=== PATIENT | male | born 1955 | race Caucasian/White ===

== ENCOUNTER 2017-08-26 10:51 | Emergency (ER) | payer OTHER, SELFPAY ==
[2017-08-26 10:52] VITALS: BP 153/98; PULSE 76; RESP 14; TEMP 37.3; O2SAT 96; BMI 24.9
--- NOTE | 2017-08-26 11:12 | CT_ITS ---
STUDY: CT ABDOMEN AND PELVIS WITHOUT CONTRAST REASON FOR EXAM: Male, 61 years old. 2 day history of left lower quadrant abdominal pain with cramping. RADIATION DOSAGE (If Supplied By Facility): CTDIvol = ( 6.93 ) mGy, DLP = ( 337.65 ) mGycm TECHNIQUE: Transaxial images were obtained from the dome of the diaphragm to the symphysis pubis without oral contrast, and without intravenous contrast. Sagittal and coronal images were reconstructed. Individualized dose optimization techniques were used for this CT. COMPARISON: None. FINDINGS: Small calcified granuloma in the posterior medial segment of the left lower lobe. The visualized portions of the heart are within normal limits. Normal liver. Normal gallbladder and extrahepatic biliary system. There are multiple benign calcified granulomata of the spleen. Normal pancreas. Normal bilateral adrenal glands. Normal right kidney. Normal left kidney. There is a small hiatal hernia. Normal small intestine. There is diverticulosis, with thickening of the colon wall, and pericolonic inflammation changes consistent with acute diverticulitis. The appendix is visualized and appears normal. There is scattered atherosclerotic calcification of the abdominal aorta, without a demonstrated aneurysm. Normal inferior vena cava. There is borderline retroperitoneal lymphadenopathy with enlarged nodes no greater than 10mm in the short axis diameter. Normal urinary bladder. There are prostatic calcifications. There is a small umbilical hernia containing fat. Small left inguinal hernia containing fat. There are degenerative changes of the visualized lumbar spine. Limbus vertebrae of the superior endplate of the L4 vertebrae. CT/Abdomen/Pelvis without Cont IMPRESSION: Circumferential wall thickening with increased markings in the surrounding peritoneal fat involving the distal descending colon and sigmoid colon into both acute diverticulitis. Radiographic follow-up is recommended to rule out possible underlying neoplastic process. No abnormal fluid collection is seen at this time. Electronically Signed: Jose F Hernandez MD at 12:54 EDT Tel [phone], Service support ,
[2017-08-26 11:41] LABS: Bacteria 0 SEEN /hpf (None Seen); Mucous, Urine 0 SEEN /hpf (<or=2+); Red Blood Cells-Urine 0 SEEN /hpf (0-5); Squamous Epithelial Cells - UA 0 SEEN /hpf (0-5)
[2017-08-26 11:43] LABS: Absolute Neutrophil Count 8.6 X10^3/uL (2.0-7.7); Eosinophil# 0.02 X10^3/uL; Eosinophils% 0.2 % (0-5); Hematocrit 45.4 % (40-54); Hemoglobin 15.6 g/dl (13.0-16.5); Lymphocyte % 6.7 % (19-41); Mean Corp Hgb Conc 34.4 g/gl (32-36); Mean Corpuscular Hgb 32.8 pg (27.0-32.0); Mean Corpuscular Volume 95.4 fL (80-94); Mean Platelet Vol. 9.9 fl (6.2-12.0); Monocyte# 1.14 X10^3/uL; Monocyte% 10.9 % (0-10); Neutrophil # 8.56 X10^3/uL (2.7-7.7); Neutrophil % 82.1 % (47-70); Platelet Count 209 K/mm3 (150-450); RBC Distribution Width CV 12.7 % (11.6-14.6); RBC Distribution Width SD 44.1 fl (35.1-43.9); Red Blood Count 4.76 M/mm3 (4.6-6.2); White Blood Count 10.4 K/mm3 (4.4-11.0)
[2017-08-26 11:43] LABS: Color, Urine Yellow (Yellow); Glucose, Dipstick Normal (Normal); Ketone-Dipstick Negative (Negative); Leukocyte Esterase-Dipstick 25 /ul (Negative); Nitrite-Dipstick Negative (Negative); Occult Blood-Urine Negative /ul (Negative); Protein-Dipstick Negative (Negative); Urine Bilirubin Dipstick Negative (Negative); Urine Clarity Sl. Cloudy (Clear); Urine Urobilinogen Normal (Normal)
[2017-08-26] MEDS: 0.9% Normal Saline 1,000 ML 125 ML IV ×2 (11:45→11:55)
[2017-08-26 11:49] LABS: POSITIVE COUNT NO; POSITIVE DIFFERENTIAL NO; POSITIVE MORPHOLOGY NO
[2017-08-26 11:54] LABS: Anion Gap 7 (5-15); BUN 14 mg/dL (7-18); BUN/Creat Ratio 14.7 RATIO (10-20); Calcium,Total 8.9 mg/dL (8.5-10.1); Chloride 102 mmol/L (98-107); Creatinine, Serum 0.95 mg/dL (0.70-1.30); EST Glomerular Filtration Rate 85 mL/min (>60); Est Glom Filt Rate - Afr Amer 103 mL/min (>60); Estimated Creatinine Clearance 84.31 ml/min; Glucose 105 mg/dL (74-106); Sodium Level 138 mmol/L (136-145)
[2017-08-26 11:57] LABS: White Blood Cells 0-5 SEEN /hpf (0-5)
[2017-08-26 13:00] VITALS: BP 172/111; PULSE 72; RESP 16; O2SAT 97
[2017-08-26 13:10] VITALS: BP 172/111; PULSE 80; RESP 16; O2SAT 98
--- NOTE | 2017-08-26 13:15 | ED.DCSUM_ITS ---
- ER Visit Summary Date of Service: 08/26/17 Chief Complaint: [Abdominal pain] History of Present Illness: The patient is a 61 M [presents the emergency department with abdominal pain that started yesterday. Patient was seen at urgent care today and sent to the ER. Patient denies any blood in his stool or black tarry stool. Patient denies any fever. Patient states that intermittently he will have severe pain to the left lower quadrant. Patient is never had discomfort like this before. Patient has not had any fevers. Patient denies urinary symptoms.] Physical Examination: [HEENT-PERRLA, EOMI. Cranial nerves II through XII grossly intact. TMs clear. Mucous membranes moist. No adenopathy. Cardiovascular-regular rate and rhythm without murmur or ectopy Lungs-clear to auscultation, chest wall stable without crepitus or subcu emphysema Abdomen-normoactive bowel sounds, soft. Patient has tenderness to the left lower quadrant with some guarding. There is no rebound, rigidity, or perineal signs. Extremities-intact ?4, normal range of motion, normal pulses, atraumatic] Test Results: [CBC with differential obtained showing a 10.4, hemoglobin 15.6, hematocrit 45, placed 209. Chemistries unremarkable. Urinalysis was normal. CT flank showed diverticulitis of the descending and sigmoid colon and recommended follow-up to resolution as neoplastic process could not be ruled out.] Emergency Department Course and Treatment: [She was started on Cipro and Flagyl p.o.] Treatment Plan: [Patient will be given a prescription for Cipro and Flagyl as well as [place] for pain. Patient advised to follow-up with his primary care physician within next 3-5 days.] Disposition: [Discharged home in stable condition. Patient advised to return if worsening pain, fever, bloody stools, or condition should worsen in any way. ] Patient understands importance of following up with primary care physician and follow-up imaging to resolution of symptoms. Patient states that he is due for another colonoscopy as well as he is 1 year overdue. Impression: [Abdominal pain Acute diverticulitis] This note was generated with [employer] software. It may contain incorrect words, spelling, and punctuation that were not noted in review of the chart prior to signing ED Disposition - Plan for ED Patient: Chief Complaint: Abd Pain Referrals: Finn Lovett MD [Primary Care Provider] -
--- NOTE | 2017-08-26 13:15 | ED.DEP ---
ED Disposition - Plan for ED Patient: Chief Complaint: Abd Pain Instructions: ED Diverticulitis Prescriptions: Hydrocodone Bitart/Apap 5-325 [[place] 5MG-325MG] 1 tab PO Q4H PRN PRN 2 Days #10 tab PRN Reason: Pain Metronidazole [Flagyl] 500 mg PO Q8H #30 tab Ciprofloxacin [Cipro] 500 mg PO BID #20 tab Referrals: Finn Lovett MD [Primary Care Provider] - 3-5 Days
[2017-08-26] MEDS: metroNIDAZOLE 500 MG Tablet PO (13:19)
[2017-08-26] MEDS: Ciprofloxacin 250 MG Tablet 500 MG PO (13:19)
--- NOTE | 2017-08-26 13:19 | DCINST.ED_ITS ---
ED Disposition - Plan for ED Patient: Chief Complaint: Abd Pain Instructions: ED Diverticulitis Prescriptions: Hydrocodone Bitart/Apap 5-325 [[place] 5MG-325MG] 1 tab PO Q4H PRN PRN 2 Days #10 tab PRN Reason: Pain Metronidazole [Flagyl] 500 mg PO Q8H #30 tab Ciprofloxacin [Cipro] 500 mg PO BID #20 tab Referrals: Finn Lovett MD [Primary Care Provider] - 3-5 Days
== END 2017-08-26 13:34 | disposition home or self-care (01) ==
PROVIDERS: Emergency Provider Emergency Medicine; Family Provider Family Medicine; PCP Family Medicine
DX: K57.32 Diverticulitis of large intestine without perforation or abscess without bleeding (principal); R10.32 Left lower quadrant pain
CPT/HCPCS: 74176; 80048; 81001; 85025; 96360; 96361; 99284; J7030; A4216

== ENCOUNTER 2019-03-16 18:32 | Emergency (ER) | payer OTHER, SELFPAY ==
[2019-03-16 18:34] VITALS: BP 155/79; PULSE 73; RESP 18; TEMP 36.4; O2SAT 99; BMI 23.3
--- NOTE | 2019-03-16 18:50 | ED.VISSUMM ---
- ER Visit Summary Date of Service: 03/16/19 Chief Complaint: Left leg swelling History of Present Illness: The patient is a 63 M who presents with left leg swelling that began last night. Patient states he noticed it when he was getting undressed last night. Patient noted some indentation where his sock was. Patient denies any pain. Patient denies any paresthesias or weakness. Patient denies any fevers or chills. Patient denies any chest pain or shortness of breath. Patient denies any nausea or vomiting. Patient denies any recent surgery or recent travel. Physical Examination: Vital signs are stable. Patient is afebrile. Patient is in no acute distress. Heart was regular rate and rhythm. Lungs are clear and equal bilaterally. Abdomen is soft and nontender. Cranial nerves II through XII are intact. There are no focal motor or sensory deficits noted. Extremities are intact. There is 1+ nonpitting edema of the left lower extremity. There is no calf tenderness. Posterior tibial pulses are equal bilaterally. There is no pain with dorsiflexion of the ankles. Test Results: CBC and basic metabolic profile were obtained and were essentially within normal limits. Creatinine was slightly elevated at 1.32. PT with INR and PTT were obtained and were normal. D-dimer was obtained was normal. Emergency Department Course and Treatment: Patient was instructed to elevate his left leg. Patient was instructed to follow-up with his primary care physician in 5 to 7 days. Patient understood and was agreeable with the plan. All questions were answered. Disposition: Discharge home Impression: Left leg edema This note was generated with [employer] dictation software. It may contain incorrect words, spelling, and punctuation that were not noted in review of the chart prior to signing ED Disposition - Plan for ED Patient: Disposition: Home or Assisted Living Diagnosis: Leg edema, left Instructions: ED Peripheral Edema, Unilateral Referrals: Finn Lovett MD [Primary Care Provider] - 3-5 Days
[2019-03-16 19:13] LABS: Absolute Lymphocyte Count 1.18 X10^3/uL (0.83-4.51); Absolute Neutrophil Count 2.6 X10^3/uL (2.0-7.7); Basophil# 0.02 X10^3/uL; Basophil% 0.5 % (0-1); Eosinophil# 0.09 X10^3/uL; Hematocrit 42.2 % (40-54); Hemoglobin 14.3 g/dL (13.0-16.5); Lymphocyte # 1.18 X10^3/ul (4.0); Lymphocyte % 26.8 % (19-41); Mean Corp Hgb Conc 33.9 g/dL (32-36); Mean Corpuscular Hgb 32.3 pg (27.0-32.0); Mean Corpuscular Volume 95.3 fL (80-94); Mean Platelet Vol. 9.7 fl (6.2-12.0); Monocyte# 0.53 X10^3/uL; NRBC Flagged by Analyzer 0 % (0-5); Neutrophil # 2.58 X10^3/uL (2.7-7.7); Neutrophil % 58.5 % (47-70); Platelet Count 212 K/mm3 (150-450); RBC Distribution Width CV 12.6 % (11.6-14.6); RBC Distribution Width SD 44.4 fl (35.1-43.9); Red Blood Count 4.43 M/mm3 (4.6-6.2); White Blood Count 4.4 K/mm3 (4.4-11.0)
[2019-03-16 19:25] LABS: Anion Gap 7 (5-15); BUN 21 mg/dL (7-18); BUN/Creat Ratio 15.9 RATIO (10-20); Calcium,Total 8.9 mg/dL (8.5-10.1); Chloride 103 mmol/L (98-107); Creatinine, Serum 1.32 mg/dL (0.70-1.30); EST Glomerular Filtration Rate 58 mL/min (>60); Est Glom Filt Rate - Afr Amer 70 mL/min (>60); Estimated Creatinine Clearance 59.14 ml/min; Glucose 118 mg/dL (74-106); Potassium 3.9 mmol/L (3.5-5.1); Sodium Level 140 mmol/L (136-145)
[2019-03-16 19:29] LABS: Prothrombin Time (Protime)PT. 12.9 SECONDS (11.7-14.9)
[2019-03-16 19:30] LABS: Partial Thromboplast Time 29.1 Seconds (24.1-36.2)
[2019-03-16 19:36] LABS: D-Dimer Quantitative (DVT/PE) 0.48 FEU/ug/m (0.27-0.49)
[2019-03-16 19:56] VITALS: RESP 16
== END 2019-03-16 19:57 | disposition home or self-care (01) ==
PROVIDERS: Emergency Provider Emergency Medicine; Family Provider Family Medicine; PCP Family Medicine
DX: R60.0 Localized edema (principal); I10 Essential (primary) hypertension
CPT/HCPCS: 80048; 85025; 85379; 85610; 85730; 99282; A4216

== ENCOUNTER 2021-03-28 15:13 | Outpatient (CLI) | payer OTHER, SELFPAY ==
[2021-03-28 15:48] VITALS: BP 133/81; PULSE 67; RESP 16; TEMP 36.9; O2SAT 99; BMI 22.2
[2021-03-28] MEDS: 0.9% Saline Lock 10 ML Syringe IV (15:51)
[2021-03-28 16:21] VITALS: BP 131/71; PULSE 64; RESP 16; TEMP 36.6; O2SAT 99
[2021-03-28 17:21] VITALS: BP 135/84; PULSE 61; RESP 16; TEMP 36.6; O2SAT 100
== END 2021-03-28 17:21 | disposition home or self-care (01) ==
LOC: MS3OUT 15:13 → MS3 15:14
PROVIDERS: PCP Family Medicine; Referring Provider Nurse Practitioner Adult Health; Visit Provider Nurse Practitioner Adult Health
DX: Z23 Encounter for immunization (principal); U07.1 COVID-19
CPT/HCPCS: J7050; M0245; Q0245; A4216

== ENCOUNTER 2022-08-28 19:59 | Emergency (ER) | payer MEDICARE, SELFPAY ==
[2022-08-28 20:00] VITALS: BP 137/87; PULSE 60; RESP 18; TEMP 36.7; O2SAT 98; BMI 23.2
--- NOTE | 2022-08-28 20:10 | ED.VIS.FALL ---
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 He about about 1 step up when he fell forward and struck his head on the ground. No LOC. He states he finished the job when he got home his family was very concerned with the amount of bruising and sent him to the ED. He denies blood thinners. He has no headache, vision changes, nausea, vomiting. He has history of remote neck surgery and chronic neck pain and reports no increase in pain. He has no other injuries. Tetanus is up-to-date. PFSH <BUBBA Kang - Last Filed: 08/28/22 20:54> [facility] Medical History (Updated 08/28/22 @ 20:15 by BUBBA Kang) Carpal tunnel syndrome Hypertension Lower back injury Home Medications lisinopril 10 mg tablet 10 mg PO DAILY 03/28/21 [History Last Taken Unknown] Allergy/AdvReac Type Severity Reaction Status Date / Time terbinafine Allergy Severe Rash Verified 08/28/22 20:03 Surgical History (Updated 08/28/22 @ 20:11 by Ne Bryan) H/O neck surgery Social History Smoking Status: Never smoker ROS <BUBBA Kang - Last Filed: 08/28/22 20:54> ROS ED ROS Narrative Constitutional: Negative for fever, chills, malaise. Eyes: Negative for visual change. CVS: Negative for chest pain. Respiratory: Negative for shortness of breath. GI: Negative for nausea, vomiting. Neuro: Negative for headache, motor/sensory dysfunction. Skin: Positive for wound. Musc: Negative for joint pain, swelling, trauma. EXAM <BUBBA Kang - Last Filed: 08/28/22 20:54> Physical Exam Narrative Exam Narrative: CONST: Patient sitting in no acute distress. EYES: Normal inspection. HEAD: Ecchymosis and mild swelling right frontal temporal region with right raccoon eye, 1 cm laceration lateral to the right eye. No bony tenderness or crepitus. No epistaxis or nasal septal hematoma, no hemotympanum, no CSF otorrhea or rhinorrhea. NECK: Normal inspection. No midline spinal tenderness, no step off or crepitus. RESP: No respiratory distress, CTAB. Chest wall nontender. CVS: Regular rate and rhythm, no murmur, no gallop. ABD: Soft and nontender, no guarding or rebound, nondistended. Back: Normal inspection, no midline spinal tenderness or step-offs. SKIN: Small laceration lateral to right eye. EXTREMITIES: Normal appearance, full range of motion, 2+ radial and PT pulses. NEURO: Oriented x4. PSYCH: Normal affect. Const Vital Signs: 08/28/22 20:00 Temperature 98.0 F Temperature Source Temporal Pulse Rate 60 Respiratory Rate 18 Blood Pressure 137/87 H Blood Pressure Mean 103 Pulse Ox 98 Oxygen Delivery Method Room Air <Dr. Jason Dias DO - Last Filed: 08/29/22 00:29> Physical Exam Const Vital Signs: 08/28/22 20:00 Temperature 98.0 F Temperature Source Temporal Pulse Rate 60 Respiratory Rate 18 Blood Pressure 137/87 H Blood Pressure Mean 103 Pulse Ox 98 Oxygen Delivery Method Room Air MDM <BUBBA Kang - Last Filed: 08/28/22 20:54> [facility] Narrative Medical decision making narrative: History gathered from: Patient and Patient had a mechanical fall with closed head injury without loss of consciousness. He is awake and alert, GCS 15. Vital signs within normal limits. He does have bruising and soft tissue swelling to the right upper half of his face and right periorbital ecchymosis. There is a small laceration lateral to his right eye that is slowly bleeding and will require repair. There is no significant bony tenderness or crepitus. He has no midline spinal tenderness but does report chronic neck pain and history of remote surgery. He is neurologically intact and has no other injuries. CT scans of the brain, facial bones, and CT spine were obtained and are all negative for acute findings. Patient given head injury return precautions and discharged in stable condition. Differential: Facial contusions, underlying skull fracture or intracranial bleed Procedure note: 1 cm linear laceration lateral to right eye requires repair. I anesthetized the area with half a cc of 1% lidocaine and thoroughly cleansed the area with Shur-Clens. Wound explored and there is no foreign body. Was prepped and draped in sterile condition and I closed it with 2 simple interrupted sutures of 6-0 Ethilon with good hemostasis and wound repair. Patient tolerated procedure well with no complications. His tetanus is up-to-date. Discussed wound care and suture removal in 4 to 5 days. Radiography Diagnostic Testing: Clinical Impression(s) from Imaging Studies Brain CT 08/28/22 20:25 IMPRESSION: There are no acute intracranial findings. There is no underlying fracture. Soft tissue swelling of the periorbital region and right forehead. Electronically Signed: Chong Forrester MD at 20:47 EDT , Cervical Spine CT 08/28/22 20:25 IMPRESSION: Degenerative changes of the cervical spine. There is mild straightening of the normal cervical lordosis. This can suggest neck strain. Electronically Signed: Chong Forrester MD at 20:49 EDT , Facial/Sinus 08/28/22 20:25 IMPRESSION: There is no underlying fracture. Soft tissue swelling of the periorbital region and right forehead. Electronically Signed: Chong Forrester MD at 20:48 EDT , <Dr. Jason Dias, DO - Last Filed: 08/29/22 00:29> MDM Radiography Diagnostic Testing: Clinical Impression(s) from Imaging Studies Brain CT 08/28/22 20:25 IMPRESSION: There are no acute intracranial findings. There is no underlying fracture. Soft tissue swelling of the periorbital region and right forehead. Electronically Signed: Chong Forrester MD at 20:47 EDT , Cervical Spine CT 08/28/22 20:25 IMPRESSION: Degenerative changes of the cervical spine. There is mild straightening of the normal cervical lordosis. This can suggest neck strain. Electronically Signed: Chong Forrester MD at 20:49 EDT , Facial/Sinus 08/28/22 20:25 IMPRESSION: There is no underlying fracture. Soft tissue swelling of the periorbital region and right forehead. Electronically Signed: Chong Forrester MD at 20:48 EDT , Treatment and Re-Evaluation Narrative: ED attending note: I evaluated the patient in conjunction with the DEVON. I agree with his/her statements and above findings. I have personally performed a face to face assessment of the patient and have reviewed the DEVON Note. I performed a substantive portion of the visit including all aspects of the following. I personally saw the patient performed chart review, physical exam, reviewed labs, imaging (if obtained), and formulated a treatment and management plan. Exam: Nursing triage notes reviewed, Vital signs reviewed Primary Survey Airway: Intact Breathing: Bilateral breath sounds Circulation: Palpable bilateral femorals, Palpable bilateral radial, Palpable bilateral DP and Palpable bilateral PT Disability / Spine precautions GCS Score: Eye Openin Verbal Response: 5 Motor Response: 6 Secondary Survey Constitutional: Please see MDM Head: Bruising noted to the right forehead, zygomatic arch, small laceration noted lateral to the right eye, no cephalhematoma, midface is stable Eye: Pupils equal round and reactive to light, Extraocular muscles intact and No periorbital ecchymosis or stepoff, no evidence of entrapment ENT: Oropharynx clear, no lacerations, no hemotympanum, no raccoon eyes or valdivia sign Cervical spine / Neck: No cervical spine bony tenderness, crepitance, or stepoff deformity Trachea midline Lungs: Clear to auscultation, No asymmetric rise and No crepitus, no flail chest Cardiac: Regular rate and rhythm and No murmurs Abdomen: Soft, Nontender and No rebound Pelvis: Pelvis stable to compression : No evidence of genital injury Back: No midline bony tenderness to thoracic/lumbar/sacral spines Neuro: At baseline, intact strength and sensation in bilateral upper and lower extremities. 2+ patellar reflexes bilaterally. Extremities: NO gross Deformities Psych: Normal affect Nursing triage notes reviewed, Vital signs reviewed MDM/plan: Chief Complaint: Mechanical fall, head trauma External records reviewed: I considered the following differential diagnosis: ICH, cervical spine injury, facial fracture dislocation Primary secondary trauma surveys were remarkable for the above differential diagnosis We obtained imaging of the head, cervical spine and face. These were negative. The patient's laceration was repaired by the physician management assistant. Please see her above procedure note. Patient's tertiary trauma exam revealed no evidence of new traumatic injuries. He is appropriate for discharge home with strict return precautions and follow-up instructions. Factors affecting care: None Social determinants of health: Never smoker History obtained from others: The patient's Shared decision making: I will have a discussion with the patient and or visitors regarding risk/benefits of further testing or admission. They will be made aware of of the risk/benefits inherent in this decision they will be given the opportunity to voice understanding. Consults: None Discharge Plan Triage Chief Complaint: Fall ED Midlevel Provider: Jessica Gardiner ED Provider: Jason Dias Dx/Rx/DC Orders Clinical Impression: Closed head injury without loss of consciousness, Facial laceration Instructions: ED Head Injury (Adult) Prescriptions: No Action lisinopril 10 mg tablet 10 mg PO DAILY Primary Care Provider: Finn Lovett Referrals: Finn Lovett MD [Primary Care Provider] - Activity Restrictions/Additional Instructions: Your stitches need taken out in 4 to 5 days. Take Tylenol or Motrin as needed for pain. Return for worsening symptoms such as severe headache, vision changes, vomiting, confusion etc. Disposition Disposition: Home, Self Care Discharge Date/Time: 08/28/22 21:00
--- NOTE | 2022-08-28 20:25 | CT_ITS ---
EXAM: CT SPINE - CERVICAL WITHOUT IV REASON FOR EXAM: Male, 66 years old. NECK PAIN neck pain HISTORY: NECK PAIN neck pain Individualized dose optimization techniques were used for this CT. TECHNIQUE: Multiplanar images were obtained of the cervical spine. IV contrast was not utilized. COMPARISON: None. FINDINGS: The vertebral bodies do maintain their height. The odontoid process is intact. No pre-vertebral soft tissue swelling is seen. The intravertebral disc height is lost. There are scattered lymph nodes in the neck. There are degenerative changes of the osseous structures. There is bilateral facet arthropathy. There are scattered levels of foraminal stenosis. There are vascular calcifications. There is mild straightening of the normal cervical lordosis. This can suggest neck strain. Anterior fusion plate and fusion disc material at C5-6. CT/Spine Cervical without Contras IMPRESSION: Degenerative changes of the cervical spine. There is mild straightening of the normal cervical lordosis. This can suggest neck strain. Electronically Signed: Chong Forrester MD at 20:49 EDT ,
--- NOTE | 2022-08-28 20:25 | CT_ITS ---
STUDY: CT BRAIN WITHOUT CONTRAST REASON FOR EXAM: Male, 66 years old. head injury TECHNIQUE: Transaxial CT imaging of the brain was performed without administration of intravenous contrast material. Individualized dose optimization techniques were used for this CT. COMPARISON: None FINDINGS: Normal calvarium. There is no underlying fracture. Soft tissue swelling of the periorbital region and right forehead. Normal size ventricles and extra-axial spaces for the patient''s age. Normal white matter tracts of the cerebral hemispheres. Normal basal ganglia and thalami. Normal brainstem. Normal cerebellum. There is no intracranial hemorrhage. There are no findings of an acute ischemic infarction. Normal visualized paranasal sinuses. ASPECTS 10 CT/Brain/Head without Contrast IMPRESSION: There are no acute intracranial findings. There is no underlying fracture. Soft tissue swelling of the periorbital region and right forehead. Electronically Signed: Chong Forrester MD at 20:47 EDT ,
--- NOTE | 2022-08-28 20:25 | CT_ITS ---
EXAM: CT MAXILLOFACIAL WITHOUT INTRAVENOUS CONTRAST CLINICAL INDICATION: right sided facial injury r/o fracture TECHNIQUE: Helically acquired images were obtained of the face without intravenous contrast. This CT exam was performed using one or more of the following dose reduction techniques: automated exposure control, adjustment of the mA and/or kV according to patient size, and/or use of iterative reconstruction technique. RADIATION DOSE: CTDIvol = 29.38 mGy, DLP = 620.92 mGy-cm COMPARISON: No relevant prior studies available. FINDINGS: BONES/JOINTS: There is no underlying fracture. Soft tissue swelling of the periorbital region and right forehead. No discrete lytic or blastic abnormalities. SOFT TISSUES: See above. ORBITS: Unremarkable. Both globes are unremarkable. Extraocular muscles are normal. Retrobulbar fat appears unremarkable. SINUSES: Unremarkable as visualized. Clear. MASTOID AIR CELLS: Unremarkable as visualized. Clear. DENTAL: No acute findings. No periodontal osseous erosion. CT/Sinus/Facial Bone IMPRESSION: There is no underlying fracture. Soft tissue swelling of the periorbital region and right forehead. Electronically Signed: Chong Forrester MD at 20:48 EDT ,
[2022-08-28] MEDS: Lidocaine 1% (20 ml mdv) 20 ML Vial INFILT (20:55)
== END 2022-08-28 21:00 | disposition home or self-care (01) ==
PROVIDERS: Emergency Provider Emergency Medicine; PCP Family Medicine; Visit Provider Emergency Medicine
DX: S01.81XA Laceration without foreign body of other part of head, initial encounter (principal); I10 Essential (primary) hypertension; W10.9XXA Fall (on) (from) unspecified stairs and steps, initial encounter; S09.8XXA Other specified injuries of head, initial encounter; Y93.89 Activity, other specified; Z79.899 Other long term (current) drug therapy
CPT/HCPCS: 12011; 70450; 70486; 72125; 99282

== ENCOUNTER 2022-08-30 09:43 | Emergency (ER) | payer MEDICARE, SELFPAY ==
[2022-08-30 09:43] VITALS: BP 176/110; PULSE 77; RESP 14; TEMP 36.2; O2SAT 99; BMI 22.9
--- NOTE | 2022-08-30 10:04 | EX.ED.UPPERE ---
HPI History of Present Illness Chief Complaint: Upper Extremity Injury [facility] Medical History (Updated 08/30/22 @ 11:[address] Jason Dias, DO) Carpal tunnel syndrome Hypertension Lower back injury Home Medications lisinopril 10 mg tablet 10 mg PO DAILY 03/28/21 [History Last Taken Unknown] Allergy/AdvReac Type Severity Reaction Status Date / Time terbinafine Allergy Severe Rash Verified 08/30/22 09:45 Surgical History H/O neck surgery Social History Smoking Status: Never smoker EXAM Physical Exam Const Vital Signs: 08/30/22 09:43 Temperature 97.2 F L Temperature Source Temporal Pulse Rate 77 Respiratory Rate 14 Blood Pressure 176/110 H Blood Pressure Mean 132 Pulse Ox 99 Oxygen Delivery Method Room Air [facility] Medical decision making narrative: HISTORY OF PRESENT ILLNESS: 66-year-old male here for left hand pain. Does note a fall on Wednesday. States had no pain initially but since developed bruising and pain over the base of the first digit of the left hand. Denies any prior injury. He is right-hand dominant. States the pain is constant, severe without alleviating exacerbating features. He does also endorse worsening lower neck pain. REVIEW OF SYSTEMS: Pertinent positives: Left hand pain Pertinent negatives: Loss of sensation, loss of movement in the left upper extremity PHYSICAL EXAM: Nursing triage notes reviewed, Vital signs reviewed Constitutional: please see mdm HENT: MMM Eyes: Pupils equal round and reactive to light, Extraocular muscles intact Neck: No stridor, no JVD, full neck ROM, TTP over base of cervical spine no step-offs deformities. Extremities: Bruising over left hand TTP over base of the first metatarsal, positive scaphoid bone tenderness, Neuro: Intact 5/5 strength with ok sign (median), intact finger abduction (ulnar) intact wrist extension (radial n). Intact sensation in the radial, ulnar, and median nerve distributions. Skin: No rash or lesions noted MEDICAL DECISION MAKING: Chief Complaint: Left hand pain, neck pain External records reviewed: Seen on 08/28/2022. Underwent CT scan of the brain cervical spine and face. Imaging was [facility] Narrative: I considered the following differential diagnosis: Hand contusion, fracture dislocation I obtained imaging of the left hand. X-ray showed no evidence of acute fracture dislocation. Given scaphoid tenderness I did place the patient in thumb spica splint and encouraged him to follow-up with orthopedics for outpatient reevaluation. I assessed the patient's neck pain there is no obvious upper extremity neurologic deficit or step-off or deformity in the setting of a negative CT scan of cervical spine 2 days ago. I would low suspicion for cervical spine fracture dislocation or life or limb during cervical spine injury. Factors affecting care: None Social determinants of health: Elderly History obtained from others: Shared decision making: I will have a discussion with the patient and or visitors regarding risk/benefits of further testing or admission. They will be made aware of of the risk/benefits inherent in this decision they will be given the opportunity to voice understanding. Consults: None Discharge Plan Triage Chief Complaint: Upper Extremity Injury ED Provider: Jason Dias Dx/Rx/DC Orders Clinical Impression: Left wrist sprain Instructions: ED Possible Wrist Fracture, ED Wrist Sprain Prescriptions: No Action lisinopril 10 mg tablet 10 mg PO DAILY Primary Care Provider: Finn Lovett Referrals: Jim De La Cruz MD [Non-Staff] - Activity Restrictions/Additional Instructions: Thank you for trusting us with your care today! Please take Tylenol (2 pills, 650 mg), ibuprofen (2 pills, 400 mg) every 6 hours as needed for pain and fever control. Please return to the emergency department if your symptoms change or worsen. Please follow with your primary care physician for further outpatient evaluation and management. Disposition Disposition: Home, Self Care
--- NOTE | 2022-08-30 10:35 | RAD_ITS ---
STUDY: X-RAY - LEFT HAND REASON FOR EXAM: Male, 66 years old. base of the 1st TTP TECHNIQUE: 3 view(s) of the hand. COMPARISON: None. FINDINGS: There are severe narrowing of the second third MCP joint spaces. Moderate to severe narrowing of the third MCP joint space. Bulky osteophyte formation is present around the head of the third metacarpal bone. Normal radiocarpal articulation. Normal distal radioulnar joint. There is moderate degenerative arthrosis of the carpometacarpal (CMC) articulation of the thumb. There is also moderate degeneration of the triscaphe articulation. Normal second through fifth carpometacarpal joints. Normal metacarpi. Normal metacarpophalangeal joint of the thumb. Normal interphalangeal joint of the thumb. Normal proximal and distal phalanges of the thumb. Normal proximal and distal interphalangeal joints of the second through fifth fingers. Normal phalanges of the second through fifth fingers. The soft tissue structures are unremarkable. RAD/Hand Min 3 Views IMPRESSION: Degenerative joint disease of the hand and wrist, as described above. Electronically Signed: Anibal Garcia MD at 11:16 EDT ,
== END 2022-08-30 12:00 | disposition home or self-care (01) ==
PROVIDERS: Emergency Provider Emergency Medicine; PCP Family Medicine; Visit Provider Emergency Medicine
DX: S63.92XA Sprain of unspecified part of left wrist and hand, initial encounter (principal); I10 Essential (primary) hypertension; Z79.899 Other long term (current) drug therapy; W19.XXXA Unspecified fall, initial encounter
CPT/HCPCS: 73130; 99283

== ENCOUNTER → 2024-03-13 | Outpatient (CLI) | payer MEDICARE, SELFPAY ==
--- NOTE | 2024-03-13 06:34 | ECHOD_ITS ---
Reason For Study: ARRHYTHMIA Procedure This was a 2D Doppler, Color Flow transthoracic echocardiogram. Exam performed in department. Left Ventricle Normal LV size. The estimated ejection fraction is 60 %. Normal diastology for age. No regional wall motion abnormalities noted. Right Ventricle Normal RV size. Normal systolic function. Atria The left and right atria are normal. Prominent eustachian valve. Bubble contrast study is negative for PFO/ASD. Mitral Valve The mitral valve is structurally normal. No prolapse or stenosis seen. Mild (1+) mitral valve insufficiency. Tricuspid Valve Normal tricuspid valve. Mild (1+) tricuspid valve insufficiency. Pulmonary artery systolic pressure is 26 mmHg. Aortic Valve Trisinus/trileaflet aortic valve. Mild focal aortic valve thickening. Pulmonic Valve Normal pulmonic valve. Mild (1+) pulmonic valve insufficiency. Great Vessels Mildly dilated aortic root. Pericardium/Pleural No pericardial effusion. Medication 22 gauge I.V. with prn adaptor inserted into right arm. Performed a rapid injection of agitated mix of 9 cc saline and 1cc air to assess for atrial septal defect. MMode/2D Measurements & Calculations LVIDd: 5.4 cm IVSd: 1.0 cm LVOT diam: 2.3 cm LVIDs: 3.0 cm LVPWd: 0.92 cm RVDd: 3.8 cm FS: 44.4 % LVOT area: 4.2 cm2 asc Aorta Diam: 4.2 cm LAV(MOD-bp): 47.3 ml LVAd ap4: 24.5 cm2 LAV(MOD-bp) Indexed: 24.6 ml/m2 LVLd ap4: 7.3 cm LAV(MOD-sp2): 50.9 ml EDV(MOD-sp4): 66.9 ml LAV(MOD-sp4): 44.7 ml EDV(sp4-el): 69.5 ml LVAs ap4: 12.4 cm2 LVLs ap4: 5.7 cm ESV(MOD-sp4): 22.2 ml ESV(sp4-el): 22.9 ml EF(MOD-sp4): 66.9 % EF(sp4-el): 67.0 % LVAd ap2: 24.0 cm2 SV(MOD-sp4): 44.8 ml SV(MOD-sp2): 39.8 ml LVLd ap2: 7.7 cm SI(MOD-sp4): 23.3 ml/m2 SI(MOD-sp2): 20.7 ml/m2 EDV(MOD-sp2): 64.9 ml EDV(sp2-el): 63.5 ml LVAs ap2: 13.8 cm2 LVLs ap2: 7.1 cm ESV(MOD-sp2): 25.1 ml ESV(sp2-el): 22.8 ml EF(MOD-sp2): 61.4 % SV(sp4-el): 46.6 ml Ao sinus diam: 4.[address] Junction: 3.5 cm LA dimension(2D): 4.0 cm LA A4 area: 16.6 cm2 RA A4 area: 14.9 cm2 TAPSE: 2.0 cm Time Measurements MV dec time: 0.19 sec Doppler Measurements & Calculations MV E max liang: 84.1 cm/sec Lat Peak E' Liang: 9.5 cm/sec Med Peak E' Liang: 7.2 cm/sec MV A max liang: 62.0 cm/sec E/E' lat: 8.9 E/E' med: 11.7 MV E/A: 1.4 MV dec slope: 432.5 cm/sec2 Ao V2 max: 128.7 cm/sec LV V1 max: 90.8 cm/sec Ao max P.6 mmHg LV V1 max P.3 mmHg Ao V2 mean: 98.7 cm/sec LV V1 mean P.0 mmHg Ao mean P.1 mmHg LV V1 mean: 68.5 cm/sec Ao V2 VTI: 26.5 cm LV V1 VTI: 20.7 cm AV (velocity ratio): 0.78 GRACE(I,D): 3.3 cm2 GRACE(V,D): 3.0 cm2 SV(LVOT): 87.3 ml PA V2 max: 88.8 cm/sec TR max liang: 240.3 cm/sec TR max P.1 mmHg ECHO/Echo Complete Interpretation Summary The estimated ejection fraction is 60 %. Mild (1+) mitral valve insufficiency. Mild (1+) tricuspid valve insufficiency. Mildly dilated aortic root. Bubble contrast study is negative for PFO/ASD. Ordering Physician: Farzaneh Deluna Referring Physician: MD Bony Finn Performed By: Aydee Barrow DAYLIN
--- NOTE | 2024-03-13 09:20 | STRESSREP_ITS ---
Stress Test Report Date: 03/13/2024 Procedure: Exercise tolerance test/imaging study Indications: Abnormal ECG, elevated coronary calcium score Consent: Per the patient Procedure: The patient exercised on a Florentin protocol for 8 minutes achieving a peak heart rate of 130 bpm (85% predicted maximal heart rate) with a peak blood pressure 190/78 mmHg and a peak MET capacity of 10.4 METs. The baseline ECG demonstrated sinus rhythm. The peak exercise ECG demonstrated ST depressions in inferior and lateral leads suggestive of ischemia. PACs noted pretest. The functional capacity was considered very good. There was no complaint of chest discomfort during exercise or recovery. The examination was discontinued secondary to knee discomfort and dyspnea. The patient was injected with 11.1 mCi of technetium 99m Cardiolite and subsequently rest SPECT Cardiolite nuclear imaging was obtained in the horizontal long, vertical long, and short axis views. Post-exercise, the patient was injected with 33.3 mCi of technetium 99m Cardiolite and subsequently stress SPECT Cardiolite nuclear imaging was obtained in the horizontal long, vertical long, and short axis views. A gated Cardiolite study at peak stress was obtained. Rest and stress SPECT Cardiolite nuclear imaging status post realignment, normalization, and attenuation correction, demonstrates the appearance of relative uniform tracer uptake and myocardial perfusion appearing within normal limits. There is end systolic thickening and brightening. The gated Cardiolite study demonstrates myocardial thickening and inward wall motion. The reported LVEF is 61%. Impression: 1. Technically adequate (percent predicted maximal heart rate greater than 85%) exercise tolerance test 2. Peak exercise ECG with ST depressions in inferior and lateral leads suggestive of ischemia 3. No significant cardiac dysrhythmias noted 4. Rest and stress SPECT Cardiolite nuclear imaging demonstrate relative uniform tracer uptake and myocardial perfusion appearing within normal limits. 5. The gated Cardiolite study reports an LVEF of 61%. This note was generated with [employer] software. It may contain incorrect words, spelling, and punctuation that were not noted in checking the note before signing.
== END | disposition home or self-care (01) ==
PROVIDERS: PCP Family Medicine; Referring Provider Internal Medicine Cardiovascular Disease; Visit Provider Internal Medicine Cardiovascular Disease
DX: R94.31 Abnormal electrocardiogram [ECG] [EKG] (principal); I25.10 Atherosclerotic heart disease of native coronary artery without angina pectoris; I77.810 Thoracic aortic ectasia; I10 Essential (primary) hypertension; R93.1 Abnormal findings on diagnostic imaging of heart and coronary circulation
CPT/HCPCS: 78452; 93017; 93306; A9500; A4216

== ENCOUNTER → 2024-05-18 | Outpatient (CLI) | payer MEDICARE, SELFPAY ==
--- NOTE | 2024-05-18 08:12 | CT_ITS ---
PROCEDURE: EXTREMITY LOWER WITHOUT CONTRA REASON FOR EXAM: Osteoarthritis. TECHNIQUE: Noncontrasted CT of the left hip, left knee, and left ankle, with sagittal and coronal reconstructed images. COMPARISON: None provided. FINDINGS: Moderate to moderately severe arterial calcification is seen. Minimal degenerative changes are seen of the visualized left sacroiliac joint. The left hip joint demonstrates mild degenerative changes, most prominent medially and posteriorly, and with associated significant joint narrowing. No evidence of femoral head osteonecrosis. An area of calcification, probably representing an enostosis, is seen medial proximal left tibia. The left knee demonstrates overall moderate degenerative changes, with moderately severe medial joint narrowing, at least moderate lateral joint narrowing, and moderate to moderately severe patellofemoral joint narrowing. No significant knee joint effusion is seen. Limited imaging of the ankle shows mild degenerative changes, most medially.. No acute osseous process is seen. CT/Extremity Lower without Contra IMPRESSION: Left lower extremity degenerative changes as described. One or more dose reduction techniques were used (e.g., Automated exposure contr ol, adjustment of the mA and/or kV according to patient size, use of iterative reconstruction technique). Reading Location: [id number]
--- NOTE | 2024-05-18 08:13 | EKG12_ITS ---
Test Reason : PRE OOP Blood Pressure : */* mmHG Vent. Rate : 64 BPM Atrial Rate : 64 BPM P-R Int : 150 ms QRS Dur : 88 ms QT Int : 414 ms P-R-T Axes : 48 62 64 degrees QTcB Int : 427 ms Sinus rhythm with Premature atrial complexes Otherwise normal ECG Confirmed by DEEPAK LUJAN, ARIADNA ([id number]), graphics editor TAN MICHEL ([id number]) on 05/18/2024 1:13:31 PM Referred By: Ta Whitfield Confirmed By: ARIADNA SOTELO MD
[2024-05-18 09:06] LABS: Absolute Lymphocyte Count 1.02 X10^3/uL (0.83-4.51); Basophil# 0.02 X10^3/uL; Basophil% 0.4 % (0-1); Eosinophil# 0.08 X10^3/uL; Eosinophils% 1.7 % (0-5); Hematocrit 38.6 % (40-54); Hemoglobin 13.1 g/dL (13.0-16.5); Lymphocyte # 1.02 X10^3/ul (0.83-4.51); Lymphocyte % 21.6 % (19-41); Mean Corp Hgb Conc 33.9 g/dL (32-36); Mean Corpuscular Hgb 33.2 pg (27.0-32.0); Monocyte# 0.55 X10^3/uL; Monocyte% 11.6 % (0-10); NRBC Flagged by Analyzer 0 % (0-5); Neutrophil # 3.04 X10^3/uL (2.7-7.7); Neutrophil % 64.3 % (47-70); Platelet Count 218 K/mm3 (150-450); RBC Distribution Width CV 13.2 % (11.6-14.6); RBC Distribution Width SD 47.2 fl (35.1-43.9); Red Blood Count 3.94 M/mm3 (4.6-6.2); White Blood Count 4.7 K/mm3 (4.4-11.0)
[2024-05-18 09:34] LABS: ALB/GLOB Ratio 1.3 RATIO (0.9-2.4); AST(SGOT) 30 U/L (15-37); Alanine Aminotransfer ALT/SGPT 41 U/L (16-61); Albumin, Serum 4.1 g/dL (3.2-5.0); Alkaline Phosphatase 50 U/L (45-117); Anion Gap 6 (5-15); BUN 30 mg/dL (7-18); BUN/Creat Ratio 21.3 RATIO (10-20); Calcium,Total 9.3 mg/dL (8.5-10.1); Chloride 105 mmol/L (98-107); Creatinine, Serum 1.41 mg/dL (0.70-1.30); EST Glomerular Filtration Rate 53 mL/min (>60); Est Glom Filt Rate - Afr Amer 64 mL/min (>60); Globulin 3.1 g/dL (2.2-4.2); Glucose 116 mg/dL (74-106); Potassium 4.8 mmol/L (3.5-5.1); Protein, Total 7.2 g/dL (6.4-8.2); Sodium Level 139 mmol/L (136-145)
== END | disposition home or self-care (01) ==
LOC: CT 08:01
PROVIDERS: PCP Family Medicine; Referring Provider Specialist; Visit Provider Specialist
DX: Z01.818 Encounter for other preprocedural examination (principal); M17.12 Unilateral primary osteoarthritis, left knee; M21.162 Varus deformity, not elsewhere classified, left knee
CPT/HCPCS: 36415; 73700; 80053; 85025; 93005

== ENCOUNTER 2024-06-10 22:47 | Inpatient (IN) | payer MEDICARE, SELFPAY ==
[2024-06-10 22:48] VITALS: BP 151/84; PULSE 110; RESP 19; TEMP 36.6; O2SAT 100; BMI 26.2
[2024-06-10] MEDS: Ondansetron 4 MG/2 ML Vial IV (22:53)
--- NOTE | 2024-06-10 23:26 | RAD_ITS ---
PROCEDURE: Abdomen radiographs REASON FOR EXAM: Pain, constipation TECHNIQUE: Two views of the abdomen COMPARISON: No recent priors FINDINGS: See impression RAD/Abdomen Single View (Portable) IMPRESSION: Mild gaseous distention of the transverse colon. No definite evidence of obstr uction. No suspicious intra-abdominal calcifications. Lung bases are relatively clear. Degenerative changes of the spine with dextroscoliosis. Reading Location: [facility]
--- NOTE | 2024-06-10 23:26 | EKG12_ITS ---
Test Reason : DYSRHYTHMIA Blood Pressure : */* mmHG Vent. Rate : 82 BPM Atrial Rate : 82 BPM P-R Int : 138 ms QRS Dur : 84 ms QT Int : 350 ms P-R-T Axes : 48 65 66 degrees QTcB Int : 408 ms Normal sinus rhythm Normal ECG Confirmed by Tad Martin ([id number]), restaurant expeditor TAN MICHEL ([id number]) on 06/12/2024 10:22:00 AM Referred By: Confirmed By: Tad Martin
[2024-06-10 23:30] VITALS: BP 97/55; PULSE 91; RESP 22; O2SAT 94
[2024-06-10 23:45] VITALS: BP 106/61; PULSE 81; RESP 23; O2SAT 94
--- NOTE | 2024-06-10 23:59 | RAD_ITS ---
PROCEDURE: Chest radiograph REASON FOR EXAM: Syncope TECHNIQUE: Frontal view of the chest COMPARISON: None. FINDINGS: Cardiomediastinal silhouette is within normal limits. Lungs are clear. No sizable pneumothorax. RAD/Chest 1 View (Portable) IMPRESSION: No acute airspace abnormality. Reading Location: [facility]
[2024-06-11] VITALS (51 sets, daily range): BP systolic 70–141; BP diastolic 42–89; PULSE 80–105; RESP 14–23; TEMP 36.2–37.6; O2SAT 92–100; BMI 26.4; BMI 25.6
[2024-06-11] MEDS: proCHLORPERazine 10 MG/2 ML Vial 5 MG IV (00:02)
[2024-06-11] MEDS: 0.9% Normal Saline (500mL Bag) 500 ML 999 ML IV (00:13)
[2024-06-11 00:18] LABS: Absolute Lymphocyte Count 0.55 X10^3/uL (0.83-4.51); Absolute Neutrophil Count 8.5 X10^3/uL (2.0-7.7); Basophil# 0.03 X10^3/uL; Basophil% 0.3 % (0-1); Eosinophil# 0.02 X10^3/uL; Eosinophils% 0.2 % (0-5); Hematocrit 38.5 % (40-54); Hemoglobin 12.6 g/dL (13.0-16.5); Lymphocyte # 0.55 X10^3/ul (0.83-4.51); Lymphocyte % 5.9 % (19-41); Mean Corp Hgb Conc 32.7 g/dL (32-36); Mean Corpuscular Hgb 33.2 pg (27.0-32.0); Mean Corpuscular Volume 101.3 fL (80-94); Mean Platelet Vol. 11.4 fl (6.2-12.0); Monocyte# 0.21 X10^3/uL; Monocyte% 2.3 % (0-10); NRBC Flagged by Analyzer 0 % (0-5); Neutrophil # 8.48 X10^3/uL (2.7-7.7); Neutrophil % 91.1 % (47-70); POSITIVE DIFFERENTIAL YES; Platelet Count 202 K/mm3 (150-450); RBC Distribution Width SD 48.2 fl (35.1-43.9); White Blood Count 9.3 K/mm3 (4.4-11.0)
[2024-06-11 00:43] LABS: AST(SGOT) 53 U/L (15-37); Alanine Aminotransfer ALT/SGPT 37 U/L (16-61); Albumin, Serum 3.4 g/dL (3.2-5.0); Alkaline Phosphatase 54 U/L (45-117); Anion Gap 12 (5-15); BUN 31 mg/dL (7-18); BUN/Creat Ratio 14.4 RATIO (10-20); Bilirubin, Direct 0.69 mg/dL (0.00-0.30); Calcium,Total 9.8 mg/dL (8.5-10.1); Chloride 98 mmol/L (98-107); Creatinine, Serum 2.15 mg/dL (0.70-1.30); EST Glomerular Filtration Rate 33 mL/min (>60); Est Glom Filt Rate - Afr Amer 39 mL/min (>60); Estimated Creatinine Clearance 33.95 ml/min; Globulin 3.6 g/dL (2.2-4.2); Glucose 149 mg/dL (74-106); Lipase 49 U/L (73-393); Magnesium 3.2 mg/dL (1.6-2.6); Potassium 5.4 mmol/L (3.5-5.1); Sodium Level 131 mmol/L (136-145)
[2024-06-11] MEDS: 0.9% Normal Saline (1000mL) 1,000 ML 999 ML IV ×2 (00:50)
--- NOTE | 2024-06-11 01:03 | CT_ITS ---
PROCEDURE: ABDOMEN/PELVIS WITHOUT CONT REASON FOR EXAM: Abdominal pain with elevated bilirubin TECHNIQUE: Abdomen and pelvis CT without intravenous contrast. COMPARISON: 08/26/2017. FINDINGS: Lung bases: Mild dependent atelectasis and scarring Hernia: Mild hiatal hernia Liver: Mild lobulated liver. Gallbladder: Unremarkable. Spleen: Normal size. Pancreas: Normal size without evidence of mass surrounding inflammation or ductal dilation. Adrenals: Unremarkable. Kidneys: Normal renal sizes. No hydronephrosis. Bladder: Unremarkable. Reproductive Organs: Unremarkable. Bowel: Significant amount of stool noted throughout the colon. Appendix: Normal. Lymph nodes: No suspicious lymph node enlargement. Vasculature: Mild diffuse atherosclerotic calcifications are noted. 4. Moderate degenerative changes of the thoracic spine Peritoneum / Retroperitoneum: Mild perihepatic ascites. No free air Bones: Degenerative changes of the spine. CT/Abdomen/Pelvis without Cont IMPRESSION: 1. Cirrhosis with mild perihepatic ascites 2. Significant amount of stool noted throughout the colon. Correlate with con stipation. 3. Sigmoid diverticulosis One or more dose reduction techniques were used (e.g., Automated exposure contr ol, adjustment of the mA and/or kV according to patient size, use of iterative reconstruction technique). Reading Location: [facility]
[2024-06-11 02:53] LABS: Procalcitonin 2.51 ng/mL (0.00-0.09)
[2024-06-11 02:56] LABS: Lactic Acid 2.7 mmol/L (0.4-1.9)
--- NOTE | 2024-06-11 03:08 | PCM.HP.STD ---
HPI - General General Date of Admission: 06/11/24 Date of Service: 06/11/24 Chief Complaint: Syncopal event HPI Narrative The patient is a 68 y/o M w/ PMHx: Chew tobacco use, CKD stage III unclear subtype per previous GFR trending, HTN, HLD, CAD with markedly elevated coronary calcium scoring who presents to the [facility] ED on 06/11/24 with history of recent left total knee replacement 06/08/2024 with no bowel movement since his intervention with significant abdominal discomfort resulting with eventual onset nausea and emesis with episodes of lightheadedness and dizziness especially with activity with episode the day prior 06/09/2024 with near syncopal events prompting EMS call but upon arrival he had seemed improved and deferred being evaluated however on 06/10/2024 patient had recurrent event and at that time had a complete syncopal event with no trauma but did shortly lose consciousness with again lightheadedness, dizziness prompting family to bring him in for evaluation. does report that his left lower extremity seems much larger over the last couple days since operative intervention. Patient and deny any specific bleeding or drainage from the knee. Workup in the ED included T98, heart rate 110, BP 151/84, respiratory rate 19, 100% room air--> repeat vital signs with heart rate 91, BP dropping to 70/45 and then improving with intervention to 101/47, respiratory rate 17, 96% room air, CBC with WBC 9.3, he 1 12.6, MCV 101.3, platelet 202 with left shift and lymphopenia, CMP with sodium 131, potassium 5.4 but noted to be moderately hemolyzed thus likely falsely elevated, lactic acid 2.7, BUN/currently 1/2.15, GFR 33, glucose 149, T. bili 2.60, D bili 0.69, AST/ALT 53/37, alk phos 54, lipase 49, magnesium 3.2, procalcitonin 2.51, chest x-ray with no acute cardiopulmonary findings, KUB with mild gaseous distention of the transverse colon with no obvious obstruction, CT abdomen pelvis without contrast with noted cirrhosis with mild perihepatic ascites but in the read it self and notes only mild lobulated liver, significant mount of stool throughout the colon with evidence of constipation, sigmoid diverticulosis. In the ED patient ministered 2 L normal saline, Zofran 4 mg IV x 1, prochlorperazine 5 mg IV x 1 and eventually initiated on norepinephrine. Given elevated procalcitonin, lactic acidosis and eventual evidence of shock, undifferentiated patient administered IV vancomycin and IV Zosyn with blood culture x 2 obtained. Given significant hypotension initiation on norepinephrine hospitalist directed central line placement performed in the emergency room (see separate note). [facility], [facility] Medical History Hyperlipidemia Amputation of toe of right foot Internal hemorrhoids without mention of complication Diverticulosis of colon (without mention of hemorrhage) Conrad's cyst Carpal tunnel syndrome Lower back injury Hypertension Home Medications ?Medication ?Instructions ?Recorded ?Last Taken ?Type lisinopril 20 mg tablet 20 mg PO QDAY 02/23/24 Unknown History multivitamin with minerals 1 cap PO QDAY 02/23/24 Unknown History pantoprazole 40 mg tablet,delayed 40 mg PO QDAY 02/23/24 Unknown History release aspirin 81 mg tablet,delayed 81 mg PO QDAY #90 tabs 02/29/24 Unknown Rx release (Adult Aspirin Regimen) cholecalciferol (vitamin D3) 25 25 mcg PO QDAY 02/29/24 Unknown History mcg (1,000 unit) capsule rosuvastatin 5 mg tablet 5 mg PO QDAY 02/29/24 Unknown History carvedilol 6.25 mg tablet 6.25 mg PO BID #180 tabs 04/04/24 Unknown Rx Allergy/AdvReac Type Severity Reaction Status Date / Time terbinafine Allergy Severe Rash Verified 06/10/24 22:48 Family History Mother Congestive heart failure CVA (cerebral vascular accident) Father CAD (coronary artery disease) Brother Myocardial infarction Diabetes Obesity Kidney failure Obstructive sleep apnea Surgical History History of cataract extraction with lens replacement History of hand surgery History of repair of rotator cuff Status post surgical removal of nail matrix of toe of right foot History of lumbar laminectomy Hx of excision of lamina of cervical vertebra for decompression of spinal cord Hx of left knee surgery H/O neck surgery Social History household members: spouse Smoking Status: Never smoker Smokeless tobacco user: chewing tobacco and other Electronic Cigarette Use: not used alcohol intake: current alcohol intake frequency: a few times a week Alcohol type: beer details: (2) CANS OF BEER (12OZ) PER WEEK ROS ROS Narrative Admission Review of Systems: CONSTITUTIONAL: No weight loss, fever, chills, + weakness or fatigue. HEENT: LH/dizziness, positional. Eyes: No visual loss, blurred vision, double vision or yellow sclerae. Ears, Nose, Throat: No hearing loss, sneezing, congestion, runny nose or sore throat. SKIN: No rash or itching, lesions, wounds except + status post left knee replacement with various ecchymoses, swelling progressively worsening. CARDIOVASCULAR: + Syncopal event. No chest pain, chest pressure or chest discomfort, palpitations, edema, orthopnea. RESPIRATORY: No shortness of breath, cough or sputum, wheezing, hemoptysis. GASTROINTESTINAL: + anorexia, nausea, vomiting, constipation/lack of bowel movement, abdominal pain, distention. No diarrhea, melena, BRBPR. GENITOURINARY: No dysuria, frequency, urgency or retention. NEUROLOGICAL: + Syncopal event, LH/Dizziness, positional. No headache, paralysis, ataxia, numbness or tingling in the extremities, focal weakness, change in bowel or bladder control, seizure. MUSCULOSKELETAL: + muscle, back pain, joint pain or stiffness. HEMATOLOGIC: + Evidence of anemia. No recent history of easy bleeding/bruising. LYMPHATICS: No enlarged nodes. No history of splenectomy. PSYCHIATRIC: No history of depression or anxiety. ENDOCRINOLOGIC: No reports of sweating, cold or heat intolerance. No polyuria or polydipsia. ALLERGIES: No history of asthma, hives, eczema or rhinitis. Vital Signs Vital Signs Vital Signs: 06/10/24 22:48 06/10/24 23:25 06/11/24 00:48 Temperature 98 F Temperature Source Oral Pulse Rate 110 H 91 Respiratory Rate 19 H 17 Respiratory Effort Normal Respiratory Pattern Normal Blood Pressure 151/84 H 70/45 L Blood Pressure Mean 106 53 Pulse Ox 100 96 Oxygen Delivery Method Room Air Room Air 06/11/24 02:00 Temperature Temperature Source Pulse Rate 86 Respiratory Rate 14 Respiratory Effort Respiratory Pattern Blood Pressure 101/47 L Blood Pressure Mean 65 Pulse Ox 95 Oxygen Delivery Method Room Air Weight Weight: 182 lb 12.211 oz Body Mass Index (BMI) 26.2 Physical Exam Narrative Physical Examination: General: Awake, alert, oriented x 3 and cooperative, laying in the ED bed, ill-appearing, fatigued. Skin: Normal color, normal turgor, no icterus, no cyanosis except notable left lower extremity ecchymoses, significant edema to the knee, warm to touch. HEENT: AT/NC, EOMI, PERRLA, dry MM, no carotid bruits or JVD noted. Lungs: Mildly diminished, greater bases, poor effort, no rales, ronchi or wheezing. Heart: Regular rate and rhythm; no gallop, rub audible. Abdomen: Soft, severely diffusely tender to palpation with mild distention, significantly diminished bowel sounds, difficult to appreciate HSM given pain with any palpation of the abdomen. Extremities: No cyanosis, no clubbing, significant left lower extremity notable edema especially compared to the right lower extremity, dressing in place over the incision with various ecchymotic change, no drainage. Neurological: Patient awake, alert, oriented as noted, cognitive function intact; pupils equally reactive to light and accommodation, cranial nerves grossly normal, moving all 4 extremities except extremely limited left lower extremity given acute presentation, strength severely globally decreased. Psychiatric: Affect appears flat, fatigued, ill-appearing, no acute evidence of depressive or anxiety feelings. Results Lab / Micro Data 06/11/24 00:02 06/11/24 00:02 Labs: Laboratory Results - last 24 hr 06/11/24 00:02: WBC 9.3, RBC 3.80 L, Hgb 12.6 L, Hct 38.5 L, MCV 101.3 H, MCH 33.2 H, MCHC 32.7, RDW Std Deviation 48.2 H, RDW Coeff of Tangela 13.0, Plt Count 202, MPV 11.4, Immature Gran % (Auto) 0.200, Neut % (Auto) 91.1 H, Lymph % (Auto) 5.9 L, [place] % (Auto) 2.3, Eos % (Auto) 0.2, Baso % (Auto) 0.3, Absolute Neuts (auto) 8.5 H, Absolute Lymphs (auto) 0.55 L, Nucleated RBC % 0, Sodium 131 L, Potassium 5.4 H, Chloride 98, Carbon Dioxide 21.0, Anion Gap 12, BUN 31 H, Creatinine 2.15 H, Estim Creat Clear Calc 33.95, Est GFR (MDRD) Af Amer 39 L, Est GFR (MDRD) Non-Af 33 L, BUN/Creatinine Ratio 14.4, Glucose 149 H, Calcium 9.8, Magnesium 3.2 H, Total Bilirubin 2.60 H, Direct Bilirubin 0.69 H, AST 53 H, ALT 37, Alkaline Phosphatase 54, Total Protein 7.0, Albumin 3.4, Globulin 3.6, Lipase 49 L 06/11/24 01:57: Lactic Acid 2.7 H*, Procalcitonin 2.51 H Imaging Radiology Impression KUB X-Ray 06/10/24 23:26 IMPRESSION: Mild gaseous distention of the transverse colon. No definite evidence of obstruction. No suspicious intra-abdominal calcifications. Lung bases are relatively clear. Degenerative changes of the spine with dextroscoliosis. Reading Location: [facility] Chest X-Ray 06/10/24 23:59 IMPRESSION: No acute airspace abnormality. Reading Location: [facility] Assessment & Plan Assessment/Plan (1) Septic shock: PLAN: Plan The patient is a 68 y/o M w/ PMHx: Chew tobacco use, CKD stage III unclear subtype per previous GFR trending, HTN, HLD, CAD with markedly elevated coronary calcium scoring who presents to the [facility] ED on 06/11/24 with history of recent left total knee replacement 06/08/2024 with no bowel movement since his intervention with significant abdominal discomfort resulting with eventual onset nausea and emesis with episodes of lightheadedness and dizziness especially with activity with episode the day prior 06/09/2024 with near syncopal events prompting EMS call but upon arrival he had seemed improved and deferred being evaluated however on 06/10/2024 patient had recurrent event and at that time had a complete syncopal event with no trauma but did shortly lose consciousness with again lightheadedness, dizziness prompting family to bring him in for evaluation. #1. Acute shock, undifferentiated, suspected Septic/infectious etiology, possibly left knee given recent joint replacement with sepsis-induced organ dysfunction/tissue hypoperfusion and sepsis induced hypotension despite adequate fluid administration: Will admit patient to the ICU, maintain on cardiac monitoring, maintain on IV abx regimen w/ cefepime and vancomycin pending Orthopedic surgery evaluation, Bld Cx pending per ED, requested UA/UCx also, continued on NEP, trend LA per facility protocol, NPO status given #4 concurrently aside from medication, duplex requested as noted with heparin drip in interim. CRP/ESR requested. PT/OT/CM consulted. #2. Acute kidney injury on CKD stage III unclear subtype per previous GFR trending: Suspect shock related as well as secondary to GI losses, acute presentation as noted #1. Admission BUN/Cr 31/2.15, GFR 33, prior baseline creatinine noted to be 1.3-1.4, most recently 05/18/2024 creatinine 1.41. Will hydrate, hold nephrotoxic medications and repeat chemistry in AM. If no improvement would plan FeNa assessment. #3. Syncopal Event: Suspect related to #1 as well as #4 with GI losses, dehydration, EKG in ED w/ sinus rhythm without evidence of acute ischemia, CXR w/ no acute cardiopulmonary findings, initial trop normal. Will maintain on a monitored bed to assure no acute myocardial infarction with serial cardiac enzymes and EKGs. Will maintain on fall precautions. #4. Abdominal pain, nausea, emesis secondary to significant postoperative constipation with CT imaging with questionable mildly lobulated liver: Will maintain on IVFs, initiate aggressive bowel regimen with oral GoLytely and trial of enemas, strict I&Os, IV pain/anti-emetics PRN, serial KUB as needed to montior bowel function, maintain on IV PPI, maintain NPO on bowel rest. #5. Left lower extremity significant edema status post left total knee replacement: Notable concern given significant size, pain not more severe but definitely more swollen, will place on heparin drip in case of operative interventions needed in the knee pending duplex ultrasound. #6. Acute macrocytic anemia, possibly related with mild blood loss given recent operative intervention: Admission hemoglobin 12.6, MCV 101.3, previous hemoglobin noted 05/18/2019 513.1 this not significantly different, will obtain iron panel, ferritin, vitamin B12 and folic acid to be cautious and trend CBC. #7. Hyperglycemia, possibly stress response: Admission glucose 149, no diabetic history, will obtain hemoglobin A1c to be cautious. #8. Hyperbilirubinemia, mild transaminitis with lobated liver noted: Suspect shock related, admission total bili 2.60, D bili 0.69, AST/LT 53/37, alk phos 54, not previously elevated, potentially related with acute presentation #1, #2 is noted, will continue treatment as noted and repeat CMP in AM. If persistent will further investigate. #9. CAD: Patient with outpatient coronary calcium scoring which is markedly elevated, noted follow-up with cardiology 02/29/2024 with EKG at that time with nonspecific ST changes, recommendation given asymptomatic to obtain stress test and echocardiogram which were performed, 03/13/2024 stress testing unremarkable per review of exercise test report but no obvious final impression noted, echocardiogram 03/13/2024 with EF 60%, mild MVI, mild TBI, mildly dilated aortic root with negative bubble contrast study. Will continue baby aspirin, statin, holding hypertensive regimen as noted. #10. Hypertension: Holding HTN regimen given #1, add back once clinically appropriate. #11. Hyperlipidemia: Continue patient on statin therapy. #12. Chew tobacco: Encouraged tobacco cessation, nicotine replacement if necessary. #13. DVT prophylaxis: Heparin drip pending LLE DVT. #14. CODE status: Patient HCPTC is his who is present and living will is currently in place. Discussed CODE status at length including difference between FULL code, DNR-CCA and DNR-CC status. Following discussions about the differences in these status, requested Full Code status. Advanced Care Planning Face to Face Time: 16 minutes. Charges/Coding Visit Charges Inpatient E&M: 79908 Init Hosp L3 Procedures Hospitalists Procedures: 60423 Advncd Care Plan 30 Min
[2024-06-11] MEDS: Norepinephrine 8 MG in 0.9% Normal Saline (250mL Bag) 242 ML 9.4 MG CONT INF ×2 (03:18→06:30)
[2024-06-11] MEDS: Piperacil/Tazobactam 3.375 GM in 0.9% Normal Saline (50mL MB+) 50 ML IV (04:08)
--- NOTE | 2024-06-11 04:08 | EX.ED.DYSGE1 ---
HPI History of Present Illness Chief Complaint: Syncope Informant: patient and family Narrative Narrative: Patient is a 68-year-old male with past medical history of hypertension and hyperlipidemia. Patient states that he had a left knee replacement 2 days ago. He states he had the surgery stayed in PACU for a few hours and was discharged home. He states he has been taking oxycodone for pain control and has been constipated. He states that on Wednesday evening he got up to use the bathroom had a bout of lightheadedness/near syncope and his called EMS. Reportedly he was awake and alert when they arrived and vitals are stable and he did not want to be transferred to the hospital. However today he stood up to use the bathroom once again and this time had a true syncopal event and then began with bouts of nausea and vomiting and therefore EMS was called and he was brought to the hospital for further evaluation. [facility] Medical History Hyperlipidemia Amputation of toe of right foot Internal hemorrhoids without mention of complication Diverticulosis of colon (without mention of hemorrhage) Conrad's cyst Carpal tunnel syndrome Lower back injury Hypertension Home Medications ?Medication ?Instructions ?Recorded ?Last Taken ?Type lisinopril 20 mg tablet 20 mg PO QDAY 02/23/24 Unknown History multivitamin with minerals 1 cap PO QDAY 02/23/24 Unknown History pantoprazole 40 mg tablet,delayed 40 mg PO QDAY 02/23/24 Unknown History release aspirin 81 mg tablet,delayed 81 mg PO QDAY #90 tabs 02/29/24 Unknown Rx release (Adult Aspirin Regimen) cholecalciferol (vitamin D3) 25 25 mcg PO QDAY 02/29/24 Unknown History mcg (1,000 unit) capsule rosuvastatin 5 mg tablet 5 mg PO QDAY 02/29/24 Unknown History carvedilol 6.25 mg tablet 6.25 mg PO BID #180 tabs 04/04/24 Unknown Rx Allergy/AdvReac Type Severity Reaction Status Date / Time terbinafine Allergy Severe Rash Verified 06/10/24 22:48 Family History Mother Congestive heart failure CVA (cerebral vascular accident) Father CAD (coronary artery disease) Brother Myocardial infarction Diabetes Obesity Kidney failure Obstructive sleep apnea Surgical History History of cataract extraction with lens replacement History of hand surgery History of repair of rotator cuff Status post surgical removal of nail matrix of toe of right foot History of lumbar laminectomy Hx of excision of lamina of cervical vertebra for decompression of spinal cord Hx of left knee surgery H/O neck surgery Social History household members: spouse Smoking Status: Never smoker Smokeless tobacco user: chewing tobacco and other Electronic Cigarette Use: not used alcohol intake: current alcohol intake frequency: a few times a week Alcohol type: beer details: (2) CANS OF BEER (12OZ) PER WEEK ROS ROS ED Constitutional Constitutional ED: Denies chills or fever(s) Eyes Eyes: Denies change in vision ENT ENT ED: Denies sore throat Cardiovascular Cardiovascular: Reports racing heartbeat and other Details: Positive syncope ; Denies chest pain Respiratory/Chest Respiratory/Chest: Denies cough or dyspnea Gastrointestinal Gastrointestinal: Reports abdominal pain, constipation, nausea and vomiting; Denies diarrhea Genitourinary Genitourinary ED: Denies dysuria Musculoskeletal Musculoskeletal: Reports other Details: Positive left leg/knee pain Integumentary Reports other Details: Positive swelling/bruising left knee Neurologic Neurologic: Reports weakness; Denies headache(s) or paresthesias Hematologic/Lymphatic Hematologic/Lymphatic: Denies easy bleeding or easy bruising EXAM Physical Exam Const Vital Signs: 06/10/24 22:48 06/10/24 23:25 06/10/24 23:30 Temperature 98 F Temperature Source Oral Pulse Rate 110 H 91 Respiratory Rate 19 H 22 H Respiratory Effort Normal Respiratory Pattern Normal Blood Pressure 151/84 H 97/55 L Blood Pressure Mean 106 69 Pulse Ox 100 94 Oxygen Delivery Method Room Air 06/10/24 23:45 06/11/24 00:48 06/11/24 00:55 Temperature Temperature Source Pulse Rate 81 91 93 Respiratory Rate 23 H 17 23 H Respiratory Effort Respiratory Pattern Blood Pressure 106/61 70/45 L 75/46 L Blood Pressure Mean 76 53 55 Pulse Ox 94 96 96 Oxygen Delivery Method Room Air 06/11/24 01:00 06/11/24 01:11 06/11/24 01:49 Temperature Temperature Source Pulse Rate 88 88 88 Respiratory Rate 23 H 18 18 Respiratory Effort Respiratory Pattern Blood Pressure 78/46 L 92/51 L 78/42 L Blood Pressure Mean 56 64 54 Pulse Ox 92 94 99 Oxygen Delivery Method 06/11/24 02:00 06/11/24 02:00 06/11/24 03:00 Temperature 98.1 F 98.6 F Temperature Source Oral Oral Pulse Rate 86 88 91 Respiratory Rate 14 21 H 19 H Respiratory Effort Respiratory Pattern Blood Pressure 101/47 L 101/47 L 84/50 L Blood Pressure Mean 65 65 61 Pulse Ox 95 95 95 Oxygen Delivery Method Room Air Room Air Room Air 06/11/24 03:15 06/11/24 03:30 06/11/24 03:45 Temperature 98.4 F 98.6 F 98.1 F Temperature Source Oral Temporal Oral Pulse Rate 94 95 80 Respiratory Rate 20 H 21 H 23 H Respiratory Effort Respiratory Pattern Blood Pressure 86/57 L 92/53 L 103/56 L Blood Pressure Mean 66 66 71 Pulse Ox 99 98 97 Oxygen Delivery Method Room Air 06/11/24 04:00 Temperature Temperature Source Pulse Rate 101 H Respiratory Rate 14 Respiratory Effort Respiratory Pattern Blood Pressure 100/55 L Blood Pressure Mean 70 Pulse Ox 98 Oxygen Delivery Method Room Air Positive well nourished and well developed General Appearance ED: well developed and pallor HEENT Reports dry mucous membranes HEENT Narrative: No tongue or lip swelling no oral lesions no airway edema or compromise Mucous membranes are dry and tacky There is no sign of infection noted in the posterior pharynx Mouth ED: Yes dry mucous membranes Mouth: dry mucous membranes Eyes PERRL and EOMs intact bilaterally Eyes Narrative: Positive subconjunctival pallor noted General Eye ED: Yes pale conjunctiva; Negative for scleral icterus Neck supple and no JVD Neck Narrative: No nuchal rigidity or meningeal signs Resp normal respiratory effort and clear to auscultation bilaterally Resp Narrative: Breath sounds are slight diminished throughout but overall clear to auscultation without signs of distress Cardio regular rhythm Rate: tachycardic and other Other Details: Tachycardic rate with regular rhythm Radial and carotid pulses are equal and symmetric GI non-distended and no masses GI Narrative: Abdomen is soft and nondistended with hypoactive bowel sounds However there is diffuse pain with palpation but no voluntary guarding or rigidity or pulsatile mass. Auscultation: hypoactive bowel sounds Palpation: soft Extremity Extremity Narrative: Left lower extremity is neurovascularly intact. There is a postoperative wound to the anterior aspect of the left knee with scant amount of dried blood. There is diffuse soft tissue swelling and ecchymosis and mild asymmetric warmth most consistent with hematoma as patient is only 2 days postop. No obvious bony deformity No lymphangitic streaking or crepitance noted Neuro oriented x3, CN's II-XII intact bilaterally and no sensory deficits noted Sensorium / Orientation: alert Psych mental status grossly normal Skin No skin turgor normal Skin Narrative: Skin turgor is increased Postsurgical changes to the left knee as documented above Diffuse pallor is noted but capillary refill remains less than 3 seconds General Skin Exam: pallor MDM MDM MDM Narrative Medical decision making narrative: Patient arrived to the ER tachycardic but afebrile and in no acute respiratory distress. He reported constipation with bouts of nausea and vomiting and then lightheadedness/syncope when trying to stand and use the restroom. History and exam is concerning for acute blood loss anemia versus dehydration versus acute kidney injury versus clinically significant electrolyte abnormality. With his bouts of nausea and vomiting there is also concern this could be pancreatitis versus small bowel obstruction or ileus. Blood work was obtained which shows a stable H&H going against acute blood loss anemia and therefore there is no need for a blood transfusion. The patient's creatinine is elevated at 2.15 which is much above his baseline of roughly 1.2 and this correlates with dehydration and orthostasis as a cause of syncope. He was given a total of 3 L of fluid. Following administration of the fluid his heart rate improved but his blood pressure then began to progress to a hypotensive state. Despite receiving more than 30 mL/kg he remained hypotensive. Secondary to this lactic acid and procalcitonin were ordered and both are elevated indicating potential infectious process as the cause of his symptoms and hypotension indicating shock. Therefore blood cultures were obtained and he was started on vancomycin and Zosyn. With the elevation to his total bilirubin and bouts of nausea and vomiting there is concern this could be biliary colic or acute cholecystitis and therefore noncontrast CT was obtained. This showed no sign of obstruction or obvious intestinal infection. However as the patient has remained hypotensive despite 3 L of normal saline a central line was placed and he was started on vasopressors. After administration of vasopressors the blood pressure improved to approximate 120 systolic. The hospitalist was contacted secondary to concern for septic shock and after evaluating patient she agrees that he needs admitted to the unit for continued evaluation and determination of the source of infection. Please note that the central line was placed by the hospitalist and therefore see her note for procedure placement of the central line. History & Record Review Discussion w/independent historian: Patient and Significant other Lab Data Attestation: I reviewed the patient's lab results. Labs: Laboratory Results - last 24 hr 06/11/24 06/11/24 00:02 01:57 WBC 9.3 RBC 3.80 L Hgb 12.6 L Hct 38.5 L MCV 101.3 H MCH 33.2 H MCHC 32.7 RDW Std Deviation 48.2 H RDW Coeff of Tangela 13.0 Plt Count 202 MPV 11.4 Immature Gran % (Auto) 0.200 Neut % (Auto) 91.1 H Lymph % (Auto) 5.9 L [place] % (Auto) 2.3 Eos % (Auto) 0.2 Baso % (Auto) 0.3 Absolute Neuts (auto) 8.5 H Absolute Lymphs (auto) 0.55 L Nucleated RBC % 0 Sodium 131 L Potassium 5.4 H Chloride 98 Carbon Dioxide 21.0 Anion Gap 12 BUN 31 H Creatinine 2.15 H Estim Creat Clear Calc 33.95 Est GFR (MDRD) Af Amer 39 L Est GFR (MDRD) Non-Af 33 L BUN/Creatinine Ratio 14.4 Glucose 149 H Lactic Acid 2.7 H* Calcium 9.8 Magnesium 3.2 H Total Bilirubin 2.60 H Direct Bilirubin 0.69 H AST 53 H ALT 37 Alkaline Phosphatase 54 Total Protein 7.0 Albumin 3.4 Globulin 3.6 Lipase 49 L Procalcitonin 2.51 H Radiography Diagnostic Testing: Clinical Impression(s) from Imaging Studies KUB X-Ray 06/10/24 23:26 IMPRESSION: Mild gaseous distention of the transverse colon. No definite evidence of obstruction. No suspicious intra-abdominal calcifications. Lung bases are relatively clear. Degenerative changes of the spine with dextroscoliosis. Reading Location: [facility] Chest X-Ray 06/10/24 23:59 IMPRESSION: No acute airspace abnormality. Reading Location: [facility] Abdomen/Pelvis CT 06/11/24 01:03 IMPRESSION: 1. Cirrhosis with mild perihepatic ascites 2. Significant amount of stool noted throughout the colon. Correlate with constipation. 3. Sigmoid diverticulosis One or more dose reduction techniques were used (e.g., Automated exposure control, adjustment of the mA and/or kV according to patient size, use of iterative reconstruction technique). Reading [facility] Chest x-ray as interpreted by the emergency medicine physician reveals no acute infiltrate pneumothorax or pleural effusion KUB as interpreted by the emergency medicine physician reveals mild gaseous distention of the transverse colon without air-fluid levels to suggest obstruction Management Discussion w/another healthcare provider: Hospitalist Critical Care Time Critical Care Time: Yes Critical care time (excluding procedures): Discussing w/Patient &/or Family/Junior Systems Administrator, Discussing w/Consultants and - (Please note critical care time of 33 minutes) Discharge Plan Dx/Rx/DC Orders Clinical Impression: Septic shock, Dehydration, Acute kidney injury, Hyperbilirubinemia Disposition Disposition: Acute Care Hospital [facility] Discharge Date/Time: 06/11/24 05:28
--- NOTE | 2024-06-11 04:38 | RAD_ITS ---
PROCEDURE: LEFT KNEE, TWO VIEWS REASON FOR EXAM: RECENT TOTAL KNEE SURGERY. TECHNIQUE: 2 view(s) of the LEFT knee COMPARISON: None. FINDINGS: No fracture. No suspicious bone lesion. Left total knee arthroplasty in good alignment. Normal alignment. No effusion. Surgical kitty anteriorly. Soft tissue swelling. RAD/Knee 1 or 2 Views IMPRESSION: No acute osseous abnormalities. Status post left total knee arthroplasty. Reading Location: [facility]
--- NOTE | 2024-06-11 04:41 | PN.HOSP_ITS ---
Hospitalist Note Central Line note: Patient with ongoing hypotension despite aggressive IVF administration attempts per discussion with ED physician. Given MAP not maintaining >65, initiated on peripheral norepinephrine following failure of 3 L normal saline to improve blood pressure. Consent obtained for placement of central line. Right neck re gion prepped and draped in standard fashion. US guidance used to obtain access, guidewire threaded without issue, central line catheter placed over guidewire and wire removed w/ cap placed. Lines again drawn and flushed without difficulty. Central line sutured in place. CXR ordered. Procedures Hospitalists Procedures: [id number] Insert Non-tunnel CV Cath
--- NOTE | 2024-06-11 05:00 | RAD_ITS ---
PROCEDURE: CHEST 1 VIEW (PORTABLE) REASON FOR EXAM: Status post central line placement. TECHNIQUE: Frontal view of the chest. COMPARISON: Earlier chest dated 06/11/2024. FINDINGS: A right central venous catheter has been inserted, tip projecting over the cavoatrial junction. Heart and mediastinum are unremarkable. Aorta is atherosclerotic and tortuous Smaller area of consolidation in the left lower lobe. Lungs are otherwise clear. No pleural effusion or pneumothorax. Status post lower cervical spine fusion. Cardiac monitoring leads overlie the chest wall. RAD/Chest 1 View (Portable) IMPRESSION: Interval insertion of a right central venous catheter as detailed above. Developing infiltrate versus nodule in the left lower lobe. Reading Location: [facility]
[2024-06-11] MEDS: Vancomycin HCl 2,000 MG in 0.9% Normal Saline (500mL Bag) 500 ML 250 MG IV (05:20)
--- NOTE | 2024-06-11 05:38 | VDLE_ITS ---
Reason For Study Reason For Study: Left leg pain RIGHT LEFT CFV is compressible, spontaneous, phasic, competent GSV is normal. and demonstrates normal augmentation. CFV is compressible, spontaneous, phasic, competent, Procedure and demonstrates normal augmentation. This is a venous duplex using B-mode, color flow and FV is compressible, spontaneous, phasic, competent spectral Doppler. and demonstrates normal augmentation. Exam performed portable in ICU/CCU. POP V is compressible, spontaneous, phasic, competent A preliminary report was called and/or faxed to and demonstrates normal augmentation. Humberto. T/P Trunk is compressible. PTV is compressible. LT PerV is compressible. VL/Venous Duplex US, Unilateral Interpretation Summary Deep veins of the left lower extremity are patent and compressible segmentally. There is no evidence of left lower extremity deep vein thrombosis. The left great saphenous vein appears patent an d compressible segmentally. Ordering Physician: Stephani Soria Referring Physician: MD Bony Finn Performed By: Juliana Ritter RVT
[2024-06-11 06:00] LABS: Reflex Lactate? Y
[2024-06-11 06:54] LABS: Absolute Lymphocyte Count 0.31 X10^3/uL (0.83-4.51); Absolute Neutrophil Count 5.2 X10^3/uL (2.0-7.7); Basophil# 0.02 X10^3/uL; Basophil% 0.3 % (0-1); Hematocrit 29.3 % (40-54); Hemoglobin 9.8 g/dL (13.0-16.5); Lymphocyte # 0.31 X10^3/ul (0.83-4.51); Lymphocyte % 5.1 % (19-41); Mean Corp Hgb Conc 33.4 g/dL (32-36); Mean Corpuscular Hgb 33.3 pg (27.0-32.0); Mean Corpuscular Volume 99.7 fL (80-94); Mean Platelet Vol. 10.5 fl (6.2-12.0); Monocyte# 0.56 X10^3/uL; Monocyte% 9.2 % (0-10); NRBC Flagged by Analyzer 0 % (0-5); Neutrophil # 5.22 X10^3/uL (2.7-7.7); Neutrophil % 85.2 % (47-70); POSITIVE DIFFERENTIAL YES; POSITIVE MORPHOLOGY YES; Platelet Count 165 K/mm3 (150-450); RBC Distribution Width SD 47.1 fl (35.1-43.9); Red Blood Count 2.94 M/mm3 (4.6-6.2); White Blood Count 6.1 K/mm3 (4.4-11.0)
[2024-06-11 07:03] LABS: Lactic Acid 1.1 mmol/L (0.4-1.9)
[2024-06-11 07:11] LABS: Differential Indicated SCAN CRITERIA MET
[2024-06-11 07:33] LABS: Troponin-I HS 53 pg/mL (3.0-78.0)
[2024-06-11 07:44] LABS: Erythrocyte Sedimentation Rate 12 mm/hr (0-20)
[2024-06-11] MEDS: 0.9% Normal Saline (1000mL) 1,000 ML 100 ML IV (07:47)
[2024-06-11] MEDS: Pantoprazole Sodium 40 MG in 0.9% Normal Saline (100mL MB+) 100 ML 330 MG IV ×2 (07:47→21:51)
[2024-06-11] MEDS: Cefepime HCl 2 GM in 0.9% Normal Saline (100mL MB+) 100 ML IV ×2 (07:48→22:16)
[2024-06-11 08:08] LABS: Bacteria 0 SEEN /hpf (None Seen); Mucous, Urine 0 SEEN /hpf (<or=2+); Squamous Epithelial Cells - UA 0 SEEN /hpf (0-5)
[2024-06-11] MEDS: Aspirin E.C. 81 MG Tablet PO (08:20)
[2024-06-11] MEDS: CHLORHEXIDINE GLUC 2% CLOTH 1 EACH TOWELETTE TOPICAL (08:20)
[2024-06-11 08:21] LABS: Color, Urine Amber (Yellow); Glucose, Dipstick Normal (Normal); Ketone-Dipstick 15 mg/dl (Negative); Leukocyte Esterase-Dipstick 100 /ul (Negative); Nitrite-Dipstick Negative (Negative); Occult Blood-Urine 10 /ul (Negative); Protein-Dipstick 30 mg/dl (Negative); Specific Gravity, Urine 1.015 (1.002-1.030); Urine Clarity Sl. Cloudy (Clear); Urine Urobilinogen 4 mg/dl (Normal)
[2024-06-11 08:34] LABS: Urine Bilirubin Dipstick 3 mg/dL (Negative)
[2024-06-11 08:38] LABS: International Normalized Ratio 1.2; Prothrombin Time (Protime)PT. 15.5 SECONDS (11.7-14.9)
[2024-06-11 08:39] LABS: Partial Thromboplast Time 33.3 Seconds (24.1-36.2)
[2024-06-11 08:40] LABS: Hemoglobin A1c 5.2 % (3.8-5.6)
--- NOTE | 2024-06-11 08:42 | EKG12_ITS ---
Test Reason : Blood Pressure : */* mmHG Vent. Rate : 86 BPM Atrial Rate : 86 BPM P-R Int : 142 ms QRS Dur : 84 ms QT Int : 314 ms P-R-T Axes : 35 26 151 degrees QTcB Int : 375 ms Normal sinus rhythm ST & T wave abnormality, consider anterolateral ischemia Abnormal ECG When compared with ECG of 10-Jun-2024 23:53, MANUAL COMPARISON REQUIRED DATA IS UNCONFIRMED Confirmed by Tad Martin ([id number]), editor managing newspaper TAN MICHEL ([id number]) on 06/12/2024 10:42:42 AM Referred By: STEVEN Confirmed By: Tad Martin
[2024-06-11] MEDS: Heparin Injection (Vial) 5,000 UNIT/ML VIAL 6000 UNIT IV (08:47)
[2024-06-11] MEDS: HEPARIN/D5w 25,000 UNITS 25,000 UNITS/250 ML IV.SOLN. 12 UNITS CONT INF (08:48)
[2024-06-11 08:55] LABS: ALB/GLOB Ratio 0.9 RATIO (0.9-2.4); AST(SGOT) 32 U/L (15-37); Alanine Aminotransfer ALT/SGPT 27 U/L (16-61); Albumin, Serum 2.6 g/dL (3.2-5.0); Alkaline Phosphatase 43 U/L (45-117); Anion Gap 9 (5-15); BUN 37 mg/dL (7-18); BUN/Creat Ratio 17.6 RATIO (10-20); Calcium,Total 8.6 mg/dL (8.5-10.1); Chloride 106 mmol/L (98-107); EST Glomerular Filtration Rate 34 mL/min (>60); Est Glom Filt Rate - Afr Amer 41 mL/min (>60); Estimated Creatinine Clearance 33.67 ml/min; Ferritin 374 ng/mL (26-388); Globulin 2.8 g/dL (2.2-4.2); Glucose 122 mg/dL (74-106); Iron 7 ug/dL (65-175); Iron Binding Capacity,Total 273 ug/dL (250-450); Magnesium 2.7 mg/dL (1.6-2.6); PERCENT IRON SATURATION 2.6 % (15.0-55.0); Phosphorus 4.1 mg/dL (2.5-4.9); Potassium 4.3 mmol/L (3.5-5.1); Protein, Total 5.4 g/dL (6.4-8.2); Sodium Level 134 mmol/L (136-145)
[2024-06-11] MEDS: TITRATION PARAMETER CHANGE 1 EACH IV (08:56)
[2024-06-11 08:57] LABS: Platelet Estimate A (ADEQ)
[2024-06-11 09:19] LABS: Troponin-I HS 44 pg/mL (3.0-78.0)
[2024-06-11 09:54] LABS: Amorphous Sediment 1+ URATE
[2024-06-11 09:55] LABS: Red Blood Cells-Urine 0-5 SEEN /hpf (0-5); White Blood Cells 0-5 SEEN /hpf (0-5)
[2024-06-11 09:56] LABS: Hyaline Cast 0-5 SEEN /lpf (0-5)
[2024-06-11] MEDS: Menthol/Lanolin/Calamine/Znox 113 GM Tube 1 APPLIC TOPICAL ×2 (10:02→20:52)
--- NOTE | 2024-06-11 10:30 | PCM.CONS.GEN ---
Assessment & Plan Assessment/Plan (1) Status post total left knee replacement: PLAN: Plan 1. Status post left robotic assisted total knee arthroplasty POD #3: Surgical date June 08, 2024 2. Pain control: Postoperatively patient has been using Tylenol and oxycodone. 3. DVT prophylaxis: Doppler ultrasound has been ordered but not obtained yet. Awaiting results. If negative orthopedic recommends aspirin 81 mg twice daily for 4 weeks postoperatively. 4. Status post acute blood loss anemia versus dilutional component. Initial labs in the emergency room hemoglobin of 12.6. Preoperative hemoglobin 13.1. Second set of labs this morning showed hemoglobin at 9.8. His vitals are stable and he is asymptomatic. Denies to me any lightheadedness or dizziness. 5. Dressing: New Mepilex dressing was placed over the incision today. The incision appears very well with kitty in place. No surrounding erythema around the incision. No drainage. 6. Left knee aspiration: Left knee aspiration was attempted under sterile conditions. I attempted redirection of the needle many times. I was unable to get any synovial fluid. I was only able to get four small drops of dark red blood from aspiration. There was no purulence or signs of infection from aspiration. I did not have enough fluid to send for analysis. 7. Physical therapy/Occupational Therapy: Currently no orthopedic restrictions with regards to left knee other than using walker for ambulatory assistance. Range of motion as tolerated. 8. Continue postoperative medical management per medical team: Appreciate recommendations from medical standpoint. Continue on the IV vancomycin and cefepime per medicine 9. Disposition: From orthopedic standpoint there is a very low suspicion of septic knee. Patient's pain is well-controlled and he is not in any distress. There is warmth with ecchymosis consistent with postoperative day #3 total knee arthroplasty. On aspiration there was no purulence but very little dark blood was obtained. There was not enough for analysis. We will continue to follow this clinically from an orthopedic standpoint. After obtaining history and exam concern more for postoperative acute blood loss anemia versus dehydration. Patient denied to me any fevers at home. Currently afebrile. No leukocytosis. No burning on urination. Blood and urine cultures have also been obtained and waiting results. Will also await results of the Doppler ultrasound. Patient will continue on current pain regimen. Case was discussed in depth with Dr. Ta Whitfield. Based on Doppler ultrasound results if negative recommend going back on his aspirin 81 mg twice daily. Will re-exam patient and his knee tomorrow and monitor clinically at this time. Appreciate consultation and assistance with managing patient from a medical standpoint. Case was also discussed with medicine and we will continue to follow clinically. This dictation was created using voice recognition software. Phonetic and/or grammatical errors may exist. HPI Consult Data Date of Consult: 06/11/24 HPI Narrative Reason for Consultation: Concern for septic shock after postoperative left total knee arthroplasty HPI Narrative: KAYCEE ELLINGTON, is a 68 M who presented to the emergency room today tachycardic but afebrile. Patient had a left robotic assisted total knee arthroplasty on June 08, [address] Ta Whitfield. Postoperatively patient was using Tylenol and oxycodone for pain control. He was complaining of constipation and was using senna at home. Patient states on Wednesday evening he got up to use the bathroom and experienced some lightheadedness/near syncope. The called EMS. At that time when EMS arrived his vitals were stable and he did not want to be transferred to the hospital. Today patient stood up to use the bathroom and he had a syncope event with nausea and vomiting. Patient states there was no drainage on the dressing until after the fall. Patient had EMS called and brought to [facility] emergency room. Patient denies any fevers or chills at home. He states the knee pain was feeling better yesterday. He does not appear to be in distress currently. Since being in the hospital he has had loose bowel movements. Patient reports that he was drinking fluids and protein drink postoperatively while at home. Patient had lab work with ESR 12 and CRP 147. Lactic acid 2.7. CBC obtained with white blood cell count 9.3, platelet 202 with left shift. Follow-up labs showed hemoglobin at 9.8. Patient had some low blood pressure. Urinalysis has been obtained as well as urine cultures and blood cultures. Patient's blood pressure has stabilized. Patient also had a CT abdomen pelvis and x-ray knee. X-ray knee shows stable implants. Patient has medical history pertinent for hypertension, chronic kidney disease stage III, coronary artery disease, and hyperlipidemia. Patient denies any past history of DVT or pulmonary embolism. He was using aspirin postoperatively. Doppler ultrasound has been ordered but not obtained at this point. Currently with acute macrocytic anemia possibly related with mild blood loss from recent operation. [facility] Medical History Hyperlipidemia Amputation of toe of right foot Internal hemorrhoids without mention of complication Diverticulosis of colon (without mention of hemorrhage) Conrad's cyst Carpal tunnel syndrome Lower back injury Hypertension Home Medications ?Medication ?Instructions ?Recorded ?Last Taken ?Type lisinopril 20 mg tablet 20 mg PO QDAY 02/23/24 Unknown History multivitamin with minerals 1 cap PO QDAY 02/23/24 Unknown History pantoprazole 40 mg tablet,delayed 40 mg PO QDAY 02/23/24 Unknown History release aspirin 81 mg tablet,delayed 81 mg PO QDAY #90 tabs 02/29/24 Unknown Rx release (Adult Aspirin Regimen) cholecalciferol (vitamin D3) 25 25 mcg PO QDAY 02/29/24 Unknown History mcg (1,000 unit) capsule rosuvastatin 5 mg tablet 5 mg PO QDAY 02/29/24 Unknown History carvedilol 6.25 mg tablet 6.25 mg PO BID #180 tabs 04/04/24 Unknown Rx Allergy/AdvReac Type Severity Reaction Status Date / Time terbinafine Allergy Severe Rash Verified 06/10/24 22:48 Family History Mother Congestive heart failure CVA (cerebral vascular accident) Father CAD (coronary artery disease) Brother Myocardial infarction Diabetes Obesity Kidney failure Obstructive sleep apnea Surgical History History of cataract extraction with lens replacement History of hand surgery History of repair of rotator cuff Status post surgical removal of nail matrix of toe of right foot History of lumbar laminectomy Hx of excision of lamina of cervical vertebra for decompression of spinal cord Hx of left knee surgery H/O neck surgery Social History household members: spouse Smoking Status: Never smoker Smokeless tobacco user: chewing tobacco and other Electronic Cigarette Use: not used alcohol intake: current alcohol intake frequency: a few times a week Alcohol type: beer details: (2) CANS OF BEER (12OZ) PER WEEK ROS ROS Narrative Patient has had no recent fevers, chills. Was complaining of nausea and vomiting with abdominal pain upon admission. Currently with loose bowels. Denies any burning sensation with urination Physical Exam Narrative Vital signs stable and afebrile. Patient is able to plantarflex and dorsiflex actively. Increased warmth to patient's left knee Reactive surrounding erythema and ecchymosis Clinically no significant effusion Swelling to the left lower extremity with 2+ pitting edema Sensation is intact to light touch to saphenous, sural, superficial and deep peroneal, and tibial distribution. Mepilex dressing has spotty drainage throughout entire dressing, distal pin site with old mild drainage. Mepilex dressing was removed and there was no surrounding erythema around the incision or ecchymosis. No drainage. Ecchymosis surrounding the knee. Negative Homans on right and positive calf pain on left At rest minimal pain left knee. With passive range of motion increased pain in the left knee Const alert, oriented x3 and no apparent distress General Appearance: cooperative and comfortable Lab / Micro Data 06/11/24 06:25 06/11/24 06:25 Labs: Laboratory Results - last 24 hr 06/11/24 00:02: WBC 9.3, RBC 3.80 L, Hgb 12.6 L, Hct 38.5 L, MCV 101.3 H, MCH 33.2 H, MCHC 32.7, RDW Std Deviation 48.2 H, RDW Coeff of Tangela 13.0, Plt Count 202, MPV 11.4, Immature Gran % (Auto) 0.200, Neut % (Auto) 91.1 H, Lymph % (Auto) 5.9 L, [place] % (Auto) 2.3, Eos % (Auto) 0.2, Baso % (Auto) 0.3, Absolute Neuts (auto) 8.5 H, Absolute Lymphs (auto) 0.55 L, Nucleated RBC % 0, Sodium 131 L, Potassium 5.4 H, Chloride 98, Carbon Dioxide 21.0, Anion Gap 12, BUN 31 H, Creatinine 2.15 H, Estim Creat Clear Calc 33.95, Est GFR (MDRD) Af Amer 39 L, Est GFR (MDRD) Non-Af 33 L, BUN/Creatinine Ratio 14.4, Glucose 149 H, Calcium 9.8, Magnesium 3.2 H, Total Bilirubin 2.60 H, Direct Bilirubin 0.69 H, AST 53 H, ALT 37, Alkaline Phosphatase 54, Total Protein 7.0, Albumin 3.4, Globulin 3.6, Lipase 49 L 06/11/24 01:57: Lactic Acid 2.7 H*, Procalcitonin 2.51 H 06/11/24 06:25: WBC 6.1, RBC 2.94 L, Hgb 9.8 L, Hct 29.3 L, MCV 99.7 H, MCH 33.3 H, MCHC 33.4, RDW Std Deviation 47.1 H, RDW Coeff of Tangela 13.0, Plt Count 165, MPV 10.5, Immature Gran % (Auto) 0.200, Neut % (Auto) 85.2 H, Lymph % (Auto) 5.1 L, [place] % (Auto) 9.2, Eos % (Auto) 0.0, Baso % (Auto) 0.3, Absolute Neuts (auto) 5.2, Absolute Lymphs (auto) 0.31 L, Nucleated RBC % 0, Platelet Estimate A, ESR 12, Sodium 134 L, Potassium 4.3, Chloride 106, Carbon Dioxide 19.0 L, Anion Gap 9, BUN 37 H, Creatinine 2.10 H, Estim Creat Clear Calc 33.67, Est GFR (MDRD) Af Amer 41 L, Est GFR (MDRD) Non-Af 34 L, BUN/Creatinine Ratio 17.6, Glucose 122 H, Hemoglobin A1c 5.2, Lactic Acid 1.1, Calcium 8.6, Phosphorus 4.1, Magnesium 2.7 H, Iron 7 L, TIBC 273, Iron Saturation 2.6 L, Ferritin 374, Total Bilirubin 1.70 H, AST 32, ALT 27, Alkaline Phosphatase 43 L, Troponin I High Sens 53, C-React Prot Ext Range 147.00 H, Total Protein 5.4 L, Albumin 2.6 L, Globulin 2.8, Albumin/Globulin Ratio 0.9, Folate 24.00 06/11/24 08:06: Urine Color Araceli, Urine Clarity Sl. Cloudy, Urine pH 5.0, Ur Specific [place] 1.015, Urine Protein 30 H, Urine Glucose (UA) Normal, Urine Ketones 15 H, Urine Occult Blood 10 H, Urine Nitrite Negative, Urine Bilirubin 3 H, Urine Urobilinogen 4 H, Ur Leukocyte Esterase 100 H, Urine RBC 0-5 SEEN, Urine WBC 0-5 SEEN, Ur Squamous Epith Cells 0 SEEN, Amorphous Sediment 1+ URATE, Urine Bacteria 0 SEEN, Hyaline Casts 0-5 SEEN, Urine Mucus 0 SEEN 06/11/24 08:20: PT 15.5 H, INR 1.2, APTT 33.3 06/11/24 08:50: Troponin I High Sens 44 Imaging Radiology Impression KUB X-Ray 06/10/24 23:26 IMPRESSION: Mild gaseous distention of the transverse colon. No definite evidence of obstruction. No suspicious intra-abdominal calcifications. Lung bases are relatively clear. Degenerative changes of the spine with dextroscoliosis. Reading Location: [facility] Chest X-Ray 06/10/24 23:59 IMPRESSION: No acute airspace abnormality. Reading Location: [facility] Abdomen/Pelvis CT 06/11/24 01:03 IMPRESSION: 1. Cirrhosis with mild perihepatic ascites 2. Significant amount of stool noted throughout the colon. Correlate with constipation. 3. Sigmoid diverticulosis One or more dose reduction techniques were used (e.g., Automated exposure control, adjustment of the mA and/or kV according to patient size, use of iterative reconstruction technique). Reading Location: [facility] Knee X-Ray 06/11/24 04:38 IMPRESSION: No acute osseous abnormalities. Status post left total knee arthroplasty. Reading Location: [facility] Chest X-Ray 06/11/24 05:00 IMPRESSION: Interval insertion of a right central venous catheter as detailed above. Developing infiltrate versus nodule in the left lower lobe. Reading Location: [facility]
--- NOTE | 2024-06-11 12:18 | PCMCONS.TICU ---
HPI Consult Data Date of Consult: 06/11/24 HPI Narrative Reason for Consultation: Sepsis, shock HPI Narrative: KAYCEE ELLINGTON, is a 68 M who presents after recent TKA with 100.1 temp at home, abdominal cramping and hypotension. He has been on antiHTNives for HTN, but was also clinically dry on exam and received 3L IVF for a presumed sepsis presentation in ED. He was still ypotensive and was started on pressor, norepinephrine, and admitted to ICU. He is now s/p arthrocentesis as well with the opnion of the surgeon that the knee appears unremarkable and there appears to be no overlying soft tissue infection. CXR has been clear. CT Abdomen without evience of colitis. UA mixed positive for UTI with (+) LE, (-) nitrate, no bacteria or WBC. Patient denies symptoms of UTI. Abdominal crmaping has been bothersome but not pain out of proportion. Diarrhea has been frequent but not foul smelling. Had been constipated prior to that. No cough or phlegm. [facility] Medical History Hyperlipidemia Amputation of toe of right foot Internal hemorrhoids without mention of complication Diverticulosis of colon (without mention of hemorrhage) Conrad's cyst Carpal tunnel syndrome Lower back injury Hypertension Home Medications ?Medication ?Instructions ?Recorded ?Last Taken ?Type lisinopril 20 mg tablet 20 mg PO QDAY 02/23/24 Unknown History multivitamin with minerals 1 cap PO QDAY 02/23/24 Unknown History pantoprazole 40 mg tablet,delayed 40 mg PO QDAY 02/23/24 Unknown History release aspirin 81 mg tablet,delayed 81 mg PO QDAY #90 tabs 02/29/24 Unknown Rx release (Adult Aspirin Regimen) cholecalciferol (vitamin D3) 25 25 mcg PO QDAY 02/29/24 Unknown History mcg (1,000 unit) capsule rosuvastatin 5 mg tablet 5 mg PO QDAY 02/29/24 Unknown History carvedilol 6.25 mg tablet 6.25 mg PO BID #180 tabs 04/04/24 Unknown Rx Allergy/AdvReac Type Severity Reaction Status Date / Time terbinafine Allergy Severe Rash Verified 06/10/24 22:48 Family History Mother Congestive heart failure CVA (cerebral vascular accident) Father CAD (coronary artery disease) Brother Myocardial infarction Diabetes Obesity Kidney failure Obstructive sleep apnea Surgical History History of cataract extraction with lens replacement History of hand surgery History of repair of rotator cuff Status post surgical removal of nail matrix of toe of right foot History of lumbar laminectomy Hx of excision of lamina of cervical vertebra for decompression of spinal cord Hx of left knee surgery H/O neck surgery Social History household members: spouse Smoking Status: Never smoker Smokeless tobacco user: chewing tobacco and other Electronic Cigarette Use: not used alcohol intake: current alcohol intake frequency: a few times a week Alcohol type: beer details: (2) CANS OF BEER (12OZ) PER WEEK ROS ROS Narrative 10 or more systems reviewed with the patient and are negative except as above in HPI Objective Data Objective Data Vital Signs: Vital Signs Last response Temperature 36.2 C L 06/11/24 08:00 Temperature Source Temporal 06/11/24 08:00 Pulse Rate 90 06/11/24 11:00 Pulse Strength Normal (2+) 06/11/24 08:33 Respiratory Rate 18 06/11/24 09:00 Respiratory Effort Normal, Non-Labored 06/11/24 06:00 Respiratory Depth Normal 06/11/24 06:00 Respiratory Pattern Normal 06/11/24 06:00 Blood Pressure 113/55 L 06/11/24 09:45 Blood Pressure Mean 74 06/11/24 09:45 Blood Pressure Source Monitor 06/11/24 05:47 Blood Pressure Position Semi-Fowlers 06/11/24 05:47 Blood Pressure Location Right Arm 06/11/24 05:47 Pulse Ox 98 06/11/24 09:00 Oxygen Delivery Method Room Air 06/11/24 09:00 I&O: I&O Last 24 Hours 06/10/24 06/11/24 06/11/24 23:59 11:59 23:59 Intake Total 500 / 500 3345.31 / 3345.31 Output Total 300 / 300 Balance 500 / 500 3045.31 / 3045.31 I&O: Total Stay 06/10/24 22:47 thru 06/11/24 11:48 Intake Total 3845.31 Output Total 300 Balance 3545.31 Current Meds Ordered / Administered: Current meds ordered / Administered Generic Name Dose Route Start Last Admin Trade Name Freq PRN Reason Stop Dose Admin Acetaminophen 650 mg 06/11/24 05:38 Acetaminophen 325 Mg Tablet PO Q4H PRN PRN Fever, pain 1-10 Al Hydroxide/Mg Hydroxide 30 ml 06/11/24 05:38 Mag Hydrox/Al Hydrox/Simeth 30 Ml Udc PO Q6H PRN PRN Gastric Burning Albuterol Sulfate 2.5 mg 06/11/24 05:38 Albuterol 2.5 Mg/3 Ml Vial.Neb. INHALATION Q2H PRN PRN Dyspnea, wheezing Aspirin 81 mg 06/11/24 08:00 06/11/24 08:20 Aspirin E.C. 81 Mg Tablet PO 81 mg BREAKFAST DEIDRE Administration Atorvastatin Calcium 10 mg 06/11/24 22:00 Atorvastatin Calcium 10 Mg Tablet PO QHS DEIDRE Calamine/Phenol 1 applic 06/11/24 10:00 06/11/24 10:02 Menthol/Lanolin/Calamine/Znox 113 Gm Tube TOPICAL 1 applic BID [facility] Administration Protocol Chlorhexidine Gluconate 1 each 06/11/24 10:00 06/11/24 08:20 Chlorhexidine Gluc 2% Cloth 1 Each Towelette TOPICAL 1 each DAILY DEIDRE Administration Docusate Sodium 100 mg 06/11/24 10:00 06/11/24 07:48 Docusate Sodium 100 Mg Capsule PO Not Given BID DEIDRE Guaifenesin 10 ml 06/11/24 05:38 Guaifenesin 10 Ml Udc (200mg/10ml) PO Q4H PRN PRN COUGH Heparin Sodium (Porcine) 0 unit 06/11/24 06:10 Heparin Injection (Vial) 5,000 Unit/Ml Vial IV UD PRN dose adjustment Protocol Cefepime HCl 2 gm/ Sodium 100 mls @ 200 mls/hr 06/11/24 10:00 06/11/24 08:38 Chloride IV Infused Q12 DEIDRE Infusion Sodium Chloride 1,000 mls @ 100 mls/hr 06/11/24 05:38 06/11/24 07:47 IV 06/11/24 15:37 100 mls/hr .Q10H DEIDRE Administration Protocol Pantoprazole Sodium 40 mg/ 110 mls @ 330 mls/hr 06/11/24 06:00 06/11/24 08:38 Sodium Chloride IV Infused Q12 DEIDRE Infusion Heparin Sodium/Dextrose 25,000 units in 250 mls @ 12 mls/hr 06/11/24 05:38 06/11/24 08:48 CONT INF 1,200 units/hr .[id number] DEIDRE 12 mls/hr Administration Protocol As Directed Sodium Chloride 100 mls @ 15 mls/hr 06/11/24 06:00 IV .Q6H40M PRN Saline Flush Sodium Chloride 100 mls @ 15 mls/hr 06/11/24 06:00 IV .Q6H40M PRN Additional IVPB Infusion Norepinephrine Bitartrate 8 mg 250 mls @ 9.375 mls/hr 06/11/24 06:35 06/11/24 09:45 / Sodium Chloride CONT INF 1 mcg/min .[id number] DEIDRE 1.9 mls/hr Titration Protocol 5 MCG/MIN Melatonin 3 mg 06/11/24 05:38 Melatonin 3 Mg Tablet PO QHS PRN PRN INSOMNIA Morphine Sulfate 2 mg 06/11/24 05:38 Morphine 2 Mg/Ml Syringe IV Q3H PRN PRN Pain Score 6-10 Ondansetron HCl 4 mg 06/11/24 05:38 Ondansetron 4 Mg/2 Ml Vial IV Q8H PRN PRN NAUSEA/VOMITING Oxycodone HCl 5 mg 06/11/24 05:38 Oxycodone 5 Mg Tablet PO Q4H PRN PRN Pain Score 4-10 Prochlorperazine Edisylate 5 mg 06/11/24 05:38 Prochlorperazine 10 Mg/2 Ml Vial IV Q4H PRN PRN Breakthrough Nausea/Vomiting Sodium Chloride 10 - 40 ml 06/11/24 06:00 0.9 % Nacl (Sterile) Posiflush 10 Ml IV UD PRN Port access or dressing change Sodium Chloride 10 - 40 ml 06/11/24 06:00 0.9% Saline Lock 10 Ml Syringe IV UD PRN Multilumen/Blackwell Flush Sodium Chloride 10 - 40 ml 06/11/24 06:00 0.9% Saline Lock 10 Ml Syringe IV UD PRN SALINE FLUSH Physical Exam Const alert, oriented x3 and no apparent distress General Appearance: cooperative and well developed HEENT normocephalic, head/scalp atraumatic and moist oral mucous membranes Mouth: oral and palatal mucosa normal Eyes PERRL, EOMs intact bilaterally, conjunctivae normal and no scleral icterus Neck full ROM and no JVD Chest inspection of chest normal Resp normal respiratory effort and no use of accessory muscles Effort and Inspection: able to speak in complete sentences Auscultation: clear to auscultation bilaterally Cardio regular rate and regular rhythm GI normal to inspection, nondistended, normoactive bowel sounds, soft to palpation and non-tender no CVA tenderness Extremity no clubbing, cyanosis or edema Skin Skin Narrative: hematoma/ecchymoses Neuro oriented x3, CN's II-XII intact bilaterally, moves all extremities and no focal motor deficits Psych cooperative and affect normal Appearance: well kempt Speech: normal speech Lab / Micro Data 06/11/24 06:25 06/11/24 06:25 Labs: Laboratory Results - last 24 hr 06/11/24 00:02: WBC 9.3, RBC 3.80 L, Hgb 12.6 L, Hct 38.5 L, MCV 101.3 H, MCH 33.2 H, MCHC 32.7, RDW Std Deviation 48.2 H, RDW Coeff of Tangela 13.0, Plt Count 202, MPV 11.4, Immature Gran % (Auto) 0.200, Neut % (Auto) 91.1 H, Lymph % (Auto) 5.9 L, [place] % (Auto) 2.3, Eos % (Auto) 0.2, Baso % (Auto) 0.3, Absolute Neuts (auto) 8.5 H, Absolute Lymphs (auto) 0.55 L, Nucleated RBC % 0, Sodium 131 L, Potassium 5.4 H, Chloride 98, Carbon Dioxide 21.0, Anion Gap 12, BUN 31 H, Creatinine 2.15 H, Estim Creat Clear Calc 33.95, Est GFR (MDRD) Af Amer 39 L, Est GFR (MDRD) Non-Af 33 L, BUN/Creatinine Ratio 14.4, Glucose 149 H, Calcium 9.8, Magnesium 3.2 H, Total Bilirubin 2.60 H, Direct Bilirubin 0.69 H, AST 53 H, ALT 37, Alkaline Phosphatase 54, Total Protein 7.0, Albumin 3.4, Globulin 3.6, Lipase 49 L 02/23/25 01:57: Lactic Acid 2.7 H*, Procalcitonin 2.51 H 06/11/24 06:25: WBC 6.1, RBC 2.94 L, Hgb 9.8 L, Hct 29.3 L, MCV 99.7 H, MCH 33.3 H, MCHC 33.4, RDW Std Deviation 47.1 H, RDW Coeff of Tangela 13.0, Plt Count 165, MPV 10.5, Immature Gran % (Auto) 0.200, Neut % (Auto) 85.2 H, Lymph % (Auto) 5.1 L, [place] % (Auto) 9.2, Eos % (Auto) 0.0, Baso % (Auto) 0.3, Absolute Neuts (auto) 5.2, Absolute Lymphs (auto) 0.31 L, Nucleated RBC % 0, Platelet Estimate A, ESR 12, Sodium 134 L, Potassium 4.3, Chloride 106, Carbon Dioxide 19.0 L, Anion Gap 9, BUN 37 H, Creatinine 2.10 H, Estim Creat Clear Calc 33.67, Est GFR (MDRD) Af Amer 41 L, Est GFR (MDRD) Non-Af 34 L, BUN/Creatinine Ratio 17.6, Glucose 122 H, Hemoglobin A1c 5.2, Lactic Acid 1.1, Calcium 8.6, Phosphorus 4.1, Magnesium 2.7 H, Iron 7 L, TIBC 273, Iron Saturation 2.6 L, Ferritin 374, Total Bilirubin 1.70 H, AST 32, ALT 27, Alkaline Phosphatase 43 L, Troponin I High Sens 53, C-React Prot Ext Range 147.00 H, Total Protein 5.4 L, Albumin 2.6 L, Globulin 2.8, Albumin/Globulin Ratio 0.9, Folate 24.00 06/11/24 08:06: Urine Color Araceli, Urine Clarity Sl. Cloudy, Urine pH 5.0, Ur Specific [place] 1.015, Urine Protein 30 H, Urine Glucose (UA) Normal, Urine Ketones 15 H, Urine Occult Blood 10 H, Urine Nitrite Negative, Urine Bilirubin 3 H, Urine Urobilinogen 4 H, Ur Leukocyte Esterase 100 H, Urine RBC 0-5 SEEN, Urine WBC 0-5 SEEN, Ur Squamous Epith Cells 0 SEEN, Amorphous Sediment 1+ URATE, Urine Bacteria 0 SEEN, Hyaline Casts 0-5 SEEN, Urine Mucus 0 SEEN 06/11/24 08:20: PT 15.5 H, INR 1.2, APTT 33.3 06/11/24 08:50: Troponin I High Sens 44 Micro: Microbiology 06/11/24 08:00 Nasal Secretion MRSA (PCR) - Final Imaging Radiology Impression KUB X-Ray 06/10/24 23:26 IMPRESSION: Mild gaseous distention of the transverse colon. No definite evidence of obstruction. No suspicious intra-abdominal calcifications. Lung bases are relatively clear. Degenerative changes of the spine with dextroscoliosis. Reading Location: [facility] Chest X-Ray 06/10/24 23:59 IMPRESSION: No acute airspace abnormality. Reading Location: [facility] Abdomen/Pelvis CT 06/11/24 01:03 IMPRESSION: 1. Cirrhosis with mild perihepatic ascites 2. Significant amount of stool noted throughout the colon. Correlate with constipation. 3. Sigmoid diverticulosis One or more dose reduction techniques were used (e.g., Automated exposure control, adjustment of the mA and/or kV according to patient size, use of iterative reconstruction technique). Reading Location: [facility] Knee X-Ray 06/11/24 04:38 IMPRESSION: No acute osseous abnormalities. Status post left total knee arthroplasty. Reading Location: [facility] Chest X-Ray 06/11/24 05:00 IMPRESSION: Interval insertion of a right central venous catheter as detailed above. Developing infiltrate versus nodule in the left lower lobe. Reading Location: [facility] CXR reviewed personally- no PNA Assessment and Plan . Assessment and plan: ICU Problem List: hypovolemic shock SIRS without organ failure surgical wound POA diarrhea Plan: start IV maintenance fluids and PO ad vj empiric coverage of GNR with zosyn appropriate for now vancomycin appropriate 2/2 wound incentive spirometry for prevention of atelectasis and HCAP fecal leukocyte testing, but cannot test C Diff as patient was on laxatives PO midodrine 10mg q8h if MAP drops MAP goal 65torr Meir Freeman MD [facility] Critical Care Time: 60 min The entirety of this encounter was done via Telemedicine
[2024-06-11 13:40] LABS: Troponin-I HS 32 pg/mL (3.0-78.0)
--- NOTE | 2024-06-11 14:29 | PCM.PN.HOSP ---
Reason for Visit Reason for Visit: Diagnoses Sepsis, unspecified organism (06/11/24) Severe sepsis with septic shock (06/11/24) Objective Data Objective Data Vital Signs: Vital Signs Temp Pulse Resp BP Pulse Ox O2 Del Method 98.3 F 92 18 141/54 H 98 Room Air 06/11/24 05:47 06/11/24 06:00 06/11/24 06:00 06/11/24 05:47 06/11/24 06:00 06/11/24 06:00 Oxygen Delivery Method Room Air Weight: 178 lb 12.718 oz Body Mass Index (BMI) 25.6 Intake & Output: Intake and Output for Last 24 Hours 06/09/24 06/10/24 06/11/24 23:59 23:59 23:59 Intake Total 500 / 500 2573.19 / 2573.19 Balance 500 / 500 2573.19 / 2573.19 Lab / Micro Data 06/11/24 06:25 06/11/24 06:25 Labs: Laboratory Results - last 24 hr 06/11/24 00:02: WBC 9.3, RBC 3.80 L, Hgb 12.6 L, Hct 38.5 L, MCV 101.3 H, MCH 33.2 H, MCHC 32.7, RDW Std Deviation 48.2 H, RDW Coeff of Tangela 13.0, Plt Count 202, MPV 11.4, Immature Gran % (Auto) 0.200, Neut % (Auto) 91.1 H, Lymph % (Auto) 5.9 L, [place] % (Auto) 2.3, Eos % (Auto) 0.2, Baso % (Auto) 0.3, Absolute Neuts (auto) 8.5 H, Absolute Lymphs (auto) 0.55 L, Nucleated RBC % 0, Sodium 131 L, Potassium 5.4 H, Chloride 98, Carbon Dioxide 21.0, Anion Gap 12, BUN 31 H, Creatinine 2.15 H, Estim Creat Clear Calc 33.95, Est GFR (MDRD) Af Amer 39 L, Est GFR (MDRD) Non-Af 33 L, BUN/Creatinine Ratio 14.4, Glucose 149 H, Calcium 9.8, Magnesium 3.2 H, Total Bilirubin 2.60 H, Direct Bilirubin 0.69 H, AST 53 H, ALT 37, Alkaline Phosphatase 54, Total Protein 7.0, Albumin 3.4, Globulin 3.6, Lipase 49 L 06/11/24 01:57: Lactic Acid 2.7 H*, Procalcitonin 2.51 H 06/11/24 06:25: WBC 6.1, RBC 2.94 L, Hgb 9.8 L, Hct 29.3 L, MCV 99.7 H, MCH 33.3 H, MCHC 33.4, RDW Std Deviation 47.1 H, RDW Coeff of Tangela 13.0, Plt Count 165, MPV 10.5, Immature Gran % (Auto) 0.200, Neut % (Auto) 85.2 H, Lymph % (Auto) 5.1 L, [place] % (Auto) 9.2, Eos % (Auto) 0.0, Baso % (Auto) 0.3, Absolute Neuts (auto) 5.2, Absolute Lymphs (auto) 0.31 L, Nucleated RBC % 0, Lactic Acid 1.1 Radiography Diagnostic Testing: Radiology Impression KUB X-Ray 06/10/24 23:26 IMPRESSION: Mild gaseous distention of the transverse colon. No definite evidence of obstruction. No suspicious intra-abdominal calcifications. Lung bases are relatively clear. Degenerative changes of the spine with dextroscoliosis. Reading Location: [facility] Chest X-Ray 06/10/24 23:59 IMPRESSION: No acute airspace abnormality. Reading Location: [facility] Abdomen/Pelvis CT 06/11/24 01:03 IMPRESSION: 1. Cirrhosis with mild perihepatic ascites 2. Significant amount of stool noted throughout the colon. Correlate with constipation. 3. Sigmoid diverticulosis One or more dose reduction techniques were used (e.g., Automated exposure control, adjustment of the mA and/or kV according to patient size, use of iterative reconstruction technique). Reading [facility] Knee X-Ray 06/11/24 04:38 IMPRESSION: No acute osseous abnormalities. Status post left total knee arthroplasty. Reading Location: [facility] Chest X-Ray 06/11/24 05:00 IMPRESSION: Interval insertion of a right central venous catheter as detailed above. Developing infiltrate versus nodule in the left lower lobe. Reading Location: [facility] Physical Exam Narrative Seen and examined. Patient had left knee replacement as an ambulatory procedure on September 2024. Did not had bowel movement since then. Patient felt lightheaded near syncope on Wednesday evening and then to syncopal event on day of admission after he stood up to go bathroom with nausea and vomiting. Fever about 100 Fahrenheit but he was taking Percocet Left knee swollen and tender physical exam: General: Alert, Oriented x3, Cooperative HEENT: Atraumatic, PERRLA, EOMI, Normocephalic Oral: No Gingival or Mucosal Lesions/ Ulcerations Neck: Supple, No JVD, Negative Carotid Bruits Chest wall/Lungs: Air entry diminished in bilateral lung bases. No crepitation/rhonchi Cardiovascular: Irregular heart rate. On vasopressor. No murmur gallop rub. Abdomen: Bowel Sounds Present, Soft, Non Tender, Non-Distended : No dysuria. No renal angle tenderness. No suprapubic tenderness. Extremities: No edema, Capillary Refill Less than 3 Seconds Skin: Left knee bruise subcutaneous. ROM limited. Musculoskeletal: Left knee tender, swollen with bruise. Small subcutaneous bruise/hematoma? Other joints of extremities: No tenderness. Neurological: Cranial nerves II-XII grossly intact, DTR 2+/4. No acute focal neurological deficit. Psych/Mental Status: Normal Affect, Appropriate. Assessment & Plan Assessment/Plan (1) Septic shock: PLAN: Plan The patient is a 68 y/o M was admitted with near syncope symptoms lightheadedness and dizziness on 06/09 night and then to syncope on 06/10, losing consciousness. Low-grade fever on Percocet. 1. Shock most likely septic with exact focus of infection unclear but possible soft tissue/knee joint ordered distributive shock: Patient recently had left TKR on 06/08. The patient presented with sepsis with clinical indicators of tachycardia, low-grade fever, tachypnea due to exact focus of infection with acute sepsis-related organ dysfunction as evidenced by IV fluid unresponsive hypotension requiring vasopressor and lactic acidosis. Patient on IV cefepime and vancomycin. Orthopedic surgery, Dr. Whitfield consulted and notified. Left knee x-ray initially reviewed and shows no suspicious bone lesion or fracture, normal alignment, no effusion but soft tissue swelling. ID also consulted Discussed with the orthopedic PA after I notified orthopedic surgeon Dr. Whitfield. He saw the patient. He does not think patient is septic knee Doppler ultrasound elopement note obtained urine. He tried to aspirate left knee but it was applied. He recommends 81 mg aspirin twice daily for 4 weeks postoperatively. Patient has ecchymosis around left knee. He also said that patient fell down after surgery. Owner Professional Engineer note reviewed. Empiric coverage with IV cefepime and vancomycin. Advised p.o. midodrine 10 mg every 8 hours if MAP drops. #2. Acute kidney injury on CKD stage IIIa: Suspect admitted to shock but related to GI loss. Baseline creatinine around 1.41. Admitted with BUN/creatinine 31/2.35. Monitor kidney function. Hold nephrotoxic medication #3. Syncopal Event: Twelve-lead EKG done in the ED shows sinus rhythm. She is preop EKG on 05/19 sinus rhythm with PACs. On the house supervisor it is A-fib. Twelve-lead EKG ordered. Patient does not have any cardiac or chest comfort including chest pain pressure tightness or shortness of breath. Twelve-lead EKG repeat was done and shows NSR 86 bpm. #4. Abdominal pain, nausea, emesis secondary to significant postoperative constipation with CT imaging with questionable mildly lobulated liver: Continue IV fluid. Patient was started on GoLytely and antibiotic patient to start having very loose bowel movement multiple 4 times. #6. Acute macrocytic anemia, possibly related with mild blood loss given recent operative intervention: Admission H&H 12.6 dropped to 9.8. Preop H&H was 13.1/38% MCV 101. #8. Hyperbilirubinemia, mild transaminitis with lobated liver noted: Total bilirubin increased to 2.6, direct 0.69 therefore mainly indirect hyperbilirubinemia. AST 53 mildly elevated ALT and alkaline phosphatase normal. Does not go with ischemic hepatitis may be from surgical history/inflammation or drug-induced. Monitor liver chemistry. CT shows mild lobulated liver and reported cirrhosis, treatment to be effective. On my review, liver does not seem nodular or lobulated therefore less likely cirrhosis but hypoattenuation, fat edema. #9. CAD: Patient with outpatient coronary calcium scoring which is markedly elevated, noted follow-up with cardiology 02/29/2024 with EKG at that time with nonspecific ST changes, recommendation given asymptomatic to obtain stress test and echocardiogram which were performed, 03/13/2024 stress testing unremarkable per review of exercise test report but no obvious final impression noted, echocardiogram 03/13/2024 with EF 60%, mild MVI, mild TBI, mildly dilated aortic root with negative bubble contrast study. Will continue baby aspirin, statin, holding hypertensive regimen as noted. #10. Hypertension: In shock. On vasopressor #11. Hyperlipidemia: Continue patient on statin therapy. #12. Chew tobacco: Encouraged tobacco cessation, nicotine replacement if necessary. #13. DVT prophylaxis: Heparin drip pending LLE DVT. #14. CODE status: Patient ELROY is his who is present and living will is currently in place. Discussed CODE status at length including difference between FULL code, DNR-CCA and DNR-CC status. Following discussions about the differences in these status, requested Full Code status. Advanced Care Planning Face to Face Time: 16 minutes. Sepsis Attestation Sepsis Alert: Yes Sepsis Attestation: Agree w/Sepsis Date exam was performed: 06/11/24 Possible Source of Sepsis: Unknown and Skin/soft tissue Sepsis Organ Dysfunction Criteria Present: SBP < 90 mmHg or MAP < 65 mmHg, SBP decrease of more than 40 mmHg, Creatinine > 2.0 mg/dL and Lactic Acid > 2 mmol/L Supportive Findings: Initial sepsis documentation already done by admitting hospitalist. Sepsis reevaluation was done by IV. Sepsis Note Date exam was performed: 06/11/24 Time exam was performed: 08:20 Sepsis Attestation: Sepsis re-evaluation was performed Response to fluids: Non Fluid responsive hypotension and Vasopressors started Charges/Coding Addendum Addendum: Total time of the visit including total time spent in counseling or coordination of care, (more than 50% of the total time, spent in obtaining medical information from nurses and other ancillary care providers ,explaining to the patient about labs, imaging, diagnosis and management of active complex medical conditions), discussion with claims investigator and orthopedic surgeon, review of labs and imaging is 40 minutes. Visit Charges Inpatient E&M: 09172 [facility] Hosp L3
--- NOTE | 2024-06-11 14:45 | PCM.RX.CS ---
Consult Antibiotic Management Pharmacy has been consulted to manage selected antibiotic: Vancomycin Type of Intervention Type of Consult: New start Prior Doses of Antibiotics Prior Doses of Antibiotics Received/Current Regimen: received vanc 2000mg IV x1 in E.R. today at 05:20 Labs Labs: Sodium 134 mmol/L (136-145) L 06/11/24 06:25 Potassium 4.3 mmol/L (3.5-5.1) 06/11/24 06:25 Chloride 106 mmol/L (98-107) 06/11/24 06:25 Carbon Dioxide 19.0 mmol/L (21.0-32.0) L 06/11/24 06:25 Anion Gap 9 (5-15) 06/11/24 06:25 BUN 37 mg/dL (7-18) H 06/11/24 06:25 Creatinine 2.10 mg/dL (0.70-1.30) H 06/11/24 06:25 Est GFR (MDRD) Af Amer 41 mL/min (>60) L 06/11/24 06:25 Est GFR (MDRD) Non-Af 34 mL/min (>60) L 06/11/24 06:25 BUN/Creatinine Ratio 17.6 RATIO (10-20) 06/11/24 06:25 Glucose 122 mg/dL (74-106) H 06/11/24 06:25 Microbiology Microbiology: Microbiology 06/11/24 13:00 Stool Stool Lactoferrin - Final 06/11/24 08:00 Nasal Secretion MRSA (PCR) - Final Dosing Weight Weight used for dosin.1 kg Estimated Creatinine Clearance Estimated Creatinine Clearance: 34 ML/MIN Goal Trough Goal Trough: 15-20 mcg/mL Pharmacy Plan for Drug Dosing Pharmacy Plan for Drug Dosing: Starting 24 hours after the E.R. dose, continue with 1250mg IV q24h per [facility] dosing protocol. Check a trough before the 3rd overall dose. Pharmacy Service will continue to monitor and adjust dosing as required. Follow-Up Labs Follow-Up Labs: Trough: Vancomycin Date/Time Labs Ordered Labs to be done on [date and time ordered]: 06/13/24 04:30
[2024-06-11 16:38] LABS: Partial Thromboplast Time 158.4 Seconds (24.1-36.2)
[2024-06-11] MEDS: Acetaminophen 325 MG Tablet 650 MG PO ×2 (16:47→22:15)
[2024-06-11] MEDS: oxyCODONE 5 MG Tablet PO (18:02)
[2024-06-11] MEDS: metroNIDAZOLE 500 MG/100 ML BAG 100 MG IV (20:30)
[2024-06-11] MEDS: Atorvastatin Calcium 10 MG Tablet PO (21:52)
[2024-06-12] VITALS (13 sets, daily range): BP systolic 94–138; BP diastolic 50–77; PULSE 80–96; RESP 14–22; TEMP 36.1–36.7; O2SAT 93–97; BMI 26.9
[2024-06-12 01:15] LABS: Partial Thromboplast Time 81.8 Seconds (24.1-36.2)
[2024-06-12] MEDS: 0.9% Saline Lock 10 ML Syringe IV (04:31)
[2024-06-12] MEDS: Vancomycin HCl 1,250 MG in 0.9% Normal Saline (250mL Bag) 250 ML 167 MG IV (04:32)
[2024-06-12 04:53] LABS: Absolute Lymphocyte Count 0.41 X10^3/uL (0.83-4.51); Absolute Neutrophil Count 4.8 X10^3/uL (2.0-7.7); Basophil# 0.01 X10^3/uL; Basophil% 0.2 % (0-1); Eosinophil# 0.01 X10^3/uL; Eosinophils% 0.2 % (0-5); Hematocrit 24.7 % (40-54); Hemoglobin 8.5 g/dL (13.0-16.5); Lymphocyte # 0.41 X10^3/ul (0.83-4.51); Lymphocyte % 6.9 % (19-41); Mean Corp Hgb Conc 34.4 g/dL (32-36); Mean Corpuscular Hgb 34.4 pg (27.0-32.0); Mean Platelet Vol. 10.5 fl (6.2-12.0); Monocyte# 0.66 X10^3/uL; Monocyte% 11.1 % (0-10); NRBC Flagged by Analyzer 0 % (0-5); Neutrophil # 4.83 X10^3/uL (2.7-7.7); Neutrophil % 81.4 % (47-70); POSITIVE DIFFERENTIAL YES; POSITIVE MORPHOLOGY YES; Platelet Count 164 K/mm3 (150-450); RBC Distribution Width CV 13.1 % (11.6-14.6); RBC Distribution Width SD 47.7 fl (35.1-43.9); Red Blood Count 2.47 M/mm3 (4.6-6.2); White Blood Count 5.9 K/mm3 (4.4-11.0)
[2024-06-12 05:08] LABS: Anion Gap 8 (5-15); BUN 38 mg/dL (7-18); BUN/Creat Ratio 21.8 RATIO (10-20); Calcium,Total 8.1 mg/dL (8.5-10.1); Chloride 107 mmol/L (98-107); Creatinine, Serum 1.74 mg/dL (0.70-1.30); EST Glomerular Filtration Rate 42 mL/min (>60); Est Glom Filt Rate - Afr Amer 50 mL/min (>60); Estimated Creatinine Clearance 40.63 ml/min; Glucose 130 mg/dL (74-106); Potassium 4.3 mmol/L (3.5-5.1); Sodium Level 136 mmol/L (136-145)
[2024-06-12 05:29] LABS: Differential Indicated SCAN CRITERIA MET
[2024-06-12 05:30] LABS: Differential Comment SCANNED
[2024-06-12] MEDS: metroNIDAZOLE 500 MG/100 ML BAG 100 MG IV (06:48)
--- NOTE | 2024-06-12 07:50 | PCM.PN.INT ---
Assessment & Plan Assessment/Plan (1) Hypovolemic shock: PLAN: Plan RECOMMENDATIONS: 1. Continue cefepime, pending finalized culture results. Okay to discontinue Flagyl and vancomycin. 2. Send type and screen. 3. Continue PPI therapy. 4. If lower extremity Doppler study is negative, discontinue heparin infusion. 5. Encourage incentive spirometer use and mobilize patient as tolerated. 6. The patient is medically stable for transfer out of the intensive care unit. IMPRESSIONS: 1. Hypovolemic shock Presumed secondary to presenting diarrheal illness, which is now improved. Although patient did require vasopressor support, with IV fluid resuscitation, the patient's hemodynamic status improved. He was ultimately weaned from Levophed yesterday. The patient remains hemodynamically stable. At this time, given that blood and urine cultures are still pending, okay with continuing cefepime. However, vancomycin and Flagyl can be discontinued from my perspective. If cultures remain negative tomorrow, all antibiotics can be discontinued. 2. Anemia The patient presented to the hospital with a hemoglobin of 12.6 g/dL, which has dropped to 8.5 g/dL this morning. There are no overt signs of any blood loss. Will plan to send type and screen this morning. If lower extremity Doppler study is negative, recommend discontinuation of heparin infusion. Continue PPI therapy. Continue to monitor blood counts and transfuse if hemoglobin drops below 7 g/dL. 3. Acute on chronic kidney disease Prerenal in etiology in the setting of #1. Creatinine has improved with volume expansion. Continue to monitor urine output. No current indication for renal replacement therapy. 4. Recent knee replacement surgery/coronary artery disease/hypertension/hyperlipidemia Complicates care, management, recovery and prognosis. Low suspicion for knee infection per orthopedic surgery. Continue home medications as indicated. Okay to advance diet. Physical therapy to work with the patient. This note was generated with [employer] dictation software. It may contain incorrect words, spelling, and punctuation that were not noted in checking the note before signing. Subjective Subjective The patient was seen and examined at the bedside this morning. Events from the last 24 hours have been reviewed. The patient is currently afebrile, hemodynamically stable and maintaining appropriate oxygen saturations on room air. The patient was able to be weaned off of Levophed yesterday afternoon. The patient is documented to be overall net +5.3 L for the hospitalization. White blood cell count is normal. Hemoglobin is dropped to 8.5 g/dL with a platelet count of 164,000. Creatinine has improved to 1.74. Objective Data Objective Data The patient's most recent lab work, culture data and imaging studies have all been personally reviewed. Blood and urine cultures are pending. Vital Signs: Vital Signs Temp Pulse Resp BP Pulse Ox O2 Del Method 97.8 F 93 18 124/66 H 94 Room Air 06/12/24 04:00 06/12/24 06:00 06/12/24 06:00 06/12/24 06:00 06/12/24 06:00 06/12/24 06:00 Oxygen Delivery Method Room Air Weight: 181 lb 14.102 oz Body Mass Index (BMI) 26.9 Intake & Output: Intake and Output for Last 24 Hours 06/10/24 06/11/24 06/12/24 23:59 23:59 23:59 Intake Total 500 / 500 5364.56 / 5364.56 324.05 / 324.05 Output Total 800 / 800 0 / 0 Balance 500 / 500 4564.56 / 4564.56 324.05 / 324.05 Lab / Micro Data Attestation: I reviewed the patient's lab results. 06/12/24 04:35 06/12/24 04:35 Labs: Laboratory Results - last 24 hr 06/11/24 06:25: Platelet Estimate A, Sodium 134 L, Potassium 4.3, Chloride 106, Carbon Dioxide 19.0 L, Anion Gap 9, BUN 37 H, Creatinine 2.10 H, Estim Creat Clear Calc 33.67, Est GFR (MDRD) Af Amer 41 L, Est GFR (MDRD) Non-Af 34 L, BUN/Creatinine Ratio 17.6, Glucose 122 H, Hemoglobin A1c 5.2, Calcium 8.6, Phosphorus 4.1, Magnesium 2.7 H, Iron 7 L, TIBC 273, Iron Saturation 2.6 L, Ferritin 374, Total Bilirubin 1.70 H, AST 32, ALT 27, Alkaline Phosphatase 43 L, C-React Prot Ext Range 147.00 H, Total Protein 5.4 L, Albumin 2.6 L, Globulin 2.8, Albumin/Globulin Ratio 0.9, Folate 24.00 06/11/24 08:06: Urine Color Araceli, Urine Clarity Sl. Cloudy, Urine pH 5.0, Ur Specific [place] 1.015, Urine Protein 30 H, Urine Glucose (UA) Normal, Urine Ketones 15 H, Urine Occult Blood 10 H, Urine Nitrite Negative, Urine Bilirubin 3 H, Urine Urobilinogen 4 H, Ur Leukocyte Esterase 100 H, Urine RBC 0-5 SEEN, Urine WBC 0-5 SEEN, Ur Squamous Epith Cells 0 SEEN, Amorphous Sediment 1+ URATE, Urine Bacteria 0 SEEN, Hyaline Casts 0-5 SEEN, Urine Mucus 0 SEEN 06/11/24 08:20: PT 15.5 H, INR 1.2, APTT 33.3 06/11/24 08:50: Troponin I High Sens 44 06/11/24 13:10: Troponin I High Sens 32 06/11/24 16:00: APTT 158.4 H* 06/12/24 00:50: APTT 81.8 H 06/12/24 04:35: WBC 5.9, RBC 2.47 L, Hgb 8.5 L, Hct 24.7 L, MCV 100.0 H, MCH 34.4 H, MCHC 34.4, RDW Std Deviation 47.7 H, RDW Coeff of Tangela 13.1, Plt Count 164, MPV 10.5, Immature Gran % (Auto) 0.200, Neut % (Auto) 81.4 H, Lymph % (Auto) 6.9 L, [place] % (Auto) 11.1 H, Eos % (Auto) 0.2, Baso % (Auto) 0.2, Absolute Neuts (auto) 4.8, Absolute Lymphs (auto) 0.41 L, Nucleated RBC % 0, Differential Comment SCANNED, Sodium 136, Potassium 4.3, Chloride 107, Carbon Dioxide 21.0, Anion Gap 8, BUN 38 H, Creatinine 1.74 H, Estim Creat Clear Calc 40.63, Est GFR (MDRD) Af Amer 50 L, Est GFR (MDRD) Non-Af 42 L, BUN/Creatinine Ratio 21.8 H, Glucose 130 H, Calcium 8.1 L Micro: Microbiology 06/11/24 13:00 Stool Stool Lactoferrin - Final 06/11/24 08:00 Nasal Secretion MRSA (PCR) - Final Physical Exam Const alert, oriented x3 and no apparent distress General Appearance: cooperative HEENT normocephalic, head/scalp atraumatic and moist oral mucous membranes Eyes PERRL, EOMs intact bilaterally and conjunctivae normal Neck supple General: trachea midline Chest inspection of chest normal Resp normal respiratory effort Auscultation: Negative for rales, rhonchi or wheezes Cardio regular rate and regular rhythm GI normal to inspection, nondistended, normoactive bowel sounds Extremity Extremity Narrative: Left knee post surgical ecchymoses and incisional dressing in place. General Extremity: Negative for clubbing Neuro CN's II-XII intact bilaterally, moves all extremities and no focal motor deficits Psych cooperative and affect normal Charges/Coding Visit Charges Inpatient E&M: 13018 Subs Hosp L3
[2024-06-12 07:59] LABS: Vitamin B12 200 pg/mL (211-911)
[2024-06-12 08:21] LABS: Partial Thromboplast Time 52.3 Seconds (24.1-36.2)
[2024-06-12] MEDS: Pantoprazole Sodium 40 MG in 0.9% Normal Saline (100mL MB+) 100 ML 330 MG IV ×2 (09:00→21:47)
[2024-06-12] MEDS: Menthol/Lanolin/Calamine/Znox 113 GM Tube 1 APPLIC TOPICAL ×2 (09:01→21:42)
[2024-06-12] MEDS: Aspirin E.C. 81 MG Tablet PO (09:01)
[2024-06-12] MEDS: Heparin Injection (Vial) 5,000 UNIT/ML VIAL IV (09:02)
[2024-06-12] MEDS: Acetaminophen 325 MG Tablet 650 MG PO (09:09)
[2024-06-12] MEDS: oxyCODONE 5 MG Tablet PO ×3 (09:10→21:47)
--- NOTE | 2024-06-12 09:44 | PCM.PN.HOSP ---
Subjective Subjective Doing well, no issues overnight. He is off of pressors Objective Data Objective Data Vital Signs: Vital Signs Temp Pulse Resp BP Pulse Ox O2 Del Method 98.1 F 96 21 H 127/77 H 96 Room Air 06/12/24 08:00 06/12/24 08:00 06/12/24 08:00 06/12/24 08:00 06/12/24 08:00 06/12/24 08:00 Oxygen Delivery Method Room Air Weight: 181 lb 14.102 oz Body Mass Index (BMI) 26.9 Intake & Output: Intake and Output for Last 24 Hours 06/11/24 06/12/24 06/13/24 03:59 03:59 03:59 Intake Total 3000 / 3000 2913.61 / 2913.61 434.2 / 434.2 Output Total 800 / 800 0 / 0 Balance 3000 / 3000 2113.61 / 2113.61 434.2 / 434.2 Lab / Micro Data 06/12/24 04:35 06/12/24 04:35 Labs: Laboratory Results - last 24 hr 06/11/24 06:25: Vitamin B12 200 L 06/11/24 08:06: Urine RBC 0-5 SEEN, Urine WBC 0-5 SEEN, Ur Squamous Epith Cells 0 SEEN, Amorphous Sediment 1+ URATE, Urine Bacteria 0 SEEN, Hyaline Casts 0-5 SEEN, Urine Mucus 0 SEEN 06/11/24 13:10: Troponin I High Sens 32 06/11/24 16:00: APTT 158.4 H* 06/12/24 00:50: APTT 81.8 H 06/12/24 04:35: WBC 5.9, RBC 2.47 L, Hgb 8.5 L, Hct 24.7 L, MCV 100.0 H, MCH 34.4 H, MCHC 34.4, RDW Std Deviation 47.7 H, RDW Coeff of Tangela 13.1, Plt Count 164, MPV 10.5, Immature Gran % (Auto) 0.200, Neut % (Auto) 81.4 H, Lymph % (Auto) 6.9 L, [place] % (Auto) 11.1 H, Eos % (Auto) 0.2, Baso % (Auto) 0.2, Absolute Neuts (auto) 4.8, Absolute Lymphs (auto) 0.41 L, Nucleated RBC % 0, Differential Comment SCANNED, Sodium 136, Potassium 4.3, Chloride 107, Carbon Dioxide 21.0, Anion Gap 8, BUN 38 H, Creatinine 1.74 H, Estim Creat Clear Calc 40.63, Est GFR (MDRD) Af Amer 50 L, Est GFR (MDRD) Non-Af 42 L, BUN/Creatinine Ratio 21.8 H, Glucose 130 H, Calcium 8.1 L 06/12/24 07:55: APTT 52.3 H Micro: Microbiology 06/11/24 13:00 Stool Stool Lactoferrin - Final 06/11/24 08:00 Nasal Secretion MRSA (PCR) - Final Physical Exam Narrative General: Alert, Oriented x3, Cooperative, No apparent distress HEENT: Atraumatic, PERRLA, EOMI, Normocephalic Oral: Moist Mucosa Neck: Supple, No JVD Lungs: Diminished, Normal air movement, No rhonchi, No wheeze, No rales Cardiovascular: Regular rate, Regular Rhythm, Normal S1, Normal S2, No murmurs Abdomen: Soft, Non Tender, Non-Distended, No Hepato-splenomegaly Extremities: No edema, Capillary Refill Less than 3 Seconds Skin: Left knee dressing in place Musculoskeletal: No Tenderness to Palpation of Joints or Extremities Neurological: No focal neurological deficits, Motor Exam 5/5 strength throughout, Sensory exam intact to light touch and pain Psych/Mental Status: Normal Affect, Appropriate Assessment & Plan Assessment/Plan (1) Septic shock: PLAN: Plan 1. Shock most likely septic with exact focus of infection unclear but possible soft tissue/knee joint ordered distributive shock: Patient recently had left TKR on 06/08. The patient presented with sepsis with clinical indicators of tachycardia, low-grade fever, tachypnea due to exact focus of infection with acute sepsis-related organ dysfunction as evidenced by IV fluid unresponsive hypotension requiring vasopressor and lactic acidosis. Patient on IV cefepime and vancomycin. Orthopedic surgery, Dr. Whitfield consulted and notified. Left knee x-ray initially reviewed and shows no suspicious bone lesion or fracture, normal alignment, no effusion but soft tissue swelling. ID also consulted Discussed with the orthopedic PA after I notified orthopedic surgeon Dr. Whitfield. He saw the patient. He does not think patient is septic knee Doppler ultrasound elopement note obtained urine. He tried to aspirate left knee but it was applied. He recommends 81 mg aspirin twice daily for 4 weeks postoperatively. Patient has ecchymosis around left knee. He also said that patient fell down after surgery. Conveyor Line Battery Charger note reviewed. Empiric coverage with IV cefepime and vancomycin. Advised p.o. midodrine 10 mg every 8 hours if MAP drops. 06/12/2024: Shock is due to hypovolemia, pressors are discontinued with proper resuscitation. This is felt to be due to the diarrheal illness #2. Acute kidney injury on CKD stage IIIa: Suspect admitted to shock but related to GI loss. Baseline creatinine around 1.41. Admitted with BUN/creatinine /2.35. Monitor kidney function. Hold nephrotoxic medication 06/12/2024: Renal function is slowly improving #3. Syncopal Event: Twelve-lead EKG done in the ED shows sinus rhythm. She is preop EKG on 05/19 sinus rhythm with PACs. On the court recording monitor it is A-fib. Twelve-lead EKG ordered. Patient does not have any cardiac or chest comfort including chest pain pressure tightness or shortness of breath. Twelve-lead EKG repeat was done and shows NSR 86 bpm. #4. Abdominal pain, nausea, emesis secondary to significant postoperative constipation with CT imaging with questionable mildly lobulated liver: Continue IV fluid. Patient was started on GoLytely and antibiotic patient to start having very loose bowel movement multiple 4 times. #6. Acute macrocytic anemia, possibly related with mild blood loss given recent operative intervention: Admission H&H 12.6 dropped to 9.8. Preop H&H was 13.1/38% MCV 101. 06/12/2024: Continues to have a drop in his hemoglobin down to 8.5 today. Might be dilutional we will recheck this afternoon #8. Hyperbilirubinemia, mild transaminitis with lobated liver noted: Total bilirubin increased to 2.6, direct 0.69 therefore mainly indirect hyperbilirubinemia. AST 53 mildly elevated ALT and alkaline phosphatase normal. Does not go with ischemic hepatitis may be from surgical history/inflammation or drug-induced. Monitor liver chemistry. CT shows mild lobulated liver and reported cirrhosis, treatment to be effective. On my review, liver does not seem nodular or lobulated therefore less likely cirrhosis but hypoattenuation, fat edema. #9. CAD: Patient with outpatient coronary calcium scoring which is markedly elevated, noted follow-up with cardiology 02/29/2024 with EKG at that time with nonspecific ST changes, recommendation given asymptomatic to obtain stress test and echocardiogram which were performed, 03/13/2024 stress testing unremarkable per review of exercise test report but no obvious final impression noted, echocardiogram 03/13/2024 with EF 60%, mild MVI, mild TBI, mildly dilated aortic root with negative bubble contrast study. Will continue baby aspirin, statin, holding hypertensive regimen as noted. #10. Hypertension: Can resume home meds once stable #11. Hyperlipidemia: Continue patient on statin therapy. #12. Chew tobacco: Encouraged tobacco cessation, nicotine replacement if necessary. DVT: Heparin drip, lower extremity Dopplers pending Charges/Coding Visit Charges Inpatient E&M: 76133 Subs Hosp L2
[2024-06-12] MEDS: Cefepime HCl 2 GM in 0.9% Normal Saline (100mL MB+) 100 ML IV ×2 (10:11→21:48)
[2024-06-12] MEDS: CHLORHEXIDINE GLUC 2% CLOTH 1 EACH TOWELETTE TOPICAL (10:36)
--- NOTE | 2024-06-12 10:41 | PCM.CONS.GEN ---
Assessment & Plan Assessment/Plan (1) Hypovolemic shock: PLAN: L TKA 06/08/24. Cxs neg, no fever, normal wbc, normal esr. Unsuccessful L knee aspiration. Syncope and hypotension may have been related to pain meds, diarrhea after bowel regimen. CT did report cirrhosis and ascites, could consider paracentesis, but overall no clear sign of active infection. On vanc/cefepime currently. Will stop vanc today. Will follow, thank you (2) Status post total left knee replacement: HPI Consult Data Date of Consult: 06/12/24 HPI Narrative Reason for Consultation: shock HPI Narrative: KAYCEE ELLINGTON, is a 68 M with h/o CKD, CAD, had L TKA on 06/08. Had some constipation post-op, took laxatives, developed diarrhea. Had some nausea, lightheadedness, had syncope and fall at home. Taken to ED, admitted to icu with shock, started on vanc/cefepime/flagyl. Feeling better this AM. No fever. No dysuria. Tap attempted of L knee by ortho. No abd pain. Full ROS performed and neg except as noted above. [facility] Medical History Hyperlipidemia Amputation of toe of right foot Internal hemorrhoids without mention of complication Diverticulosis of colon (without mention of hemorrhage) Conrad's cyst Carpal tunnel syndrome Lower back injury Hypertension Home Medications ?Medication ?Instructions ?Recorded ?Last Taken ?Type lisinopril 20 mg tablet 20 mg PO QDAY 02/23/24 Unknown History multivitamin with minerals 1 cap PO QDAY 02/23/24 Unknown History pantoprazole 40 mg tablet,delayed 40 mg PO QDAY 02/23/24 Unknown History release aspirin 81 mg tablet,delayed 81 mg PO QDAY #90 tabs 02/29/24 Unknown Rx release (Adult Aspirin Regimen) cholecalciferol (vitamin D3) 25 25 mcg PO QDAY 02/29/24 Unknown History mcg (1,000 unit) capsule rosuvastatin 5 mg tablet 5 mg PO QDAY 02/29/24 Unknown History carvedilol 6.25 mg tablet 6.25 mg PO BID #180 tabs 04/04/24 Unknown Rx Allergy/AdvReac Type Severity Reaction Status Date / Time terbinafine Allergy Severe Rash Verified 06/10/24 22:48 Family History Mother Congestive heart failure CVA (cerebral vascular accident) Father CAD (coronary artery disease) Brother Myocardial infarction Diabetes Obesity Kidney failure Obstructive sleep apnea Surgical History History of cataract extraction with lens replacement History of hand surgery History of repair of rotator cuff Status post surgical removal of nail matrix of toe of right foot History of lumbar laminectomy Hx of excision of lamina of cervical vertebra for decompression of spinal cord Hx of left knee surgery H/O neck surgery Social History household members: spouse Smoking Status: Never smoker Smokeless tobacco user: chewing tobacco and other Electronic Cigarette Use: not used alcohol intake: current alcohol intake frequency: a few times a week Alcohol type: beer details: (2) CANS OF BEER (12OZ) PER WEEK Physical Exam Const alert, oriented x3 and no apparent distress General Appearance: cooperative HEENT normocephalic and head/scalp atraumatic Eyes PERRL and EOMs intact bilaterally Neck supple and No nodes Resp normal air movement and clear to auscultation bilaterally Cardio regular rate; Negative for regular rhythm GI soft to palpation, non-tender and non-distended Extremity Extremity Narrative: L knee General Extremity: edema Skin Skin Narrative: Some bruising/redness around L knee Neuro CN's II-XII intact bilaterally Lab / Micro Data Attestation: I reviewed the patient's lab results. 06/12/24 04:35 06/12/24 04:35 Labs: Laboratory Results - last 24 hr 06/11/24 06:25: Vitamin B12 200 L 06/11/24 13:10: Troponin I High Sens 32 06/11/24 16:00: APTT 158.4 H* 06/12/24 00:50: APTT 81.8 H 06/12/24 04:35: WBC 5.9, RBC 2.47 L, Hgb 8.5 L, Hct 24.7 L, MCV 100.0 H, MCH 34.4 H, MCHC 34.4, RDW Std Deviation 47.7 H, RDW Coeff of Tangela 13.1, Plt Count 164, MPV 10.5, Immature Gran % (Auto) 0.200, Neut % (Auto) 81.4 H, Lymph % (Auto) 6.9 L, [place] % (Auto) 11.1 H, Eos % (Auto) 0.2, Baso % (Auto) 0.2, Absolute Neuts (auto) 4.8, Absolute Lymphs (auto) 0.41 L, Nucleated RBC % 0, Differential Comment SCANNED, Sodium 136, Potassium 4.3, Chloride 107, Carbon Dioxide 21.0, Anion Gap 8, BUN 38 H, Creatinine 1.74 H, Estim Creat Clear Calc 40.63, Est GFR (MDRD) Af Amer 50 L, Est GFR (MDRD) Non-Af 42 L, BUN/Creatinine Ratio 21.8 H, Glucose 130 H, Calcium 8.1 L 06/12/24 07:55: APTT 52.3 H Micro: Microbiology 06/12/24 09:20 Mucosa - Nose SARS-CoV-2, Influenza & RSV (PCR) - Final 06/11/24 13:00 Stool Stool Lactoferrin - Final 06/11/24 08:00 Nasal Secretion MRSA (PCR) - Final
--- NOTE | 2024-06-12 11:50 | CASEMGMT ---
ASPEN LEACH Assessment: Face to Face with pt for initial transition planning/care coordination assessment. RN HANY introduced self and role at [facility], pt voices understanding and consents to assessment. Pt is A&O x4 and answers all questions appropriately at this time. Pt lying in bed in no distress. Care providers, pharmacy, and demographics verified/updated. Strata: 1 Admitting Dx: Shock, SIRS, KIMBERLY, Syncopal event, Constipation PCP: [facility] Specialists: FERNIE; Urologist, [facility]; Guillaume Chappell Pharmacy: [facility] Insurance: [employer] [facility] Prescription Benefit: yes LNOK: , Marianela Living Arrangements: Pt lives with in a 1 level home with 3 steps to enter. ADLs: Pt I at baseline. Transportation: Pt drives self and denies concerns with transportation. DME: shower bench, walker, cane, crutches HHC/SNF: Denies Hx of. Pt states no concerns with going home at time of dc. Pt states no further concerns/needs. CM to follow. Advised pt to ask CM if any further question/concerns/needs arise, voices understanding. Pt Goal: Home Plan: Home, continue with OP therapy. Follow for safe DC plan. Trino LOUISE CM
--- NOTE | 2024-06-12 12:34 | PN.ORTHO_ITS ---
Subjective Subjective The patient was sitting in bed upon examination with present. Patient denies any chest pain, shortness of breath, dizziness, lightheadedness, nausea or vomiting, or calf pain. Pain is controlled on medications. No adverse overnight events. Patient is doing well with regards to his left knee. Aspiration was attempted yesterday which we did not get any synovial fluid. Only very small drops of blood. No purulence. Left leg continues to improve with swelling. He had a left lower extremity Doppler ultrasound which was negative. At home patient was having constipation and hypotension. Patient did have a syncopal episode in which he fell. He thinks he hit his knee during that fall. Patient states the knee feels better today. Case was discussed with the nursing staff. Patient currently is being treated with infectious disease and ICU staff. They are transferring over to the PCU. Patient has responded well with fluids. Per infectious disease documentation they will be stopping the vancomycin today. Blood cultures and urine culture are still pending. There is a very low suspicion of septic knee. I also discussed with Dr. Paul air/ocean export clerk and feels patient's symptoms are secondary to hypovolemic shock. Patient has had IV fluids. Patient has been weaned off the Levophed. He does remain hemodynamically stable at this time. Objective Data Objective Data Vital Signs: Vital Signs Temp Pulse Resp BP Pulse Ox O2 Del Method 98.1 F 96 21 H 127/77 H 96 Room Air 06/12/24 08:00 06/12/24 08:00 06/12/24 08:00 06/12/24 08:00 06/12/24 09:00 06/12/24 09:00 Oxygen Delivery Method Room Air Weight: 82.5 kg Body Mass Index (BMI) 26.9 Intake & Output: Intake and Output for Last 24 Hours 06/10/24 06/11/24 06/12/24 23:59 23:59 23:59 Intake Total 500 / 500 5364.56 / 5364.56 703.60 / 703.60 Output Total 800 / 800 0 / 0 Balance 500 / 500 4564.56 / 4564.56 703.60 / 703.60 Lab / Micro Data 06/12/24 04:35 06/12/24 04:35 Labs: Laboratory Results - last 24 hr 06/11/24 06:25: Vitamin B12 200 L 06/11/24 08:06: Urine Color Araceli, Urine Clarity Sl. Cloudy, Urine pH 5.0, Ur Specific [place] 1.015, Urine Protein 30 H, Urine Glucose (UA) Normal, Urine Ketones 15 H, Urine Occult Blood 10 H, Urine Nitrite Negative, Urine Bilirubin 3 H, Urine Urobilinogen 4 H, Ur Leukocyte Esterase 100 H, Urine RBC 0-5 SEEN, Urine WBC 0-5 SEEN, Ur Squamous Epith Cells 0 SEEN, Amorphous Sediment 1+ URATE, Urine Bacteria 0 SEEN, Hyaline Casts 0-5 SEEN, Urine Mucus 0 SEEN 06/11/24 13:10: Troponin I High Sens 32 06/11/24 16:00: APTT 158.4 H* 06/12/24 00:50: APTT 81.8 H 06/12/24 04:35: WBC 5.9, RBC 2.47 L, Hgb 8.5 L, Hct 24.7 L, MCV 100.0 H, MCH 34.4 H, MCHC 34.4, RDW Std Deviation 47.7 H, RDW Coeff of Tangela 13.1, Plt Count 164, MPV 10.5, Immature Gran % (Auto) 0.200, Neut % (Auto) 81.4 H, Lymph % (Auto) 6.9 L, [place] % (Auto) 11.1 H, Eos % (Auto) 0.2, Baso % (Auto) 0.2, Absolute Neuts (auto) 4.8, Absolute Lymphs (auto) 0.41 L, Nucleated RBC % 0, Differential Comment SCANNED, Sodium 136, Potassium 4.3, Chloride 107, Carbon Dioxide 21.0, Anion Gap 8, BUN 38 H, Creatinine 1.74 H, Estim Creat Clear Calc 40.63, Est GFR (MDRD) Af Amer 50 L, Est GFR (MDRD) Non-Af 42 L, BUN/Creatinine Ratio 21.8 H, Glucose 130 H, Calcium 8.1 L 06/12/24 07:55: APTT 52.3 H Micro: Microbiology 06/11/24 08:06 Urine, Clean Catch Urine Culture - Preliminary Gram positive organism 06/12/24 09:20 Mucosa - Nose SARS-CoV-2, Influenza & RSV (PCR) - Final 06/11/24 13:00 Stool Stool Lactoferrin - Final 06/11/24 08:00 Nasal Secretion MRSA (PCR) - Final Physical Exam Narrative Vital signs stable and afebrile. Blood pressure readings are more stable. Patient is able to plantarflex and dorsiflex actively. Sensation is intact to light touch to saphenous, sural, superficial and deep peroneal, and tibial distribution. Dressing is clean dry and intact. Surrounding ecchymosis to the left knee. Left lower leg edema improving Negative Homans right but does complain of some left calf soreness, negative signs and symptoms of DVT. Const alert, oriented x3 and no apparent distress General Appearance: cooperative and comfortable Assessment & Plan Assessment/Plan (1) Status post total left knee replacement: PLAN: Plan 1. Status post left robotic assisted total knee arthroplasty POD #4: Surgical date June 08, 2024 2. Pain control: Postoperatively patient has been using Tylenol and oxycodone. Patient can use oxycodone 5 mg 1-2 tablets as needed. I would recommend monitoring blood pressure. 3. DVT prophylaxis: Doppler ultrasound was negative for DVT. Orthopedics recommends aspirin 81 mg twice daily for 4 weeks postoperatively. 4. Status post acute blood loss anemia versus dilutional component. Initial labs in the emergency room hemoglobin of 12.6. Preoperative hemoglobin 13.1. Today patient's hemoglobin currently 8.5. I do feel there is some dilutional component. his vitals are stable and he is asymptomatic. Denies to me any lightheadedness or dizziness. 5. Dressing: Current Mepilex dressing clean dry and intact without any drainage. Recommend removal on June 18, 2024 6. Left knee aspiration: Left knee aspiration was attempted under sterile conditions yesterday which was unsuccessful. Only had few drops of dark red blood. Clinically low suspicion for any septic knee. Knee symptoms appear stable. His pain is controlled. 7. Physical therapy/Occupational Therapy: Currently no orthopedic restrictions with regards to left knee other than using walker for ambulatory assistance. Range of motion as tolerated. 8. Continue postoperative medical management per medical team: Appreciate recommendations from medical standpoint. 9. Consultation infectious disease: Appreciate recommendations from infectious disease. Per documentation vancomycin will be discontinued today. Patient has had blood cultures and urine cultures which are pending. I would defer to infectious disease for any antibiotics 10. Disposition: From orthopedic standpoint there is a very low suspicion of septic knee. Patient appears to be stable today with regards to the left knee. Discussion with air/ocean export clerk felt symptoms related to hypovolemic shock. Patient has responded well to fluids. I would defer to medicine and infectious disease for continued care while in the hospital. Patient will continue on current pain regimen. Case was discussed in depth with Dr. Ta Whitfield. We will continue to follow. This dictation was created using voice recognition software. Phonetic and/or grammatical errors may exist.
--- NOTE | 2024-06-12 12:39 | CHAPLAIN ---
Type of Pastoral Visit _x__ Initial Visit ___ Follow-up Visit ___ On-call Visit ___ General Patient Visit ___ Spiritual Assessment ___ Family Conference ___ Bereavement ___ Rapid Response ___ Code Blue ___ Other (describe below) Pastoral Care Referral From _x__ Patient ___ Family ___ Nurse ___ Physician ___ Android Framework Developer ___ Curriculum Development Manager ___ Other (describe below) Sacrament/Intervention _x__ Active listening ___ Anointing ___ Episcopal ___ Bereavement ___ Communion ___ Yolanda exploration ___ ___ Life review ___ Prayer ___ Reconciliation ___ Sacrament of Sick _x__ Supportive presence ___ Wedding ___ Other (describe below) Pastoral Comments patient and spouse are in the room; explanation of what happened is given by both; pt had surgery but came back to hospital after low BP developed at home; offered support and prayer but family states that they are coping well and expect things to be fine now
[2024-06-12 13:58] LABS: Hematocrit 25.1 % (40-54); Hemoglobin 8.4 g/dL (13.0-16.5)
[2024-06-12] MEDS: Atorvastatin Calcium 10 MG Tablet PO (21:44)
[2024-06-13 03:30] VITALS: BP 135/80; PULSE 86; RESP 15; TEMP 36.6; O2SAT 95
[2024-06-13] MEDS: oxyCODONE 5 MG Tablet PO ×3 (03:51→20:11)
[2024-06-13 04:13] LABS: Absolute Lymphocyte Count 0.54 X10^3/uL (0.83-4.51); Absolute Neutrophil Count 4.2 X10^3/uL (2.0-7.7); Basophil# 0.02 X10^3/uL; Basophil% 0.4 % (0-1); Eosinophil# 0.06 X10^3/uL; Eosinophils% 1.1 % (0-5); Hemoglobin 7.9 g/dL (13.0-16.5); Lymphocyte # 0.54 X10^3/ul (0.83-4.51); Lymphocyte % 9.8 % (19-41); Mean Corp Hgb Conc 34.3 g/dL (32-36); Mean Corpuscular Hgb 34.1 pg (27.0-32.0); Mean Corpuscular Volume 99.1 fL (80-94); Mean Platelet Vol. 9.7 fl (6.2-12.0); Monocyte# 0.62 X10^3/uL; Monocyte% 11.2 % (0-10); NRBC Flagged by Analyzer 0 % (0-5); Neutrophil # 4.23 X10^3/uL (2.7-7.7); Neutrophil % 76.6 % (47-70); POSITIVE DIFFERENTIAL YES; POSITIVE MORPHOLOGY YES; Platelet Count 179 K/mm3 (150-450); RBC Distribution Width SD 47.1 fl (35.1-43.9); Red Blood Count 2.32 M/mm3 (4.6-6.2); White Blood Count 5.5 K/mm3 (4.4-11.0)
[2024-06-13 04:24] LABS: Differential Indicated SCAN CRITERIA MET
[2024-06-13 04:30] LABS: ALB/GLOB Ratio 0.6 RATIO (0.9-2.4); AST(SGOT) 43 U/L (15-37); Alanine Aminotransfer ALT/SGPT 37 U/L (16-61); Albumin, Serum 2.1 g/dL (3.2-5.0); Alkaline Phosphatase 43 U/L (45-117); Anion Gap 7 (5-15); BUN 23 mg/dL (7-18); BUN/Creat Ratio 22.3 RATIO (10-20); Chloride 106 mmol/L (98-107); Creatinine, Serum 1.03 mg/dL (0.70-1.30); EST Glomerular Filtration Rate 76 mL/min (>60); Est Glom Filt Rate - Afr Amer 92 mL/min (>60); Estimated Creatinine Clearance 68.64 ml/min; Globulin 3.3 g/dL (2.2-4.2); Glucose 122 mg/dL (74-106); Potassium 4.2 mmol/L (3.5-5.1); Protein, Total 5.4 g/dL (6.4-8.2); Sodium Level 136 mmol/L (136-145)
[2024-06-13 05:17] VITALS: BMI 26.2
[2024-06-13 05:23] LABS: Differential Comment SCANNED; Toxic Granulation 2+
--- NOTE | 2024-06-13 08:03 | CASEMGMT ---
SW met with patient and his . Both expressed no concerns with living situation. SDOH entered in error. Lotus Palumbo PAINTING SUPERVISOR KRISTEN
[2024-06-13 08:43] VITALS: BP 151/78; PULSE 92; RESP 10; TEMP 36.4; O2SAT 96
[2024-06-13] MEDS: Pantoprazole Sodium 40 MG in 0.9% Normal Saline (100mL MB+) 100 ML 330 MG IV ×2 (08:44→20:12)
[2024-06-13] MEDS: Aspirin E.C. 81 MG Tablet PO (08:44)
[2024-06-13] MEDS: Menthol/Lanolin/Calamine/Znox 113 GM Tube 1 APPLIC TOPICAL (08:44)
[2024-06-13] MEDS: Cyanocobalamin (B12) 1,000 MCG/ML Vial 1000 MCG IM (09:34)
[2024-06-13] MEDS: Cefepime HCl 2 GM in 0.9% Normal Saline (100mL MB+) 100 ML IV ×2 (09:37→20:54)
--- NOTE | 2024-06-13 10:09 | PCM.PN.ID ---
Physical Exam Narrative Feeling about the same, no abd pain. LLE sore, swollen. No fever. Const alert and no apparent distress General Appearance: cooperative Resp normal air movement and clear to auscultation bilaterally Cardio regular rate and regular rhythm GI soft to palpation, non-tender and non-distended Extremity General Extremity: edema Skin Skin Narrative: no new rash ID ID: Route of nutrition/ use of supplements: [] Nutritional Intake: [] IV Site: [] Vieira Catheter: [] Assessment & Plan Assessment/Plan (1) Hypovolemic shock: PLAN: L TKA 06/08/24. Cxs neg, no fever, normal wbc, normal esr. Unsuccessful L knee aspiration. Syncope and hypotension may have been related to pain meds, diarrhea after bowel regimen. CT did report cirrhosis and ascites, could consider paracentesis, but overall no clear sign of active infection. On cefepime currently. Ucx less than 1k enterococcus-like. Will follow (2) Status post total left knee replacement:
--- NOTE | 2024-06-13 11:38 | PCM.PN.HOSP ---
Subjective Subjective Doing well, no issues overnight Objective Data Objective Data Vital Signs: Vital Signs Temp Pulse Resp BP Pulse Ox O2 Del Method 97.5 F L 92 10 L 151/78 H 96 Room Air 06/13/24 08:43 06/13/24 08:43 06/13/24 08:43 06/13/24 08:43 06/13/24 08:43 06/13/24 08:43 Oxygen Delivery Method Room Air Weight: 177 lb 7.554 oz Body Mass Index (BMI) 26.2 Intake & Output: Intake and Output for Last 24 Hours 06/12/24 06/13/24 06/14/24 03:59 03:59 03:59 Intake Total 2913.61 / 2913.61 1264.55 / 1264.55 760 / 760 Output Total 800 / 800 700 / 700 400 / 400 Balance 2113.61 / 2113.61 564.55 / 564.55 360 / 360 Lab / Micro Data 06/13/24 04:05 06/13/24 04:05 Labs: Laboratory Results - last 24 hr 06/11/24 08:06: Urine Color Araceli, Urine Clarity Sl. Cloudy, Urine pH 5.0, Ur Specific [place] 1.015, Urine Protein 30 H, Urine Glucose (UA) Normal, Urine Ketones 15 H, Urine Occult Blood 10 H, Urine Nitrite Negative, Urine Bilirubin 3 H, Urine Urobilinogen 4 H, Ur Leukocyte Esterase 100 H, Urine RBC 0-5 SEEN, Urine WBC 0-5 SEEN, Ur Squamous Epith Cells 0 SEEN, Amorphous Sediment 1+ URATE, Urine Bacteria 0 SEEN, Hyaline Casts 0-5 SEEN, Urine Mucus 0 SEEN 06/12/24 13:50: Hgb 8.4 L, Hct 25.1 L 06/13/24 04:05: WBC 5.5, RBC 2.32 L, Hgb 7.9 L, Hct 23.0 L, MCV 99.1 H, MCH 34.1 H, MCHC 34.3, RDW Std Deviation 47.1 H, RDW Coeff of Tangela 13.0, Plt Count 179, MPV 9.7, Immature Gran % (Auto) 0.900, Neut % (Auto) 76.6 H, Lymph % (Auto) 9.8 L, [place] % (Auto) 11.2 H, Eos % (Auto) 1.1, Baso % (Auto) 0.4, Absolute Neuts (auto) 4.2, Absolute Lymphs (auto) 0.54 L, Nucleated RBC % 0, Differential Comment SCANNED, Toxic Granulation 2+, Sodium 136, Potassium 4.2, Chloride 106, Carbon Dioxide 22.0, Anion Gap 7, BUN 23 H, Creatinine 1.03, Estim Creat Clear Calc 68.64, Est GFR (MDRD) Af Amer 92, Est GFR (MDRD) Non-Af 76, BUN/Creatinine Ratio 22.3 H, Glucose 122 H, Calcium 8.0 L, Total Bilirubin 0.90, AST 43 H, ALT 37, Alkaline Phosphatase 43 L, Total Protein 5.4 L, Albumin 2.1 L, Globulin 3.3, Albumin/Globulin Ratio 0.6 L Micro: Microbiology 06/13/24 08:50 Stool Stool Occult Blood (SANDY) - Final Occult Blood Positive 06/11/24 08:06 Urine, Clean Catch Urine Culture - Final GPC Poss Enterococcus sp 06/11/24 04:05 Blood Culture (Wb) - Central Line Blood Culture - Preliminary No growth in 48 hours. 06/11/24 03:14 Blood Culture (Wb) - Left Hand Blood Culture - Preliminary No growth in 48 hours. 06/12/24 09:20 Mucosa - Nose SARS-CoV-2, Influenza & RSV (PCR) - Final 06/11/24 13:00 Stool Stool Lactoferrin - Final 06/11/24 08:00 Nasal Secretion MRSA (PCR) - Final Radiography Diagnostic Testing: Radiology Impression Venous Doppler Study 06/11/24 05:38 Interpretation Summary Deep veins of the left lower extremity are patent and compressible segmentally. There is no evidence of left lower extremity deep vein thrombosis. The left great saphenous vein appears patent and compressible segmentally. Ordering Physician: Stephani Soria Referring Physician: MD Bony Finn Performed By: Juliana Ritter RVT Physical Exam Narrative General: Alert, Oriented x3, Cooperative, No apparent distress HEENT: Atraumatic, PERRLA, EOMI, Normocephalic Oral: Moist Mucosa Neck: Supple, No JVD Lungs: Diminished, Normal air movement, No rhonchi, No wheeze, No rales Cardiovascular: Regular rate, Regular Rhythm, Normal S1, Normal S2, No murmurs Abdomen: Soft, Non Tender, Non-Distended, No Hepato-splenomegaly Extremities: No edema, Capillary Refill Less than 3 Seconds Skin: Left knee dressing in place Musculoskeletal: No Tenderness to Palpation of Joints or Extremities Neurological: No focal neurological deficits, Motor Exam 5/5 strength throughout, Sensory exam intact to light touch and pain Psych/Mental Status: Normal Affect, Appropriate Assessment & Plan Assessment/Plan (1) Septic shock: PLAN: Plan 1. Distributive shock: Patient recently had left TKR on 06/08. The patient presented with sepsis with clinical indicators of tachycardia, low-grade fever, tachypnea due to exact focus of infection with acute sepsis-related organ dysfunction as evidenced by IV fluid unresponsive hypotension requiring vasopressor and lactic acidosis. Patient on IV cefepime and vancomycin. Orthopedic surgery, Dr. Whitfield consulted and notified. Left knee x-ray initially reviewed and shows no suspicious bone lesion or fracture, normal alignment, no effusion but soft tissue swelling. ID also consulted Discussed with the orthopedic PA after I notified orthopedic surgeon Dr. Whitfield. He saw the patient. He does not think patient is septic knee Doppler ultrasound elopement note obtained urine. He tried to aspirate left knee but it was applied. He recommends 81 mg aspirin twice daily for 4 weeks postoperatively. Patient has ecchymosis around left knee. He also said that patient fell down after surgery. Market Research Senior Project Manager note reviewed. Empiric coverage with IV cefepime and vancomycin. Advised p.o. midodrine 10 mg every 8 hours if MAP drops. 06/12/2024: Shock is due to hypovolemia, pressors are discontinued with proper resuscitation. This is felt to be due to the diarrheal illness #2. Acute kidney injury on CKD stage IIIa: Suspect admitted to shock but related to GI loss. Baseline creatinine around 1.41. Admitted with BUN/creatinine 31/2.35. Monitor kidney function. Hold nephrotoxic medication 06/12/2024: Renal function is slowly improving #3. Syncopal Event: Twelve-lead EKG done in the ED shows sinus rhythm. She is preop EKG on 05/19 sinus rhythm with PACs. On the manager monitoring it is A-fib. Twelve-lead EKG ordered. Patient does not have any cardiac or chest comfort including chest pain pressure tightness or shortness of breath. Twelve-lead EKG repeat was done and shows NSR 86 bpm. #4. Abdominal pain, nausea, emesis secondary to significant postoperative constipation with CT imaging with questionable mildly lobulated liver: Continue IV fluid. Patient was started on GoLytely and antibiotic patient to start having very loose bowel movement multiple 4 times. #6. Acute macrocytic anemia, possibly related with mild blood loss given recent operative intervention: Admission H&H 12.6 dropped to 9.8. Preop H&H was 13.1/38% MCV 101. 06/12/2024: Continues to have a drop in his hemoglobin down to 8.5 today. Might be dilutional we will recheck this afternoon 06/13/2024: continue with PPI, his vitamin B12 is low at 200 will be replaced however is fecal occult is also positive so placement clear liquid diet and consult G.I. for possible scope #8. Hyperbilirubinemia, mild transaminitis with lobated liver noted: Total bilirubin increased to 2.6, direct 0.69 therefore mainly indirect hyperbilirubinemia. AST 53 mildly elevated ALT and alkaline phosphatase normal. Does not go with ischemic hepatitis may be from surgical history/inflammation or drug-induced. Monitor liver chemistry. CT shows mild lobulated liver and reported cirrhosis, treatment to be effective. On my review, liver does not seem nodular or lobulated therefore less likely cirrhosis but hypoattenuation, fat edema. #9. CAD: Patient with outpatient coronary calcium scoring which is markedly elevated, noted follow-up with cardiology 02/29/2024 with EKG at that time with nonspecific ST changes, recommendation given asymptomatic to obtain stress test and echocardiogram which were performed, 03/13/2024 stress testing unremarkable per review of exercise test report but no obvious final impression noted, echocardiogram 03/13/2024 with EF 60%, mild MVI, mild TBI, mildly dilated aortic root with negative bubble contrast study. Will continue baby aspirin, statin, holding hypertensive regimen as noted. #10. Hypertension: Can resume home meds once stable #11. Hyperlipidemia: Continue patient on statin therapy. #12. Chew tobacco: Encouraged tobacco cessation, nicotine replacement if necessary. DVT: Heparin drip, lower extremity Dopplers pending Charges/Coding Visit Charges Inpatient E&M: 48203 Subs Hosp L2
--- NOTE | 2024-06-13 12:49 | NURSING ---
Pt refused cornelio hose on Left leg stating that its too painful.
[2024-06-13 15:07] VITALS: BP 151/86; PULSE 80; RESP 18; TEMP 36.6; O2SAT 96
--- NOTE | 2024-06-13 15:44 | EX.PCM.CON.G ---
HPI Consult Data Date of Consult: 06/13/24 HPI Narrative Reason for Consultation: Anemia HPI Narrative: KAYCEE ELLINGTON, is a 68 M who admitted with near syncope symptoms lightheadedness and dizziness on 06/09 night and then to syncope on 06/10, losing consciousness. Low-grade fever on Percocet. He was diagnosed with septic shock possibly secondary to an infected total knee replacement done on 06/16/2024. Orthopedic surgery, Dr. Whitfield consulted and notified. Left knee x-ray initially reviewed and shows no suspicious bone lesion or fracture, normal alignment, no effusion but soft therefore ID also consulted. Etiology of sepsis is not known. He has been on broad antibiotic coverage. I was asked to see him due to worsening anemia. When he presented to the hospital his hemoglobin was 12.6 and dropped down to 9.8. He was also noted to be Hemoccult positive stool. He did have a mild increase in his bilirubin of 2.6 which was mostly indirect with a mild elevation in AST at 53 and normal alkaline phosphatase. CT imaging with questionable mildly lobulated liver. Clinically hospitalist did not think he had cirrhosis. I was asked to see him due to the acute blood loss anemia [facility] Medical History Hyperlipidemia Amputation of toe of right foot Internal hemorrhoids without mention of complication Diverticulosis of colon (without mention of hemorrhage) Conrad's cyst Carpal tunnel syndrome Lower back injury Hypertension Home Medications ?Medication ?Instructions ?Recorded ?Last Taken ?Type lisinopril 20 mg tablet 20 mg PO QDAY 02/23/24 Unknown History multivitamin with minerals 1 cap PO QDAY 02/23/24 Unknown History pantoprazole 40 mg tablet,delayed 40 mg PO QDAY 02/23/24 Unknown History release aspirin 81 mg tablet,delayed 81 mg PO QDAY #90 tabs 02/29/24 Unknown Rx release (Adult Aspirin Regimen) cholecalciferol (vitamin D3) 25 25 mcg PO QDAY 02/29/24 Unknown History mcg (1,000 unit) capsule rosuvastatin 5 mg tablet 5 mg PO QDAY 02/29/24 Unknown History carvedilol 6.25 mg tablet 6.25 mg PO BID #180 tabs 04/04/24 Unknown Rx Allergy/AdvReac Type Severity Reaction Status Date / Time terbinafine Allergy Severe Rash Verified 06/10/24 22:48 Family History Mother Congestive heart failure CVA (cerebral vascular accident) Father CAD (coronary artery disease) Brother Myocardial infarction Diabetes Obesity Kidney failure Obstructive sleep apnea Surgical History History of cataract extraction with lens replacement History of hand surgery History of repair of rotator cuff Status post surgical removal of nail matrix of toe of right foot History of lumbar laminectomy Hx of excision of lamina of cervical vertebra for decompression of spinal cord Hx of left knee surgery H/O neck surgery Social History household members: spouse Smoking Status: Never smoker Smokeless tobacco user: chewing tobacco and other Electronic Cigarette Use: not used alcohol intake: current alcohol intake frequency: a few times a week Alcohol type: beer details: (2) CANS OF BEER (12OZ) PER WEEK ROS ROS Narrative Admission Review of Systems: CONSTITUTIONAL: No weight loss, fever, chills, + weakness or fatigue. HEENT: LH/dizziness, positional. Eyes: No visual loss, blurred vision, double vision or yellow sclerae. Ears, Nose, Throat: No hearing loss, sneezing, congestion, runny nose or sore throat. SKIN: No rash or itching, lesions, wounds except + status post left knee replacement with various ecchymoses, swelling progressively worsening. CARDIOVASCULAR: + Syncopal event. No chest pain, chest pressure or chest discomfort, palpitations, edema, orthopnea. RESPIRATORY: No shortness of breath, cough or sputum, wheezing, hemoptysis. GASTROINTESTINAL: + anorexia, nausea, vomiting, constipation/lack of bowel movement, abdominal pain, distention. No diarrhea, melena, BRBPR. GENITOURINARY: No dysuria, frequency, urgency or retention. NEUROLOGICAL: + Syncopal event, LH/Dizziness, positional. No headache, paralysis, ataxia, numbness or tingling in the extremities, focal weakness, change in bowel or bladder control, seizure. MUSCULOSKELETAL: + muscle, back pain, joint pain or stiffness. HEMATOLOGIC: + Evidence of anemia. No recent history of easy bleeding/bruising. LYMPHATICS: No enlarged nodes. No history of splenectomy. PSYCHIATRIC: No history of depression or anxiety. ENDOCRINOLOGIC: No reports of sweating, cold or heat intolerance. No polyuria or polydipsia. ALLERGIES: No history of asthma, hives, eczema or rhinitis. Physical Exam Narrative Feeling ok, knee some soreness, no fever, EGD planned Const alert and no apparent distress Resp normal air movement and clear to auscultation bilaterally Cardio regular rate and regular rhythm GI soft to palpation, non-tender and non-distended Skin no rashes or lesions noted Lab / Micro Data 06/14/24 05:00 06/13/24 04:05 Labs: Laboratory Results - last 24 hr 06/14/24 05:00: WBC 6.3, RBC 2.42 L, Hgb 7.9 L, Hct 23.7 L, MCV 97.9 H, MCH 32.6 H, MCHC 33.3, RDW Std Deviation 47.0 H, RDW Coeff of Tangela 13.2, Plt Count 225, MPV 9.7, Immature Gran % (Auto) 0.300, Neut % (Auto) 72.1 H, Lymph % (Auto) 11.5 L, [place] % (Auto) 14.0 H, Eos % (Auto) 1.6, Baso % (Auto) 0.5, Absolute Neuts (auto) 4.6, Absolute Lymphs (auto) 0.73 L, Nucleated RBC % 0, PT 15.2 H, INR 1.2, APTT 39.8 H Assessment & Plan Assessment/Plan (1) Hypovolemic shock: PLAN: Plan 60-year-old gentleman status post total left knee replacement with hypovolemic shock. Unknown etiology. He also has acute blood loss anemia with a hemoglobin from 12.6-9.3 currently 8.5. No overt signs of GI blood loss. Plan is for EGD. Holding heparin. We will also evaluate his upper GI tract to see if there is any signs of cirrhosis. Charges/Coding Visit Charges Inpatient E&M: 88830 Init Hosp L3
--- NOTE | 2024-06-13 16:14 | NURSING ---
pt does not desire to start prep until he speaks to Dr. Llamas. He is concerned about anestheia. Dr Llamas notified.
[2024-06-13] MEDS: Atorvastatin Calcium 10 MG Tablet PO (20:13)
[2024-06-13] MEDS: 0.9% Saline Lock 10 ML Syringe IV (20:13)
[2024-06-13 20:30] VITALS: BP 154/98; PULSE 87; RESP 19; TEMP 36.6; O2SAT 95
--- NOTE | 2024-06-13 22:57 | NURSING ---
Report called to [employer]IST[employer] @ [phone] by this RN
[2024-06-14] VITALS (12 sets, daily range): BP systolic 111–150; BP diastolic 61–84; PULSE 67–100; RESP 15–18; TEMP 36.3–37.3; O2SAT 96–99; BMI 26.4
[2024-06-14] MEDS: oxyCODONE 5 MG Tablet PO ×3 (00:37→18:10)
--- NOTE | 2024-06-14 00:52 | NURSING ---
This RN taking over care at this time.
[2024-06-14 05:50] LABS: Absolute Lymphocyte Count 0.73 X10^3/uL (0.83-4.51); Absolute Neutrophil Count 4.6 X10^3/uL (2.0-7.7); Basophil# 0.03 X10^3/uL; Basophil% 0.5 % (0-1); Eosinophils% 1.6 % (0-5); Hematocrit 23.7 % (40-54); Hemoglobin 7.9 g/dL (13.0-16.5); Lymphocyte # 0.73 X10^3/ul (0.83-4.51); Lymphocyte % 11.5 % (19-41); Mean Corp Hgb Conc 33.3 g/dL (32-36); Mean Corpuscular Hgb 32.6 pg (27.0-32.0); Mean Corpuscular Volume 97.9 fL (80-94); Mean Platelet Vol. 9.7 fl (6.2-12.0); Monocyte# 0.89 X10^3/uL; NRBC Flagged by Analyzer 0 % (0-5); Neutrophil # 4.57 X10^3/uL (2.7-7.7); Neutrophil % 72.1 % (47-70); Platelet Count 225 K/mm3 (150-450); RBC Distribution Width CV 13.2 % (11.6-14.6); Red Blood Count 2.42 M/mm3 (4.6-6.2); White Blood Count 6.3 K/mm3 (4.4-11.0)
[2024-06-14 06:44] LABS: International Normalized Ratio 1.2; Prothrombin Time (Protime)PT. 15.2 SECONDS (11.7-14.9)
[2024-06-14 06:45] LABS: Partial Thromboplast Time 39.8 Seconds (24.1-36.2)
--- NOTE | 2024-06-14 11:02 | PN.HOSP_ITS ---
Subjective Subjective No issues overnight, doing better. Plan for EGD today Objective Data Objective Data Vital Signs: Vital Signs Temp Pulse Resp BP Pulse Ox O2 Del Method 97.3 F L 67 16 136/82 H 98 Room Air 06/14/24 09:19 06/14/24 09:19 06/14/24 09:19 06/14/24 09:19 06/14/24 09:19 06/14/24 09:19 Oxygen Delivery Method Room Air Weight: 178 lb 12.718 oz Body Mass Index (BMI) 26.4 Intake & Output: Intake and Output for Last 24 Hours 06/13/24 06/14/24 06/15/24 03:59 03:59 03:59 Intake Total 1264.55 / 1264.55 970 / 970 Output Total 700 / 700 400 / 400 Balance 564.55 / 564.55 570 / 570 Lab / Micro Data 06/14/24 05:00 06/13/24 04:05 Labs: Laboratory Results - last 24 hr 06/14/24 05:00: WBC 6.3, RBC 2.42 L, Hgb 7.9 L, Hct 23.7 L, MCV 97.9 H, MCH 32.6 H, MCHC 33.3, RDW Std Deviation 47.0 H, RDW Coeff of Tangela 13.2, Plt Count 225, MPV 9.7, Immature Gran % (Auto) 0.300, Neut % (Auto) 72.1 H, Lymph % (Auto) 11.5 L, [place] % (Auto) 14.0 H, Eos % (Auto) 1.6, Baso % (Auto) 0.5, Absolute Neuts (auto) 4.6, Absolute Lymphs (auto) 0.73 L, Nucleated RBC % 0, PT 15.2 H, INR 1.2, APTT 39.8 H Micro: Microbiology 06/13/24 08:50 Stool Stool Occult Blood (SANDY) - Final Occult Blood Positive 06/11/24 08:06 Urine, Clean Catch Urine Culture - Final GPC Poss Enterococcus sp 06/11/24 04:05 Blood Culture (Wb) - Central Line Blood Culture - Preliminary No growth in 48 hours. 06/11/24 03:14 Blood Culture (Wb) - Left Hand Blood Culture - Preliminary No growth in 48 hours. 06/12/24 09:20 Mucosa - Nose SARS-CoV-2, Influenza & RSV (PCR) - Final 06/11/24 13:00 Stool Stool Lactoferrin - Final 06/11/24 08:00 Nasal Secretion MRSA (PCR) - Final Physical Exam Narrative General: Alert, Oriented x3, Cooperative, No apparent distress HEENT: Atraumatic, PERRLA, EOMI, Normocephalic Oral: Moist Mucosa Neck: Supple, No JVD Lungs: Diminished, Normal air movement, No rhonchi, No wheeze, No rales Cardiovascular: Regular rate, Regular Rhythm, Normal S1, Normal S2, No murmurs Abdomen: Soft, Non Tender, Non-Distended, No Hepato-splenomegaly Extremities: Left lower extremity edema, Capillary Refill Less than 3 Seconds Skin: Left knee dressing in place Musculoskeletal: No Tenderness to Palpation of Joints or Extremities Neurological: No focal neurological deficits, Motor Exam 5/5 strength throughout, Sensory exam intact to light touch and pain Psych/Mental Status: Normal Affect, Appropriate Assessment & Plan Assessment/Plan (1) Septic shock: PLAN: Plan 1. Distributive shock: Patient recently had left TKR on 06/08. The patient presented with sepsis with clinical indicators of tachycardia, low-grade fever, tachypnea due to exact focus of infection with acute sepsis-related organ dysfunction as evidenced by IV fluid unresponsive hypotension requiring vasopressor and lactic acidosis. Patient on IV cefepime and vancomycin. Orthopedic surgery, Dr. Whitfield consulted and notified. Left knee x-ray initially reviewed and shows no suspicious bone lesion or fracture, normal alignment, no effusion but soft tissue swelling. ID also consulted Discussed with the orthopedic PA after I notified orthopedic surgeon Dr. Whitfield. He saw the patient. He does not think patient is septic knee Doppler ultrasound elopement note obtained urine. He tried to aspirate left knee but it was applied. He recommends 81 mg aspirin twice daily for 4 weeks postoperatively. Patient has ecchymosis around left knee. He also said that patient fell down after surgery. Industrial Gas Servicer Helper note reviewed. Empiric coverage with IV cefepime and vancomycin. Advised p.o. midodrine 10 mg every 8 hours if MAP drops. 06/12/2024: Shock is due to hypovolemia, pressors are discontinued with proper resuscitation. This is felt to be due to the diarrheal illness 06/14/2024: Upper extremity Dopplers negative for DVT #2. Acute kidney injury on CKD stage IIIa: Suspect admitted to shock but related to GI loss. Baseline creatinine around 1.41. Admitted with BUN/creatinine /2.35. Monitor kidney function. Hold nephrotoxic medication 06/12/2024: Renal function is slowly improving #3. Syncopal Event: Twelve-lead EKG done in the ED shows sinus rhythm. She is preop EKG on 05/19 sinus rhythm with PACs. On the security monitor it is A-fib. Twelve-lead EKG ordered. Patient does not have any cardiac or chest comfort including chest pain pressure tightness or shortness of breath. Twelve-lead EKG repeat was done and shows NSR 86 bpm. #4. Abdominal pain, nausea, emesis secondary to significant postoperative constipation with CT imaging with questionable mildly lobulated liver: Continue IV fluid. Patient was started on GoLytely and antibiotic patient to start having very loose bowel movement multiple 4 times. #6. Acute macrocytic anemia, possibly related with mild blood loss given recent operative intervention: Admission H&H 12.6 dropped to 9.8. Preop H&H was 13.1/38% MCV 101. 06/12/2024: Continues to have a drop in his hemoglobin down to 8.5 today. Might be dilutional we will recheck this afternoon 06/13/2024: continue with PPI, his vitamin B12 is low at 200 will be replaced however is fecal occult is also positive so placement clear liquid diet and consult G.I. for possible scope 06/14/2024: Plan for EGD today if negative family would like to prep for colonoscopy during this admission #8. Hyperbilirubinemia, mild transaminitis with lobated liver noted: Total bilirubin increased to 2.6, direct 0.69 therefore mainly indirect hyperbilirubinemia. AST 53 mildly elevated ALT and alkaline phosphatase normal. Does not go with ischemic hepatitis may be from surgical history/inflammation or drug-induced. Monitor liver chemistry. CT shows mild lobulated liver and reported cirrhosis, treatment to be effective. On my review, liver does not seem nodular or lobulated therefore less likely cirrhosis but hypoattenuation, fat edema. #9. CAD: Patient with outpatient coronary calcium scoring which is markedly elevated, noted follow-up with cardiology 02/29/2024 with EKG at that time with nonspecific ST changes, recommendation given asymptomatic to obtain stress test and echocardiogram which were performed, 03/13/2024 stress testing unremarkable per review of exercise test report but no obvious final impression noted, echocardiogram 03/13/2024 with EF 60%, mild MVI, mild TBI, mildly dilated aortic root with negative bubble contrast study. Will continue baby aspirin, statin, holding hypertensive regimen as noted. #10. Hypertension: Can resume home meds once stable #11. Hyperlipidemia: Continue patient on statin therapy. #12. Chew tobacco: Encouraged tobacco cessation, nicotine replacement if necessary. DVT: SCDs Charges/Coding Visit Charges Inpatient E&M: 83914 Subs Hosp L2
[2024-06-14] MEDS: Cefepime HCl 2 GM in 0.9% Normal Saline (100mL MB+) 100 ML IV ×2 (11:15→22:06)
[2024-06-14] MEDS: 0.9% Normal Saline (100mL Bag) 100 ML 15 ML IV (11:19)
[2024-06-14] MEDS: Menthol/Lanolin/Calamine/Znox 113 GM Tube 1 APPLIC TOPICAL ×2 (11:20→21:12)
--- NOTE | 2024-06-14 12:32 | NURSING ---
This RN is aware of Vital Signs that were taken by Estefani Garsia [facility] Sexual Assault Response Coordinator.
[2024-06-14] MEDS: Pantoprazole Sodium 40 MG in 0.9% Normal Saline (100mL MB+) 100 ML 330 MG IV ×2 (13:02→21:09)
--- NOTE | 2024-06-14 14:22 | PCM.PN.ID ---
Physical Exam Narrative Feeling ok, knee some soreness, no fever, EGD planned Const alert and no apparent distress Resp normal air movement and clear to auscultation bilaterally Cardio regular rate and regular rhythm GI soft to palpation, non-tender and non-distended Skin no rashes or lesions noted ID ID: Route of nutrition/ use of supplements: [] Nutritional Intake: [] IV Site: [] Vieira Catheter: [] Assessment & Plan Assessment/Plan (1) Hypovolemic shock: PLAN: L TKA 06/08/24. Cxs neg, no fever, normal wbc, normal esr. Unsuccessful L knee aspiration. Syncope and hypotension may have been related to pain meds, diarrhea after bowel regimen. CT did report cirrhosis and ascites, could consider paracentesis, but overall no clear sign of active infection. On cefepime currently. Ucx less than 1k enterococcus-like. Likely stopping abx soon. Will follow (2) Status post total left knee replacement:
--- NOTE | 2024-06-14 15:00 | EGD_PTH ---
PATIENT: KAYCEE ELLINGTON LOC: [facility] U#:[id number] AGE/SX: 68/M ROOM: [facility] RE06/11/[address]: Dr. Siva Ruiz MD : 1955 BED: 1 DIS: 06/15/2024 SPEC #: [id number] RECD: 06/14/24 18:29 STATUS: JAREN FLORES #: [id number] GISELLA: 06/14/24 15:[address]: Michael Llamas DEPT: SURGICAL PATHOLOGY RECD BY: Les Hurtado ENTERED: 06/15/24 07:03 SP TYPE: EGD BIOPSY OTHR DR: MD Dr. Finn Berkowitz MD Dr. Nicholas F Kotsonis, MD Dr. Prakash Chand, MD Dr. Robert Leininger, MD Dr. Steven Widmer, MD Tissues: Gastric mucous membrane Procedures: Surgery Specimen Level IV HEADER OPERATION: EGD with biopsy PRE-OP DIAGNOSIS: Anemia TISSUE SUBMITTED: Gastric body gastritis body MICROSCOPIC DIAGNOSIS Gastric body, biopsy: Mild gastritis. See microscopic description and comment. 06/16/2024 COMMENT The results of immunohistochemistry for Helicobacter pylori will be reported separately ([id number]). MICROSCOPIC DESCRIPTION Slides are reviewed. The specimen shows fragments of gastric mucosa with chronic inflammatory cell infiltrates in the lamina propria consisting of lymphocytes and plasma cells, consistent with mild chronic gastritis. Changes with reactive gastropathy are also noted. GROSS DESCRIPTION Received in fixative is one container labeled with the patient's name and designated Gastric body biopsy. The specimen consists of two irregular fragments of light zhang soft tissue that in aggregate measure 0.6 x 0.4 x 0.1 cm. The specimen is totally submitted in one cassette. 06/15/2024 TC:3 CPT:92942
--- NOTE | 2024-06-14 15:00 | IMM_PTH ---
PATIENT: KAYCEE ELLINGTON LOC: [facility] U#:[id number] AGE/SX: 68/M ROOM: [facility] RE06/11/[address]: Dr. Siva Ruiz MD : 1955 BED: 1 DIS: 06/15/2024 SPEC #: [id number] RECD: 06/15/24 08:40 STATUS: SOUMoncho REQ #: [id number] GISELLA: 06/14/24 15:[address]: Michael Llamas DEPT: IMMUNOHISTOCHEMISTRY RECD BY: Osmel Epps ENTERED: 06/15/24 08:40 SP TYPE: IMMUNO OTHR DR: MD Dr. Finn Berkowitz MD Dr. Nicholas F Kotsonis, MD Dr. Prakash Chand, MD Dr. Robert Leininger, MD Dr. Steven Widmer, MD Tissues: Gastric mucous membrane Procedures: H Pylori (initial) PHYSICIAN & INSTITUTION [place] [address] SPECIMEN INFORMATION: Tissue Source: Gastric body biopsy Clinical Info: Aaron Specimen Number: [id number] CPT code: 03993 METHODOLOGY: Deparaffinized sections of prefer/formalin-fixed tissue or PAP/DQ stained slides are incubated with monoclonal/polyclonal antibodies/oligonucleotide probes. Localization is made via biotin free immunoperoxidase method. Appropriate controls are performed and reacted as expected. Results on target cell population are indicated in the following table: RESULTS: ANTIBODY / CLONE RESULT H Pylori (polyclonal) negative These tests were developed and their performance characteristics determined by [facility]. They may not have been cleared or approved by the U.S. Food and Drug Administration. The FDA has determined that such clearance or approval is not necessary. The above immunohistochemical/dualISH markers are ordered and reviewed by the Pathologist. INTERPRETATION: Gastric body, biopsy: Negative for Helicobacter pylori organisms. 06/16/2024
--- NOTE | 2024-06-14 15:50 | PCM.PN.BLA ---
Progress Note He is for upper endoscopy today to evaluate acute blood loss anemia. Physical Exam Narrative Feeling ok, knee some soreness, no fever, EGD planned Const alert and no apparent distress Resp normal air movement and clear to auscultation bilaterally Cardio regular rate and regular rhythm GI soft to palpation, non-tender and non-distended Skin no rashes or lesions noted Assessment & Plan Assessment/Plan (1) Hypovolemic shock: PLAN: Plan 60-year-old gentleman status post total left knee replacement with hypovolemic shock. Unknown etiology. He also has acute blood loss anemia with a hemoglobin from 12.6-9.3 currently 8.5. No overt signs of GI blood loss. Plan is for EGD. Holding heparin. We will also evaluate his upper GI tract to see if there is any signs of cirrhosis.
--- NOTE | 2024-06-14 16:14 | PCM.PRE.AN2 ---
ASA Classification* ASA Classification ASA Classification: 3 Assessment & Plan Anesthesia* Anesthesia Assessment Anesthesia Assessment: Discussed sedation and/or anesthesia options, risks, benefits, and alternatives with patient/parents/legal guardian/POA. Questions invited. The patient/parents/legal guardian/POA seems to understand and agrees to proceed with anesthesia plan. Reviewed the physical assessment, medical history, allergy history and patient home medications list prior to surgery/procedure/anesthetic and documented any changes. Performed airway and anesthesia risk assessments. Anesthesia Type Anesthesia Type: MAC History Source History Obtained from:: Patient and Chart Anesthesia Focused Assessment* Temperature: 97.3 F Pulse Rate: 67 Blood Pressure: 136/82 Respiratory Rate: 16 Pulse Ox: 98 Oxygen Delivery Method: Room Air Airway Assessment Mouth opens: >3 cm Mallampati Score: II Teeth Condition: Intact Neck Range of motion (ROM): Full ROM Focused Labs Anesthesia Preop lab: CBC WBC 6.3 K/mm3 (4.4-11.0) 06/14/24 05:00 06/14/24 RBC 2.42 M/mm3 (4.6-6.2) L 06/14/24 05:00 06/14/24 Hgb 7.9 g/dL (13.0-16.5) L 06/14/24 05:00 06/14/24 Hct 23.7 % (40-54) L 06/14/24 05:00 06/14/24 Plt Count 225 K/mm3 (150-450) 06/14/24 05:00 06/14/24 CHEMISTRY Potassium 4.2 mmol/L (3.5-5.1) 06/13/24 04:05 06/13/24 Sodium 136 mmol/L (136-145) 06/13/24 04:05 06/13/24 Magnesium 2.7 mg/dL (1.6-2.6) H 06/11/24 06:25 06/11/24 Phosphorus 4.1 mg/dL (2.5-4.9) 06/11/24 06:25 06/11/24 BUN 23 mg/dL (7-18) H 06/13/24 04:05 06/13/24 Creatinine 1.03 mg/dL (0.70-1.30) 06/13/24 04:05 06/13/24 Glucose 122 mg/dL (74-106) H 06/13/24 04:05 06/13/24 COAG PT 15.2 SECONDS (11.7-14.9) H 06/14/24 05:00 06/14/24 Pre-Assessment Diagnosis/Proposed Procedure Planned Operative Procedure(s): EGD Anesthesia History 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 When Was Last Pacemaker Check QUESTION #4 FULL TEXT: You/Your Family Experience fever (hyperthermia) with Anesthesia Last Oral Intake Last Oral intake: Last Oral Intake NPO since Meds taken in AM with sips of water? 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 Female HX of Motion Sickness HX of N/V After Surgery Non-Smoker Duration of Surgery greater than 60 minutes Number of Risk Factors PONV Score Height & Weight Height & Weight: Anesthesia: Height & Weight Height 5 ft 9 in 06/14/24 15:48 Weight: 81.1 kg 06/14/24 15:48 Body Mass Index (BMI) 26.4 06/14/24 03:21 Respiratory Assessment Respiratory Assessment - professor of economics: Respiratory Tract Infection Hx - professor of economics Hx Respiratory Tract Infection STOP Sleep Apnea STOP Sleep Apnea - professor of economics: STOP Sleep Apnea - professor of economics Hx Hypertension No 06/11/24 13:16 Hx Sleep Apnea No 06/11/24 05:47 CPAP BIPAP Do you snore loudly (louder No 06/11/24 05:47 than talking or can be heard Do you often feel tired/ No 06/11/24 05:47 fatigued/ sleepy during daytime? Has anyone observed you stop No 06/11/24 05:47 breathing during sleep? STOP Results Negative 06/11/24 05:47 QUESTION #5 FULL TEXT : Do you snore loudly (louder than talking or can be heard through closed doors)? 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 Specify any problems Hx of Preganancy in last 3 N/A 06/11/24 05:47 Months Nurse Filling Out Transfusion ASTOUDT 06/11/24 05:47 & Questions: Date: 06/11/24 06/11/24 05:47 Time: 05:56 06/11/24 05:47 Patient unable to answer at this time (ie. confused, unrespo /Reproduction History /Reproductive History - professor of economics: /Reproductive Hx- professor of economics Hx Now Gestational Age (in weeks): EDC: Hx Hx Para Hx Section SAB Active Medications Active Medications: Current Medications Generic Name Dose Route Start Last Admin Trade Name Freq PRN Reason Stop Dose Admin Acetaminophen 650 mg 06/11/24 05:38 06/12/24 09:09 Acetaminophen 325 Mg Tablet PO 650 mg Q4H PRN PRN Administration Fever, pain 1-1010 Al Hydroxide/Mg Hydroxide 30 ml 06/11/24 05:38 Mag Hydrox/Al Hydrox/Simeth 30 Ml Udc PO Q6H PRN PRN Gastric Burning Albuterol Sulfate 2.5 mg 06/11/24 05:38 Albuterol 2.5 Mg/3 Ml Vial.Neb. INHALATION Q2H PRN PRN Dyspnea, wheezing Aspirin 81 mg 06/11/24 08:00 06/14/24 08:00 Aspirin E.C. 81 Mg Tablet PO Not Given BREAKFAST DEIDRE Atorvastatin Calcium 10 mg 06/11/24 22:00 06/13/24 20:13 Atorvastatin Calcium 10 Mg Tablet PO 10 mg QHS DEIDRE Administration Calamine/Phenol 1 applic 06/11/24 10:00 06/14/24 11:20 Menthol/Lanolin/Calamine/Znox 113 Gm Tube TOPICAL 1 applic BID DEIDRE Administration Protocol Chlorhexidine Gluconate 1 each 06/11/24 10:00 06/14/24 08:00 Chlorhexidine Gluc 2% Cloth 1 Each [place] TOPICAL Not Given DAILY [facility] Cyanocobalamin 1,000 mcg 06/14/24 08:00 06/14/24 08:00 Cyanocobalamin 500 Mcg Tablet PO Not Given BREAKFAST [facility] Docusate Sodium 100 mg 06/11/24 10:00 06/14/24 08:00 Docusate Sodium 100 Mg Capsule PO Not Given BID DEIDRE Guaifenesin 10 ml 06/11/24 05:38 Guaifenesin 10 Ml Udc (200mg/10ml) PO Q4H PRN PRN COUGH Pantoprazole Sodium 40 mg/ 110 mls @ 330 mls/hr 06/11/24 06:00 06/14/24 13:30 Sodium Chloride IV Infused Q12 DEIDRE Infusion Sodium Chloride 100 mls @ 15 mls/hr 06/11/24 06:00 06/14/24 11:19 IV 15 mls/hr .Q6H40M PRN Administration Saline Flush Sodium Chloride 100 mls @ 15 mls/hr 06/11/24 06:00 IV .Q6H40M PRN Additional IVPB Infusion Cefepime HCl 2 gm/ Sodium 100 mls @ 200 mls/hr 06/14/24 22:00 Chloride IV Q8 [facility] Melatonin 3 mg 06/11/24 05:38 Melatonin 3 Mg Tablet PO QHS PRN PRN INSOMNIA Ondansetron HCl 4 mg 06/11/24 05:38 Ondansetron 4 Mg/2 Ml Vial IV Q8H PRN PRN NAUSEA/VOMITING Oxycodone HCl 5 - 10 mg 06/12/24 12:19 06/14/24 06:24 Oxycodone 5 Mg Tablet PO 10 mg Q4H PRN PRN Administration Pain Score 1-10 Prochlorperazine Edisylate 5 mg 06/11/24 05:38 Prochlorperazine 10 Mg/2 Ml Vial IV Q4H PRN PRN Breakthrough Nausea/Vomiting Sodium Chloride 10 - 40 ml 06/11/24 06:00 0.9 % Nacl (Sterile) Posiflush 10 Ml IV UD PRN Port access or dressing change Sodium Chloride 10 - 40 ml 06/11/24 06:00 06/13/24 20:13 0.9% Saline Lock 10 Ml Syringe IV 10 ml UD PRN Administration Multilumen/Blackwell Flush Sodium Chloride 10 - 40 ml 06/11/24 06:00 0.9% Saline Lock 10 Ml Syringe IV UD PRN SALINE FLUSH [facility] Medical History Hyperlipidemia Amputation of toe of right foot Internal hemorrhoids without mention of complication Diverticulosis of colon (without mention of hemorrhage) Conrad's cyst Carpal tunnel syndrome Lower back injury Hypertension Home Medications ?Medication ?Instructions ?Recorded ?Last Taken ?Type lisinopril 20 mg tablet 20 mg PO QDAY 02/23/24 Unknown History multivitamin with minerals 1 cap PO QDAY 02/23/24 Unknown History pantoprazole 40 mg tablet,delayed 40 mg PO QDAY 02/23/24 Unknown History release aspirin 81 mg tablet,delayed 81 mg PO QDAY #90 tabs 02/29/24 Unknown Rx release (Adult Aspirin Regimen) cholecalciferol (vitamin D3) 25 25 mcg PO QDAY 02/29/24 Unknown History mcg (1,000 unit) capsule rosuvastatin 5 mg tablet 5 mg PO QDAY 02/29/24 Unknown History carvedilol 6.25 mg tablet 6.25 mg PO BID #180 tabs 04/04/24 Unknown Rx Allergy/AdvReac Type Severity Reaction Status Date / Time terbinafine Allergy Severe Rash Verified 06/10/24 22:48 Family History Mother Congestive heart failure CVA (cerebral vascular accident) Father CAD (coronary artery disease) Brother Myocardial infarction Diabetes Obesity Kidney failure Obstructive sleep apnea Surgical History History of cataract extraction with lens replacement History of hand surgery History of repair of rotator cuff Status post surgical removal of nail matrix of toe of right foot History of lumbar laminectomy Hx of excision of lamina of cervical vertebra for decompression of spinal cord Hx of left knee surgery H/O neck surgery Social History household members: spouse Smoking Status: Never smoker Smokeless tobacco user: chewing tobacco and other Electronic Cigarette Use: not used alcohol intake: current alcohol intake frequency: a few times a week Alcohol type: beer details: (2) CANS OF BEER (12OZ) PER WEEK Review of Systems (Anesthesia) ROS Narrative System reviewed and no additional complaints, except as documented. Physical Exam Const alert and oriented x3
--- NOTE | 2024-06-14 16:15 | PCM.POST.ANE ---
Anesthesia: Postop Eval I Current Vital Signs Temperature: 99.2 F Pulse Rate: 98 Blood Pressure: 114/61 Respiratory Rate: 18 Pulse Ox: 98 Oxygen Delivery Method: Room Air Assessment Airway patent: Yes Spontaneous unlabored respirations: Yes Mental status: Awake nausea: No Vomiting: No Anesthesia Complication: No Fluid Hydration Crystalloid volume administer (ml): 10 Total IV fluid infused: 10 Progress Note Anesthesia document: Postop Eval 1 completed: Yes
--- NOTE | 2024-06-14 16:19 | OP.CCLET_ITS ---
06/14/2024 Finn Lovett [address] [place] [address] Re : Upper GI endoscopy procedure for Jaspreet Hayes Dear Dr. Lovett This procedure was performed on Friday, June 14, 2024. My impressions and recommendations are as follows: Impressions : - Mild Schatzki ring. - Medium-sized hiatal hernia. - Portal hypertensive gastropathy. Biopsied. - Normal third portion of the duodenum. Recommendations : - [facility]. - Resume previous diet. - Continue present medications. - Await pathology results. My findings are described in the full procedure note, which is enclosed. If I can be of further assistance, please feel free to contact me at . Sincerely, Michael Llamas, 06/14/2024 4:18:54 PM This report has been signed electronically.
--- NOTE | 2024-06-14 16:19 | OP.EGD_ITS ---
Patient Name: Jaspreet Hayes Procedure Date: 06/14/2024 3:56 PM Date of : 1955 Age: 68 Procedure: Upper GI endoscopy Indications: Acute post hemorrhagic anemia Providers: Michael Llamas DO Medicines: Monitored Anesthesia Care Patient Profile: This is a 68 year old male. Refer to note in patient chart for documentation of history and physical. Patient has symptoms. Complications: No immediate complications. Procedure: Pre-Anesthesia Assessment: - Prior to the procedure, a History and Physical was performed, and patient medications and allergies were reviewed. The patient is competent. The risks and benefits of the procedure and the sedation options and risks were discussed with the patient. All questions were answered and informed consent was obtained. Patient identification and proposed procedure were verified by the physician in the pre-procedure area. Mental Status Examination: alert and oriented. Airway Examination: normal oropharyngeal airway and neck mobility. Respiratory Examination: clear to auscultation. CV Examination: normal. ASA Grade Assessment: II - A patient with mild systemic disease. After reviewing the risks and benefits, the patient was deemed in satisfactory condition to undergo the procedure. The anesthesia plan was to use moderate sedation / analgesia (conscious sedation). Immediately prior to administration of medications, the patient was re-assessed for adequacy to receive sedatives. The heart rate, respiratory rate, oxygen saturations, blood pressure, adequacy of pulmonary ventilation, and response to care were monitored throughout the procedure. The physical status of the patient was re-assessed after the procedure. After obtaining informed consent, the endoscope was passed under direct vision. Throughout the procedure, the patient's blood pressure, pulse, and oxygen saturations were monitored continuously. The Endoscope was introduced through the mouth, and advanced to the third part of the duodenum. Small bowel enteroscopy was deemed necessary. The upper GI endoscopy was accomplished without difficulty. The patient tolerated the procedure well. Scope In: 4:05:13 PM Scope Out: 4:10:41 PM Total Procedure Duration Time 0 hours 5 minutes 28 seconds Findings: A mild Schatzki ring was found in the lower third of the esophagus. A medium-sized hiatal hernia was present. Mild portal hypertensive gastropathy was found in the cardia, in the gastric fundus and in the gastric body. Biopsies were taken with a cold forceps for histology. Verification of patient identification for the specimen was done. Estimated blood loss was minimal. Biopsies were taken with a cold forceps for Helicobacter pylori testing. Verification of patient identification for the specimen was done. Estimated blood loss was minimal. The third portion of the duodenum was normal. Impression: - Mild Schatzki ring. - Medium-sized hiatal hernia. - Portal hypertensive gastropathy. Biopsied. - Normal third portion of the duodenum. Recommendation: - Return patient to [facility] for ongoing care. - Resume previous diet. - Continue present medications. - Await pathology results. Procedure Code(s): --- Professional --- 44484, Small intestinal endoscopy, enteroscopy beyond second portion of duodenum, not including ileum; with biopsy, single or multiple CPT copyright 2021 [employer]. All rights reserved. The codes documented in this report are preliminary and upon trout farmer review may be revised to meet current compliance requirements. Michael Llamas DO 06/14/2024 4:18:54 PM This report has been signed electronically. Number of Addenda: 0 Note Initiated On: 06/14/2024 3:56 PM
--- NOTE | 2024-06-14 17:46 | POSTOPAN2_ITS ---
Anesthesia Postop Eval I Sum Postop Eval Completion status Anesthesia document: Postop Eval 1 completed: Yes Anesthesia Postop Eval I Summary Anesthesia Postop Eval I Summary: Anesthesia Postop Eval I: Assessment Summary Airway patent Yes 06/14/24 16:26 [email or web address] Spontaneous unlabored Yes 06/14/24 16:26 DETECTIVE [email or web address] respirations Mental status Awake 06/14/24 16:26 [email or web address] nausea No 06/14/24 16:26 DETECTIVE [email or web address] Vomiting No 06/14/24 16:26 [email or web address] Anesthesia Postop Eval I: Fluid Summary Crystalloid volume administer 10 06/14/24 16:26 [email or web address] (ml) Colloids volume administered ( ml) Blood Product volume administered (ml) Total IV fluid infused 10 06/14/24 16:26 [email or web address] Anesthesia Postop Eval I: Summary Notes Anesthesia Complication No 06/14/24 16:26 [email or web address] Anesthesia Complication Comment: Post-operative progress note Anesthesia: Postop Eval II Evaluation Mental status: Awake and Calm Pain Level: 4 nausea: No Vomiting: No Complications Anesthesia Complication: No
--- NOTE | 2024-06-14 17:46 | PCM.POSTANE2 ---
Anesthesia Postop Eval I Sum Postop Eval Completion status Anesthesia document: Postop Eval 1 completed: Yes Anesthesia Postop Eval I Summary Anesthesia Postop Eval I Summary: Anesthesia Postop Eval I: Assessment Summary Airway patent Yes 06/14/24 16:26 [email or web address] [email or web address] Spontaneous unlabored Yes 06/14/24 16:26 I&C [email or web address] respirations Mental status Awake 06/14/24 16:26 I&C [email or web address] nausea No 06/14/24 16:26 I&C [email or web address] Vomiting No 06/14/24 16:26 I&C [email or web address] Anesthesia Postop Eval I: Fluid Summary Crystalloid volume administer 10 06/14/24 16:26 I&C [email or web address] (ml) Colloids volume administered ( ml) Blood Product volume administered (ml) Total IV fluid infused 10 06/14/24 16:26 [email or web address] [email or web address] Anesthesia Postop Eval I: Summary Notes Anesthesia Complication No 06/14/24 16:26 I&C [email or web address] Anesthesia Complication Comment: Post-operative progress note Anesthesia: Postop Eval II Evaluation Mental status: Awake and Calm Pain Level: 4 nausea: No Vomiting: No Complications Anesthesia Complication: No
[2024-06-14] MEDS: proCHLORPERazine 10 MG/2 ML Vial 5 MG IV (18:07)
--- NOTE | 2024-06-14 18:22 | NURSING ---
Pt amd wanted to know if we can ask dr. Whitfield about taking off the meplex drsg since post op instructions as an outpt state that after 5 days it should come off and It's day 6. This RN called dR. Whitfield and he okayed to have ittaken off but pt decided he did not want to take it off because he was afraid of getting stool in the incision from the prep he is about to possably have.
[2024-06-14] MEDS: Atorvastatin Calcium 10 MG Tablet PO (21:11)
[2024-06-15 03:38] VITALS: BP 146/73; PULSE 85; RESP 18; TEMP 37.1; O2SAT 95
[2024-06-15] MEDS: oxyCODONE 5 MG Tablet PO ×2 (04:19→09:07)
[2024-06-15 05:12] LABS: Absolute Neutrophil Count 4.2 X10^3/uL (2.0-7.7); Basophil# 0.03 X10^3/uL; Basophil% 0.5 % (0-1); Eosinophil# 0.12 X10^3/uL; Hematocrit 25.4 % (40-54); Hemoglobin 8.6 g/dL (13.0-16.5); Lymphocyte % 13.3 % (19-41); Mean Corp Hgb Conc 33.9 g/dL (32-36); Mean Corpuscular Hgb 33.2 pg (27.0-32.0); Mean Corpuscular Volume 98.1 fL (80-94); Monocyte# 0.87 X10^3/uL; Monocyte% 14.5 % (0-10); NRBC Flagged by Analyzer 0 % (0-5); Neutrophil # 4.16 X10^3/uL (2.7-7.7); Platelet Count 266 K/mm3 (150-450); RBC Distribution Width CV 13.3 % (11.6-14.6); RBC Distribution Width SD 48.5 fl (35.1-43.9); Red Blood Count 2.59 M/mm3 (4.6-6.2)
[2024-06-15] MEDS: Cefepime HCl 2 GM in 0.9% Normal Saline (100mL MB+) 100 ML IV (05:17)
[2024-06-15 05:48] VITALS: BMI 26.1
[2024-06-15 06:41] LABS: Anion Gap 13 (5-15); BUN 12 mg/dL (4-19); BUN/Creat Ratio 13.7 RATIO (10-20); Calcium 8.2 mg/dL (7.6-11.0); Carbon Dioxide 19.5 mmol/L (22.0-29.0); Chloride 99 mmol/L (96-108); Creatinine, Serum 0.9 mg/dL (0.8-1.3); EST Glomerular Filtration Rate 93 (>60); Estimated Creatinine Clearance 78.56 ml/min; Glucose 110 mg/dL (70-99); Potassium 3.7 mmol/L (3.3-5.1); Sodium Level 132 mmol/L (133-145)
[2024-06-15] MEDS: Pantoprazole Sodium 40 MG in 0.9% Normal Saline (100mL MB+) 100 ML 330 MG IV (08:57)
[2024-06-15] MEDS: Aspirin E.C. 81 MG Tablet PO (08:57)
[2024-06-15] MEDS: Cyanocobalamin 500 MCG Tablet 1000 MCG PO (08:57)
[2024-06-15 09:02] VITALS: BP 134/82; PULSE 91; RESP 15; TEMP 37.5; O2SAT 94
[2024-06-15] MEDS: Menthol/Lanolin/Calamine/Znox 113 GM Tube 1 APPLIC TOPICAL (09:08)
[2024-06-15 09:40] VITALS: BP 139/64; PULSE 99; RESP 15; TEMP 37.5; O2SAT 100
[2024-06-15] MEDS: Sodium Ferric Gluconat/Sucrose 250 MG in 0.9% Normal Saline (250mL Bag) 250 ML 135 MG IV (10:20)
--- NOTE | 2024-06-15 10:41 | PCM.PN.ID ---
Physical Exam Narrative Feeling ok, had EGD, no fever, no n/v. No abd pain. Const alert and no apparent distress General Appearance: cooperative Resp normal air movement and clear to auscultation bilaterally Cardio regular rate and regular rhythm GI soft to palpation, non-tender and non-distended Extremity General Extremity: edema Skin Skin Narrative: LLE bandaged ID ID: Route of nutrition/ use of supplements: [] Nutritional Intake: [] IV Site: [] Vieira Catheter: [] Assessment & Plan Assessment/Plan (1) Hypovolemic shock: PLAN: L TKA 06/08/24. Cxs neg, no fever, normal wbc, normal esr. Unsuccessful L knee aspiration. Syncope and hypotension may have been related to pain meds, diarrhea after bowel regimen. CT did report cirrhosis and ascites, could consider paracentesis, but overall no clear sign of active infection. On cefepime currently. Ucx less than 1k enterococcus-like. Ok for d/c home off of abx. Will follow micheal, d.w Dr. Ruiz (2) Status post total left knee replacement:
--- NOTE | 2024-06-15 11:12 | PCM.DC ---
Discharge Instructions Diet Discharge Diet: Low fat / Low cholesterol DC O2, CPAP, BIPAP needs Home O2 Discharge instructions: No Dressing / Incision Discharge Activity: Return to Normal Activity Dressing / Incision Call your doctor if you observe: Fever of 101 or Higher, Shortness of breath, Dizziness, Fainting spells, Swelling in the ankles, Chest pain and Increased palpitations (irregular heartbeat) Follow Up Care Test Results: Test results from this visit will be discussed in further detail at your follow-up appointment, if applicable. Discharge Plan Admission Admit Date/Time: 06/11/24 04:27 Attending Provider: Siva Ruiz Primary Care Provider: Finn Lovett Consulting Providers: Ta Whitfield; Justin Galeas; Stephani Soria; Kvng Sal Instructions Additional Instructions / Restrictions: Follow-up with your primary care doctor in 3 to 5 days to monitor your hemoglobin. Discharge Orders/Prescriptions Prescriptions: New cyanocobalamin (vitamin B-12) 500 mcg Tablet 1,000 mcg PO BREAKFAST 30 Days Qty: 60 0RF Continued pantoprazole 40 mg tablet,delayed release (DR/EC) 40 mg PO QDAY lisinopril 20 mg tablet 20 mg PO QDAY multivitamin with minerals Capsule 1 cap PO QDAY rosuvastatin 5 mg tablet 5 mg PO QDAY cholecalciferol (vitamin D3) 25 mcg (1,000 unit) capsule 25 mcg PO QDAY aspirin [Adult Aspirin Regimen] 81 mg tablet,delayed release (DR/EC) 81 mg PO QDAY Qty: 90 3RF carvedilol 6.25 mg tablet 6.25 mg PO BID Qty: 180 3RF Rx Instructions: must administer with a meal/food Referrals / Follow Up: Finn Lovett MD [Primary Care Provider] - Within 1 Week Disposition Disposition (needs filled in before D/C Order can be placed): Home, Self Care
[2024-06-15 12:49] LABS: BUN 16 mg/dL (4-19); Calcium 8.3 mg/dL (7.6-11.0); Chloride 103 mmol/L (96-108); Creatinine, Serum 0.8 mg/dL (0.8-1.3); EST Glomerular Filtration Rate 96 (>60); Estimated Creatinine Clearance 88.38 ml/min; Glucose 98 mg/dL (70-99); Potassium 4.1 mmol/L (3.3-5.1); Sodium Level 134 mmol/L (133-145)
--- NOTE | 2024-06-15 12:54 | PHA.DC.MC.R ---
Pharmacy [facility] has performed discharge medication reconciliation and counseling for this patient. 1. CYANOCOBALAMIN 1000MCG PO BREAKFAST The patient's discharge medication list was reviewed for discrepancies and discrepancies were resolved. The patient was counseled on the following discharge medications and changes in medications for homegoing were reviewed. The Reason for Use, instructions for use, and potential side effects were reviewed for all new medications. The patient's questions regarding all of their medications were answered. The patient was able to verbally demonstrate an understanding of their discharge medications. Medications at Discharge Home Medications lisinopril 20 mg tablet 20 mg PO QDAY blood pressure 02/23/24 multivitamin with minerals 1 cap PO QDAY supplement 02/23/24 pantoprazole 40 mg tablet,delayed release 40 mg PO QDAY acid reflux 02/23/24 aspirin 81 mg tablet,delayed release (Adult Aspirin Regimen) 81 mg PO QDAY heart [employer] #90 tabs 02/29/24 cholecalciferol (vitamin D3) 25 mcg (1,000 unit) capsule 25 mcg PO QDAY supplement 02/29/24 rosuvastatin 5 mg tablet 5 mg PO QDAY cholesterol 02/29/24 carvedilol 6.25 mg tablet 6.25 mg PO BID blood pressure #180 tabs 04/04/24 cyanocobalamin (vitamin B-12) 500 mcg tablet 1,000 mcg (2 x 500 mcg) PO BREAKFAST 30 days #60 tabs 06/15/24
--- NOTE | 2024-06-15 12:59 | CASEMGMT ---
Patient has order for discharge. RN CM in to discuss needs at discharge, at bedside. Patient to resume outpatient therapy at discharge. Patient denies needs or help at discharge. Patient and had no further questions or concerns.
[2024-06-15 14:40] VITALS: BP 139/71; PULSE 92; RESP 17; TEMP 36.6; O2SAT 94
--- NOTE | 2024-06-15 15:33 | PCM.PN.ORT ---
Subjective Subjective Patient seen and evaluated today. Doing well. Ready for discharge when I saw him. Ultimately, Patient was admitted for hypovolemic shock likely in relation to postoperative use of narcotics in association with constipation. Knee has been doing well. Objective Data Objective Data Vital Signs: Vital Signs Temp Pulse Resp BP Pulse Ox O2 Del Method 97.9 F 92 17 139/71 H 94 Room Air 06/15/24 14:40 06/15/24 14:40 06/15/24 14:40 06/15/24 14:40 06/15/24 14:40 06/15/24 14:40 Oxygen Delivery Method Room Air Weight: 176 lb 12.972 oz Body Mass Index (BMI) 26.1 Intake & Output: Intake and Output for Last 24 Hours 06/13/24 06/14/24 06/15/24 23:59 23:59 23:59 Intake Total 1070 / 1070 520 / 520 630 / 630 Output Total 700 / 700 400 / 400 700 / 700 Balance 370 / 370 120 / 120 -70 / -70 Lab / Micro Data 06/15/24 04:38 06/15/24 04:38 Labs: Laboratory Results - last 24 hr 06/14/24 05:00: Sodium Cancelled 06/14/24 05:00: Sodium 134, Potassium Cancelled 06/14/24 05:00: Potassium 4.1, Chloride Cancelled, Chloride Direct 103, Carbon Dioxide Cancelled 06/14/24 05:00: Carbon Dioxide 19.0 L, Anion Gap Cancelled 06/14/24 05:00: Anion Gap TNP, BUN Cancelled 06/14/24 05:00: BUN 16, Creatinine Cancelled 06/14/24 05:00: Creatinine 0.8, Estim Creat Clear Calc Cancelled 06/14/24 05:00: Estim Creat Clear Calc 88.38, Est GFR (MDRD) Non-Af Cancelled 06/14/24 05:00: Est GFR (MDRD) Non-Af 96, BUN/Creatinine Ratio Cancelled 06/14/24 05:00: BUN/Creatinine Ratio 20.0, Glucose Cancelled 06/14/24 05:00: Glucose 98, Calcium Cancelled 06/14/24 05:00: Calcium 8.3 06/15/24 04:38: WBC 6.0, RBC 2.59 L, Hgb 8.6 L, Hct 25.4 L, MCV 98.1 H, MCH 33.2 H, MCHC 33.9, RDW Std Deviation 48.5 H, RDW Coeff of Tangela 13.3, Plt Count 266, MPV 10.0, Immature Gran % (Auto) 0.700, Neut % (Auto) 69.0, Lymph % (Auto) 13.3 L, [place] % (Auto) 14.5 H, Eos % (Auto) 2.0, Baso % (Auto) 0.5, Absolute Neuts (auto) 4.2, Absolute Lymphs (auto) 0.80 L, Nucleated RBC % 0, Sodium 132 L, Potassium 3.7, Chloride Direct 99, Carbon Dioxide 19.5 L, Anion Gap 13, BUN 12, Creatinine 0.9, Estim Creat Clear Calc 78.56, Est GFR (MDRD) Non-Af 93, BUN/Creatinine Ratio 13.7, Glucose 110 H, Calcium 8.2 Micro: Microbiology 06/13/24 08:50 Stool Stool Occult Blood (SANDY) - Final Occult Blood Positive 06/11/24 08:06 Urine, Clean Catch Urine Culture - Final GPC Poss Enterococcus sp 06/11/24 04:05 Blood Culture (Wb) - Central Line Blood Culture - Preliminary No growth in 48 hours. 06/11/24 03:14 Blood Culture (Wb) - Left Hand Blood Culture - Preliminary No growth in 48 hours. 06/12/24 09:20 Mucosa - Nose SARS-CoV-2, Influenza & RSV (PCR) - Final 06/11/24 13:00 Stool Stool Lactoferrin - Final 06/11/24 08:00 Nasal Secretion MRSA (PCR) - Final Physical Exam Narrative Left lower extremity: Patient has lateral ecchymosis. Calves are soft and supple. Thigh soft and supple. Moderate swelling of the calf. Mild ankle swelling. Expected postoperative fusion of the knee. No significant erythema. Const alert and oriented x3 Assessment & Plan Assessment/Plan (1) Status post total left knee replacement: PLAN: Plan Postop day 7 left total knee replacement Patient overall doing well. She be discharged on his continue postoperative regimen of DVT prophylaxis follow postoperative course. Plan to resume physical therapy on Wednesday. May remove dressing when he gets home leave open to air. May begin to shower again once he gets home. This was all discussed with patient and his who is at bedside. Will continue to ice once he gets home.
--- NOTE | 2024-06-15 16:22 | PCM.DC.SUM ---
Providers Date of Admission: 06/11/24 Primary Care Physician: Dr. Finn Lovett MD Consultations 06/11/24 05:38 Consult: Infectious Disease Routine Consulting Provider: Justin Galeas Reason for Consult: Shock, possible septic joint. EMERGENT Consult: No Notified: Yes Date Notified: 06/11/24 Time Notified: 04:36 Method of Notification: Answering Service Consult: Asian Studies Professor / Pulmonary Medicine Routine Consulting Provider: Intensivists/Pulmonary Med Reason for Consult: Shock, KIMBERLY, Syncope, Poss DVT, Constipation EMERGENT Consult: No Notified: Yes Date Notified: 06/11/24 Time Notified: 04:39 Method of Notification: Text Consult: Orthopedics Routine Consulting Provider: Ta Whitfield Reason for Consult: Recent L TKR, concern for poss post-op infection EMERGENT Consult: No Notified: Yes Date Notified: 06/11/24 Time Notified: 04:35 Method of Notification: Verbal 06/13/24 11:38 Consult: Gastroenterology Routine Consulting Provider: [facility] Reason for Consult: gi bleed EMERGENT Consult: No Notified: Yes Date Notified: 06/13/24 Time Notified: 13:33 Method of Notification: Text Reason For Visit: SHOCK, SIRS, KIMBERLY, SYNCOPAL EVENT, CONSTIPATION Diagnosis Discharge Diagnosis (1) Status post total left knee replacement: Status: Acute Code(s): Z96.652 - Presence of left artificial knee joint Medications at Discharge Home Medications lisinopril 20 mg tablet 20 mg PO QDAY blood pressure 02/23/24 multivitamin with minerals 1 cap PO QDAY supplement 02/23/24 pantoprazole 40 mg tablet,delayed release 40 mg PO QDAY acid reflux 02/23/24 aspirin 81 mg tablet,delayed release (Adult Aspirin Regimen) 81 mg PO QDAY heart health #90 tabs 02/29/24 cholecalciferol (vitamin D3) 25 mcg (1,000 unit) capsule 25 mcg PO QDAY supplement 02/29/24 rosuvastatin 5 mg tablet 5 mg PO QDAY cholesterol 02/29/24 carvedilol 6.25 mg tablet 6.25 mg PO BID blood pressure #180 tabs 04/04/24 cyanocobalamin (vitamin B-12) 500 mcg tablet 1,000 mcg (2 x 500 mcg) PO BREAKFAST 30 days #60 tabs 06/15/24 Hospital Course Operations None Procedures Central line placement and EGD Summary of Care Provided Minutes Spent on Discharge: 38 Hospital Course: Per HPI: The patient is a 68 y/o M w/ PMHx: Chew tobacco use, CKD stage III unclear subtype per previous GFR trending, HTN, HLD, CAD with markedly elevated coronary calcium scoring who presents to the [facility] ED on 06/11/24 with history of recent left total knee replacement 06/08/2024 with no bowel movement since his intervention with significant abdominal discomfort resulting with eventual onset nausea and emesis with episodes of lightheadedness and dizziness especially with activity with episode the day prior 06/09/2024 with near syncopal events prompting EMS call but upon arrival he had seemed improved and deferred being evaluated however on 06/10/2024 patient had recurrent event and at that time had a complete syncopal event with no trauma but did shortly lose consciousness with again lightheadedness, dizziness prompting family to bring him in for evaluation. does report that his left lower extremity seems much larger over the last couple days since operative intervention. Patient and deny any specific bleeding or drainage from the knee. Workup in the ED included T98, heart rate 110, BP 151/84, respiratory rate 19, 100% room air--> repeat vital signs with heart rate 91, BP dropping to 70/45 and then improving with intervention to 101/47, respiratory rate 17, 96% room air, CBC with WBC 9.3, he 1 12.6, MCV 101.3, platelet 202 with left shift and lymphopenia, CMP with sodium 131, potassium 5.4 but noted to be moderately hemolyzed thus likely falsely elevated, lactic acid 2.7, BUN/currently 1/2.15, GFR 33, glucose 149, T. bili 2.60, D bili 0.69, AST/ALT 53/37, alk phos 54, lipase 49, magnesium 3.2, procalcitonin 2.51, chest x-ray with no acute cardiopulmonary findings, KUB with mild gaseous distention of the transverse colon with no obvious obstruction, CT abdomen pelvis without contrast with noted cirrhosis with mild perihepatic ascites but in the read it self and notes only mild lobulated liver, significant mount of stool throughout the colon with evidence of constipation, sigmoid diverticulosis. In the ED patient ministered 2 L normal saline, Zofran 4 mg IV x 1, prochlorperazine 5 mg IV x 1 and eventually initiated on norepinephrine. Given elevated procalcitonin, lactic acidosis and eventual evidence of shock, undifferentiated patient administered IV vancomycin and IV Zosyn with blood culture x 2 obtained. Given significant hypotension initiation on norepinephrine hospitalist directed central line placement performed in the emergency room (see separate note). Hospital Course: 1. Distributive shock: Patient recently had left TKR on 06/08. The patient presented with sepsis with clinical indicators of tachycardia, low-grade fever, tachypnea due to exact focus of infection with acute sepsis-related organ dysfunction as evidenced by IV fluid unresponsive hypotension requiring vasopressor and lactic acidosis. Patient on IV cefepime and vancomycin. Orthopedic surgery, Dr. Whitfield consulted and notified. Left knee x-ray initially reviewed and shows no suspicious bone lesion or fracture, normal alignment, no effusion but soft tissue swelling. ID also consulted Discussed with the orthopedic PA after I notified orthopedic surgeon Dr. Whitfield. He saw the patient. He does not think patient is septic knee Doppler ultrasound elopement note obtained urine. He tried to aspirate left knee but it was applied. He recommends 81 mg aspirin twice daily for 4 weeks postoperatively. Patient has ecchymosis around left knee. He also said that patient fell down after surgery. Asian Studies Professor note reviewed. Empiric coverage with IV cefepime and vancomycin. Advised p.o. midodrine 10 mg every 8 hours if MAP drops. 06/12/2024: Shock is due to hypovolemia, pressors are discontinued with proper resuscitation. This is felt to be due to the diarrheal illness 06/14/2024: Upper extremity Dopplers negative for DVT 06/15/2024: His hypovolemia resolved his diarrhea improved. He was able to tolerate p.o. intake. Antibiotics were discontinued, he did not have a knee joint infection after surgery and urine was unremarkable. I discussed with him and his family the plan for discharge today they expressed understanding of the risks and benefits of going home and would like to go home today. Recommend outpatient monitoring and follow-up with his PCP as well as with orthopedic surgery as scheduled #2. Acute kidney injury on CKD stage IIIa: Suspect admitted to shock but related to GI loss. Baseline creatinine around 1.41. Admitted with BUN/creatinine 31/2.35. Monitor kidney function. Hold nephrotoxic medication 06/12/2024: Renal function is slowly improving 06/15/2024: Renal function is back to baseline. Recommend outpatient monitoring #3. Syncopal Event: Twelve-lead EKG done in the ED shows sinus rhythm. She is preop EKG on 05/19 sinus rhythm with PACs. On the vehicle monitor technician it is A-fib. Twelve-lead EKG ordered. Patient does not have any cardiac or chest comfort including chest pain pressure tightness or shortness of breath. Twelve-lead EKG repeat was done and shows NSR 86 bpm. #4. Abdominal pain, nausea, emesis secondary to significant postoperative constipation with CT imaging with questionable mildly lobulated liver: Continue IV fluid. Patient was started on GoLytely and antibiotic patient to start having very loose bowel movement multiple 4 times. #6. Acute macrocytic anemia, possibly related with mild blood loss given recent operative intervention: Admission H&H 12.6 dropped to 9.8. Preop H&H was 13.1/38% MCV 101. 06/12/2024: Continues to have a drop in his hemoglobin down to 8.5 today. Might be dilutional we will recheck this afternoon 06/13/2024: continue with PPI, his vitamin B12 is low at 200 will be replaced however is fecal occult is also positive so placement clear liquid diet and consult G.I. for possible scope 06/14/2024: Plan for EGD today if negative family would like to prep for colonoscopy during this admission 06/15/2024: EGD was unremarkable and gastroenterology did not recommend a colonoscopy. Will continue with oral B12 replacement. Of note his iron studies were abnormal with a normal TIBC and a low iron and low saturation and normal ferritin. Given the fact that his iron was 7 and his saturation was 2.5% I did elect to provide him with Venofer today. Continued outpatient monitoring for both his iron as well as his B12 #8. Hyperbilirubinemia, mild transaminitis with lobated liver noted: Total bilirubin increased to 2.6, direct 0.69 therefore mainly indirect hyperbilirubinemia. AST 53 mildly elevated ALT and alkaline phosphatase normal. Does not go with ischemic hepatitis may be from surgical history/inflammation or drug-induced. Monitor liver chemistry. CT shows mild lobulated liver and reported cirrhosis, treatment to be effective. On my review, liver does not seem nodular or lobulated therefore less likely cirrhosis but hypoattenuation, fat edema. #9. CAD: Patient with outpatient coronary calcium scoring which is markedly elevated, noted follow-up with cardiology 02/29/2024 with EKG at that time with nonspecific ST changes, recommendation given asymptomatic to obtain stress test and echocardiogram which were performed, 03/13/2024 stress testing unremarkable per review of exercise test report but no obvious final impression noted, echocardiogram 03/13/2024 with EF 60%, mild MVI, mild TBI, mildly dilated aortic root with negative bubble contrast study. Will continue baby aspirin, statin, holding hypertensive regimen as noted. #10. Hypertension: Can resume home meds on discharge #11. Hyperlipidemia: Continue patient on statin therapy. #12. Chew tobacco: Encouraged tobacco cessation, nicotine replacement if necessary. Physical Exam Narrative General: Alert, Oriented x3, Cooperative, No apparent distress HEENT: Atraumatic, PERRLA, EOMI, Normocephalic Oral: Moist Mucosa Neck: Supple, No JVD Lungs: Diminished, Normal air movement, No rhonchi, No wheeze, No rales Cardiovascular: Regular rate, Regular Rhythm, Normal S1, Normal S2, No murmurs Abdomen: Soft, Non Tender, Non-Distended, No Hepato-splenomegaly Extremities: Left lower extremity edema, Capillary Refill Less than 3 Seconds Skin: Left knee dressing in place Musculoskeletal: No Tenderness to Palpation of Joints or Extremities Neurological: No focal neurological deficits, Motor Exam 5/5 strength throughout, Sensory exam intact to light touch and pain Psych/Mental Status: Normal Affect, Appropriate Weight / BMI Weight Weight: 176 lb 12.972 oz Body Mass Index (BMI) 26.1 ABG / Lab / Microbiology Data 06/15/24 04:38 06/15/24 04:38 Laboratory: Laboratory Results - last 24 hr 06/14/24 05:00: Sodium Cancelled 06/14/24 05:00: Sodium 134, Potassium Cancelled 06/14/24 05:00: Potassium 4.1, Chloride Cancelled, Chloride Direct 103, Carbon Dioxide Cancelled 06/14/24 05:00: Carbon Dioxide 19.0 L, Anion Gap Cancelled 06/14/24 05:00: Anion Gap TNP, BUN Cancelled 06/14/24 05:00: BUN 16, Creatinine Cancelled 06/14/24 05:00: Creatinine 0.8, Estim Creat Clear Calc Cancelled 06/14/24 05:00: Estim Creat Clear Calc 88.38, Est GFR (MDRD) Non-Af Cancelled 06/14/24 05:00: Est GFR (MDRD) Non-Af 96, BUN/Creatinine Ratio Cancelled 06/14/24 05:00: BUN/Creatinine Ratio 20.0, Glucose Cancelled 06/14/24 05:00: Glucose 98, Calcium Cancelled 06/14/24 05:00: Calcium 8.3 06/15/24 04:38: WBC 6.0, RBC 2.59 L, Hgb 8.6 L, Hct 25.4 L, MCV 98.1 H, MCH 33.2 H, MCHC 33.9, RDW Std Deviation 48.5 H, RDW Coeff of Tangela 13.3, Plt Count 266, MPV 10.0, Immature Gran % (Auto) 0.700, Neut % (Auto) 69.0, Lymph % (Auto) 13.3 L, [place] % (Auto) 14.5 H, Eos % (Auto) 2.0, Baso % (Auto) 0.5, Absolute Neuts (auto) 4.2, Absolute Lymphs (auto) 0.80 L, Nucleated RBC % 0, Sodium 132 L, Potassium 3.7, Chloride Direct 99, Carbon Dioxide 19.5 L, Anion Gap 13, BUN 12, Creatinine 0.9, Estim Creat Clear Calc 78.56, Est GFR (MDRD) Non-Af 93, BUN/Creatinine Ratio 13.7, Glucose 110 H, Calcium 8.2 Microbiology: Microbiology 06/13/24 08:50 Stool Stool Occult Blood (SANDY) - Final Occult Blood Positive 06/11/24 08:06 Urine, Clean Catch Urine Culture - Final GPC Poss Enterococcus sp 06/11/24 04:05 Blood Culture (Wb) - Central Line Blood Culture - Preliminary No growth in 48 hours. 06/11/24 03:14 Blood Culture (Wb) - Left Hand Blood Culture - Preliminary No growth in 48 hours. 06/12/24 09:20 Mucosa - Nose SARS-CoV-2, Influenza & RSV (PCR) - Final 06/11/24 13:00 Stool Stool Lactoferrin - Final 06/11/24 08:00 Nasal Secretion MRSA (PCR) - Final D/C Instructions Discharge Diet: Low fat / Low cholesterol Call your doctor if you observe: Fever of 101 or Higher, Shortness of breath, Dizziness, Fainting spells, Swelling in the ankles, Chest pain and Increased palpitations (irregular heartbeat) DC O2, CPAP, BIPAP Needs Home O2 Discharge instructions: No Meaningful Use Info Meaningful Use Meaningful Use Diagnoses (Choose all that apply): None applicable Ischemic Stroke Statin Dosing Therapy Reference: STATIN DOSE THERAPY REFERENCE: * Patients > 75 years receive moderate or high dose statin therapy. * Patients 75 years or YOUNGER should receive HIGH intensity statin dose unless contraindicated. You will be required to document reason for non-treatment if statin daily dose does not meet guidelines. HIGH DOSE STATIN THERAPY DAILY Atorvastatin > than or = to 40 mg Rosuvastatin > than or = to 20 mg Amlodipine + Atorvastatin > than or = to 2.5/40 mg Ezetimibe + Simvastatin 10/80 mg Simvastatin 80mg Discharge Plan Admission Admit Date/Time: 06/11/24 04:27 Attending Provider: Siva Ruiz Primary Care Provider: Finn Lovett Consulting Providers: Ta Whitfield; Justin Galeas; Stephani Soria; Kvng Sal Instructions Additional Instructions / Restrictions: Follow-up with your primary care doctor in 3 to 5 days to monitor your hemoglobin. Discharge Orders/Prescriptions Prescriptions: New cyanocobalamin (vitamin B-12) 500 mcg Tablet 1,000 mcg PO BREAKFAST 30 Days Qty: 60 0RF Continued pantoprazole 40 mg tablet,delayed release (DR/EC) 40 mg PO QDAY lisinopril 20 mg tablet 20 mg PO QDAY multivitamin with minerals Capsule 1 cap PO QDAY rosuvastatin 5 mg tablet 5 mg PO QDAY cholecalciferol (vitamin D3) 25 mcg (1,000 unit) capsule 25 mcg PO QDAY aspirin [Adult Aspirin Regimen] 81 mg tablet,delayed release (DR/EC) 81 mg PO QDAY Qty: 90 3RF carvedilol 6.25 mg tablet 6.25 mg PO BID Qty: 180 3RF Rx Instructions: must administer with a meal/food Referrals / Follow Up: Finn Lovett MD [Primary Care Provider] - Within 1 Week Disposition Disposition (needs filled in before D/C Order can be placed): Home, Self Care Charges/Coding Visit Charges Inpatient E&M: 66057 Disch Hosp >30min
== END 2024-06-15 15:58 | disposition home or self-care (01) | DRG 871 ==
LOC: ED 06-11 04:10 → ICU 06-11 05:57 → PCU 06-13 23:36
PROVIDERS: Anesthesiology; Internal Medicine; Internal Medicine Gastroenterology; Admitting Provider Family Medicine; Emergency Provider Emergency Medicine; PCP Family Medicine; Visit Provider Family Medicine
PROC: 0DJ08ZZ Inspection of Upper Intestinal Tract, Via Natural or Artificial Opening Endoscopic (ICD-10-PCS; CPT 43235; principal; 2024-06-14 14:55)
DX: A41.9 Sepsis, unspecified organism (principal); R57.8 Other shock; R57.1 Hypovolemic shock; E87.20 Acidosis, unspecified; D62 Acute posthemorrhagic anemia; R18.8 Other ascites; K76.6 Portal hypertension; T84.54XA Infection and inflammatory reaction due to internal left knee prosthesis, initial encounter; N17.9 Acute kidney failure, unspecified; N18.31 Chronic kidney disease, stage 3a; I12.9 Hypertensive chronic kidney disease with stage 1 through stage 4 chronic kidney disease, or unspecified chronic kidney disease; D53.9 Nutritional anemia, unspecified; E86.0 Dehydration; E78.5 Hyperlipidemia, unspecified; I25.10 Atherosclerotic heart disease of native coronary artery without angina pectoris; R19.7 Diarrhea, unspecified; E86.1 Hypovolemia; K44.9 Diaphragmatic hernia without obstruction or gangrene; F17.220 Nicotine dependence, chewing tobacco, uncomplicated; I95.9 Hypotension, unspecified; E80.7 Disorder of bilirubin metabolism, unspecified; K31.89 Other diseases of stomach and duodenum; R11.2 Nausea with vomiting, unspecified; K59.09 Other constipation; Z89.411 Acquired absence of right great toe; K57.30 Diverticulosis of large intestine without perforation or abscess without bleeding; F10.90 Alcohol use, unspecified, uncomplicated; W18.30XA Fall on same level, unspecified, initial encounter; D72.810 Lymphocytopenia; R14.0 Abdominal distension (gaseous); K76.89 Other specified diseases of liver; K29.40 Chronic atrophic gastritis without bleeding; Z79.82 Long term (current) use of aspirin; Z82.3 Family history of stroke; Z96.1 Presence of intraocular lens; Z98.890 Other specified postprocedural states; R55 Syncope and collapse; Z88.8 Allergy status to other drugs, medicaments and biological substances; Z79.899 Other long term (current) drug therapy; Z79.02 Long term (current) use of antithrombotics/antiplatelets; Z96.652 Presence of left artificial knee joint; R74.01 Elevation of levels of liver transaminase levels; Y79.2 Prosthetic and other implants, materials and accessory orthopedic devices associated with adverse incidents; R73.09 Other abnormal glucose; Z53.9 Procedure and treatment not carried out, unspecified reason; Y92.239 Unspecified place in hospital as the place of occurrence of the external cause; T40.2X5A Adverse effect of other opioids, initial encounter; R23.3 Spontaneous ecchymoses
CPT/HCPCS: 36415; 36556; 71045; 73560; 74018; 74176; 80048; 80053; 80076; 81001; 82274; 82607; 82728; 82746; 83036; 83540; 83550; 83605; 83630; 83690; 83735; 84100; 84145; 84484; 85014; 85018; 85025; 85610; 85652; 85730; 86140; 87040; 87077; 87086; 87088; 87631; 87641; 88305; 88342; 93005; 93971; 94668; 94762; 97116; 97163; 97166; 97530; 97535; 97802; 97803; 99285; A4216; J2405; J2916; J3420

== ENCOUNTER 2025-01-18 06:22 | Emergency (ER) | payer MEDICARE, SELFPAY ==
[2025-01-18 06:23] VITALS: BP 149/96; PULSE 64; RESP 16; TEMP 37; O2SAT 99; BMI 24.7
[2025-01-18] MEDS: Oxymetazoline 0.05% 1 SPRAY SPRAY.BTL 2 SPRAY NASAL ×2 (06:27→06:51)
--- NOTE | 2025-01-18 06:32 | EDS_ITS ---
HPI <Dr. Bryan Yancey MD - Last Filed: 01/18/25 09:11> HPI - URI History of Present Illness Chief Complaint: Nosebleed Detail of Chief Complaint: Acute nosebleed this morning. Informant: patient and spouse/S.O. Onset/Context/Timing Onset: Today and Hours Context: Sudden Onset Timing: Continuous Current Severity: Moderate Maximum Severity: Moderate Narrative Narrative: 69-year-old male history of prostate cancer. When he blew his nose this morning he had started bleeding. Right-sided primarily then out the left. He takes a baby aspirin a day. But he is on no other blood thinners. Denies any trauma. He had nosebleeds before but typically not this severe. No recent illness. Prior similar symptoms: Yes Recent Illness/Hospitalization: No ROS <Dr. Bryan Yancey MD - Last Filed: 01/18/25 09:11> ROS ED ROS Narrative Denies recent illness. Constitutional Constitutional ED: Denies chills or fever(s) Eyes Eyes: Denies blurry vision ENT ENT ED: Denies ear pain Cardiovascular Cardiovascular: Denies chest pain Respiratory/Chest Respiratory/Chest: Denies cough or dyspnea Gastrointestinal Gastrointestinal: Denies abdominal pain Genitourinary Genitourinary ED: Denies dysuria or hematuria Musculoskeletal Musculoskeletal: Denies arthralgias or back pain Integumentary Denies abscess or Abrasions Neurologic Neurologic: Denies headache(s) Psychiatric Psychiatric: Denies anxiety or depression Endocrine Endocrinology: Denies cold intolerance Hematologic/Lymphatic Hematologic/Lymphatic: Denies easy bleeding, easy bruising or lymphadenopathy Allergic/Immunologic Allergic/Immunologic ED: Denies mouth swelling, tongue swelling or urticaria [facility] <Dr. Bryan Yancey MD - Last Filed: 01/18/25 09:11> [facility] Medical History Hyperlipidemia Amputation of toe of right foot Internal hemorrhoids without mention of complication Diverticulosis of colon (without mention of hemorrhage) Conrad's cyst Carpal tunnel syndrome Lower back injury Hypertension Home Medications ?Medication ?Instructions ?Recorded ?Last Taken ?Type lisinopril 20 mg tablet 20 mg PO QDAY blood pressure 02/23/24 Unknown History multivitamin with minerals 1 cap PO QDAY supplement Unknown History pantoprazole 40 mg tablet,delayed 40 mg PO QDAY acid r eflux 02/23/24 Unknown History release aspirin 81 mg tablet,delayed 81 mg PO QDAY heart healt h #90 tabs 02/29/24 Unknown Rx release (Adult Aspirin Regimen) cholecalciferol (vitamin D3) 25 25 mcg PO QDAY supplem ent 02/29/24 Unknown History mcg (1,000 unit) capsule rosuvastatin 5 mg tablet 5 mg PO QDAY cholesterol 04/11 Unknown History carvedilol 6.25 mg tablet 6.25 mg PO BID blood pressur e #180 04/04/24 Unknown Rx tabs amoxicillin 875 mg-potassium 1 tab PO BID #10 tabs 06/13 Unknown Rx clavulanate 125 mg tablet Allergy/AdvReac Type Severity Reaction Status Date / Time terbinafine Allergy Severe Rash Verified 01/18/25 06:22 Family History Mother Congestive heart failure CVA (cerebral vascular accident) Father CAD (coronary artery disease) Brother Myocardial infarction Diabetes Obesity Kidney failure Obstructive sleep apnea Surgical History History of cataract extraction with lens replacement History of hand surgery History of repair of rotator cuff Status post surgical removal of nail matrix of toe of right foot History of lumbar laminectomy Hx of excision of lamina of cervical vertebra for decompression of spinal cord Hx of left knee surgery H/O neck surgery Social History household members: spouse Smoking Status: Never smoker Smokeless tobacco user: chewing tobacco and other Electronic Cigarette Use: not used alcohol intake: current alcohol intake frequency: a few times a week Alcohol type: beer details: (2) CANS OF BEER (12OZ) PER WEEK EXAM <Dr. Bryan Yancey MD - Last Filed: 01/18/25 09:11> Physical Exam Narrative Exam Narrative: 69-year-old male sitting upright in bed. Vital signs stable afebrile. Companied by his . H EENT exam scab blood and clots from both sides of his nose worse on the right. There is blood that is posterior pharynx. Neck nontender no JVD. Lungs clear to auscultation. Heart regular rhythm rate about 65 no murmur. Chest wall and ribs nontender. Abdomen soft nontender. Moving all 4 extremities. Nontender no edema. No bruising. No petechiae or purpura. Back nontender. He is awake and alert. He is answering questions and following commands. Const Vital Signs: 01/18/25 06:23 01/18/25 07:59 Temperature 98.6 F 97.5 F L Temperature Source Temporal Pulse Rate 64 63 Respiratory Rate 16 15 Blood Pressure 149/96 H 145/95 H Blood Pressure Mean 113 111 Pulse Ox 99 99 Oxygen Delivery Method Room Air Positive well nourished and well developed; Negative for obese, cachectic or contractures General Appearance ED: well developed and NAD; Negative for cachectic, contractures, cyanotic or diaphoretic Nutritional Appearance: Negative for cachectic or obese HEENT Reports moist mucous membranes HEENT Narrative: Nosebleed bilaterally with clots on the right. Mild bleeding posterior pharynx. normocephalic Face and Sinus: Negative for sinus tenderness Teeth and Gingiva: Negative for caries Throat: Negative for posterior oropharynx normal Eyes PERRL and EOMs intact bilaterally Neck no lymphadenopathy, supple, no meningeal signs and no JVD General: Negative for anterior neck swelling or lymphadenopathy Resp normal respiratory effort and clear to auscultation bilaterally Cardio S1 normal heart sound, S2 normal heart sound and no murmurs Rate: regular rate Rhythm: regular rhythm GI non-tender, non-distended and no masses Auscultation: normoactive bowel sounds Palpation: soft; Negative for tender, guarding, hepatomegaly or splenomegaly Back/Spine no CVA tenderness and normal ROM General Back: Negative for CVA tenderness Cervical Spine: Negative for cervical spine tenderness Thoracic Spine / Upper Back: Negative for thoracic spinal tenderness Lumbar Spine / Lower Back: Negative for lumbar spinal tenderness Sacrum: Negative for tenderness Extremity normal to inspection and full ROM General Extremety ED: Negative for cyanosis or tenderness General Extremity: Negative for cyanosis Neuro oriented x3 and CN's II-XII intact bilaterally Sensorium / Orientation: alert, oriented to person, oriented to place and oriented to time Motor Exam: strength 5/5 throughout Psych mental status grossly normal Skin Lesions: no lesions Rashes: no rashes <Dr. Nae Boyd, DO - Last Filed: 01/18/25 15:53> Physical Exam Const Vital Signs: 01/18/25 06:23 01/18/25 07:59 Temperature 98.6 F 97.5 F L Temperature Source Temporal Pulse Rate 64 63 Respiratory Rate 16 15 Blood Pressure 149/96 H 145/95 H Blood Pressure Mean 113 111 Pulse Ox 99 99 Oxygen Delivery Method Room Air [facility] <Dr. Bryan Yancey MD - Last Filed: 01/18/25 09:11> [facility] Narrative Medical decision making narrative: 69-year-old male with right-sided nosebleed. On aspirin. Afrin nasal spray soak cotton balls he placed in both sides of his nose. Nosebleed continued to improve and the bleeding slowed down significantly with the Afrin soaked cotton balls bilaterally. They were changed twice. I placed an anterior Merisel nasal tampon the right side of his nose. Bleeding co mpletely resolved. The posterior pharynx the bleeding resolved in the left naris there was no bleeding. There was nothing to cauterize. Patient was watched in the emergency department for period time and then discharged to home treated his anterior right-sided nosebleed. Antibiotics were prescribed. Oliver: Patient signed out to me pending repeat evaluation after packing. Patient has no further bleeding. Hemoglobin normal at 13.5. Tolerating without difficulty. Patient reevaluated at approximately 0800 is resting comfortably. No oozing appreciated. No blood noted in the posterior oropharynx. Will be discharged home to follow-up with ENT (is already established with Dr. Jones). Instructed to call the office for follow-up and to have the packing removed. Given return precautions. Counseled on holding aspirin until he follows up with ENT. Is given a prescription for Augmentin to take with the packing is in for more than 48 hours. Patient verbalized agreement understand this plan. Patient ambulate emergency room without further bleeding. Discharged home in stable and improved condition. History & Record Review Discussion w/independent historian: Patient and Family Lab Data Lab results narrative: CBC showed a white count of 3.8. H&H 13.5 and 38. Platelets 209. Labs: Laboratory Results - last 24 hr 01/18/25 06:47 WBC 3.8 L RBC 3.91 L Hgb 13.5 Hct 38.1 L MCV 97.4 H MCH 34.5 H MCHC 35.4 RDW Std Deviation 46.1 H RDW Coeff of Tangela 12.8 Plt Count 209 MPV 9.5 <Dr. Nae Boyd, DO - Last Filed: 01/18/25 15:53> [facility] MDM Narrative Medical decision making narrative: 69-year-old male with right-sided nosebleed. On aspirin. Afrin nasal spray soak cotton balls he placed in both sides of his nose. Oliver: Patient signed out to me pending repeat evaluation after packing. Patient has no further bleeding. Hemoglobin normal at 13.5. Tolerating without difficulty. Patient reevaluated at approximately 0800 is resting comfortably. No oozing appreciated. No blood noted in the posterior oropharynx. Will be discharged home to follow-up with ENT (is already established with Dr. Jones). Instructed to call the office for follow-up and to have the packing removed. Given return precautions. Counseled on holding aspirin until he follows up with ENT. Is given a prescription for Augmentin to take with the packing is in for more than 48 hours. Patient verbalized agreement understand this plan. Patient ambulate emergency room without further bleeding. Discharged home in stable and improved condition. Lab Data Attestation: I reviewed the patient's lab results. Labs: Laboratory Results - last 24 hr 01/18/25 06:47 WBC 3.8 L RBC 3.91 L Hgb 13.5 Hct 38.1 L MCV 97.4 H MCH 34.5 H MCHC 35.4 RDW Std Deviation 46.1 H RDW Coeff of Tangela 12.8 Plt Count 209 MPV 9.5 Procedures <Dr. Bryan Yancey MD - Last Filed: 01/18/25 09:11> Other Procedures Procedure(s): Right anterior nosebleed. Nothing to cauterize. Bleeding re solved with cotton balls soaked with Afrin. Right anterior nasal packing Merisel pack placed. Patient tolerated well. Discharged to home. Outpatient follow-up with ENT. Discharge Plan Triage Chief Complaint: Nosebleed ED Provider: Bryan Yancey Dx/Rx/DC Orders Clinical Impression: Anterior epistaxis, Acute anterior epistaxis Instructions: ED Epistaxis (Adult) Prescriptions: New amoxicillin-pot clavulanate 875-125 mg tablet 1 tab PO BID Qty: 10 0RF No Action pantoprazole 40 mg tablet,delayed release (DR/EC) 40 mg PO QDAY lisinopril 20 mg tablet 20 mg PO QDAY multivitamin with minerals Capsule 1 cap PO QDAY rosuvastatin 5 mg tablet 5 mg PO QDAY cholecalciferol (vitamin D3) 25 mcg (1,000 unit) capsule 25 mcg PO QDAY aspirin [Adult Aspirin Regimen] 81 mg tablet,delayed release (DR/EC) 81 mg PO QDAY Qty: 90 3RF carvedilol 6.25 mg tablet 6.25 mg PO BID Qty: 180 3RF Rx Instructions: must administer with a meal/food Primary Care Provider: Finn Lovett Referrals: Jayce Gray MD [Med Staff - Active Staff, Ear Nose Throat (ENT)] - 3-5 Days Activity Restrictions/Additional Instructions: If rebleeds hold direct pressure for 20 to 30 minutes if unable to stop return. Packing out in 3 days. Follow-up with ENT. Print Language: Bengali Disposition Disposition: Home, Self Care Discharge Date/Time: 01/18/25 08:21
[2025-01-18 06:52] LABS: Hematocrit 38.1 % (40-54); Hemoglobin 13.5 g/dL (13.0-16.5); Mean Corp Hgb Conc 35.4 g/dL (32-36); Mean Corpuscular Volume 97.4 fL (80-94); Mean Platelet Vol. 9.5 fl (6.2-12.0); Platelet Count 209 K/mm3 (150-450); RBC Distribution Width CV 12.8 % (11.6-14.6); RBC Distribution Width SD 46.1 fl (35.1-43.9); Red Blood Count 3.91 M/mm3 (4.6-6.2); White Blood Count 3.8 K/mm3 (4.4-11.0)
[2025-01-18 07:59] VITALS: BP 145/95; PULSE 63; RESP 15; TEMP 36.4; O2SAT 99
== END 2025-01-18 08:21 | disposition home or self-care (01) ==
PROVIDERS: Emergency Provider Emergency Medicine; PCP Family Medicine; Visit Provider Emergency Medicine
DX: R04.0 Epistaxis (principal); Z79.82 Long term (current) use of aspirin; E78.5 Hyperlipidemia, unspecified; I10 Essential (primary) hypertension
CPT/HCPCS: 30901; 85027; 99282; A4216

== ENCOUNTER → 2025-03-28 | Outpatient (CLI) | payer MEDICARE, SELFPAY ==
--- NOTE | 2025-03-28 14:46 | CT_ITS ---
PROCEDURE: CTA CHEST W/WO CONTRAST 03/28/2025 REASON FOR EXAM: CHECK AORTA TECHNIQUE: Procedure Code: [id number] Modality: CT Procedure: CTA CHEST W/WO CONTRAST CT angiography of the chest is performed with interested in the aorta following the intravenous administration of contrast. Axial sagittal and coronal reformatted images are submitted for interpretation. 3D post processing was performed CONTRAST: Isovue 370 VOLUME: 100 mL One or more dose reduction techniques were used (e.g., Automated exposure control, adjustment of the mA and/or kV according to patient size, use of iterative reconstruction technique). RADIATION DOSE SUMMARY: DLP: 431.35 mGycm COMPARISON: None relevant FINDINGS: Hardware: None Lymph nodes: No supraclavicular axillary or mediastinal lymphadenopathy. Prominent right hilar lymph node measuring 17 mm (image 146 series S2). Multiple calcified mediastinal lymph nodes appreciated. Heart: Normal-sized heart. No pericardial effusion. Heavy coronary arterial calcifications. Thoracic Aorta: Dilatation of the infundibular root at 4 cm. The ascending aorta is mildly dilated measuring 44 mm. The aorta at the level of the mid arch measured 32 mm. The proximal descending aorta measures 28 mm. Distal thoracic aorta at the level of the diaphragm measures 24 mm. No dissection. Pulmonary Vessels: Normal caliber. No filling defects centrally to suggest pulmonary embolus. Lungs and Airways: Dependent atelectasis. Calcified granulomata. No suspicious pulmonary nodule or mass. No consolidation. Patent airway. Pleura: No effusion. No pneumothorax. Upper Abdomen: Unremarkable Bones: Mild multilevel degenerative changes of the spine. No acute fracture. Status post anterior cervical fusion. CT/CTA Chest W/WO Contrast IMPRESSION: Dilatation of the ascending aorta measuring 40 mm. Heavy coronary arterial calcifications. Numerous calcified mediastinal lymph nodes with a prominent right hilar lymph n ode, likely related to granulomatous infection Reading Location: [facility]
== END | disposition home or self-care (01) ==
LOC: CT 14:46
PROVIDERS: PCP Family Medicine; Referring Provider Internal Medicine Cardiovascular Disease; Visit Provider Internal Medicine Cardiovascular Disease
DX: I77.810 Thoracic aortic ectasia (principal); I25.10 Atherosclerotic heart disease of native coronary artery without angina pectoris; I10 Essential (primary) hypertension; E78.5 Hyperlipidemia, unspecified
CPT/HCPCS: 71275; Q9967